=== PATIENT | male | born 1945 | race Caucasian/White ===

== ENCOUNTER 2021-12-18 14:33 | Emergency (ER) | payer MEDICARE ==
[~2021-12-18] VITALS: Ht 180.3 cm; Wt 93.5 kg
--- NOTE | 2021-12-18 16:19 | PHYS DOC ---
Past History Past Surgical History: Pacemaker, Other Additional Past Surgical Histo: open heart (EMILY PEREIRA APRN) Alcohol Use: None (EMILY PEREIRA APRN) Adult General Chief Complaint Chief Complaint: MEDICAL CLEARANCE HPI HPI Limited HPI related to severe Alzheimer's patient, HPI provided by patient's at bedside. Patient is a 76-year-old male with history of Alzheimer's dementia was sent here by home health nurse to be admitted to the geriatric behavioral psychiatric unit for evaluation to qualify for hospice care related to increased agitation at home. Patient's reports she has difficulties providing daily hygiene care for patient and it was recommended by the home health nurse to come to the emergency department for medical clearance for behavioral psych screening. (EMILY PEREIRA APRN) Review of Systems Review of Systems Limited ROS related to patient's severe Alzheimer's dementia. (EMILY PEREIRA APRN) Allergies Allergies Allergies Coded Allergies Type Severity Reaction Last Updated Verified No Known Drug Allergies 12/18/21 No (EMILY PEREIRA APRN) Physical Exam Physical Exam Constitutional: Well developed, well nourished, no acute distress, non-toxic appearance. 76-year-old male in no apparent distress. Patient confused, answers questions inappropriately, is easily directed by patient's . HENT: Normocephalic, atraumatic. Eyes: Conjunctiva normal, no discharge. Neck: Normal range of motion, no stridor. Cardiovascular: No cyanosis appreciated, distal cap refill less than 2 seconds. Heart sounds S1-S2 auscultation. Lungs & Thorax: Patient is in no respiratory distress, no audible adventitious lung sounds appreciated. Clear to auscultation all lung [place]. Abdomen: Nontender, no abnormalities noted. Skin: Warm, dry, no erythema, no rash. Back: No tenderness, no deformities. Extremities: No tenderness, no cyanosis, no clubbing, ROM intact, no edema. Neurologic: Alert and oriented to self only, normal motor function, normal sensory function, no focal deficits noted. Psychologic: Affect confused, patient has history of Alzheimer's dementia. (EMILY PEREIRA APRN) Current Patient Data Vital Signs Vital Signs Date Time Temp Pulse Resp B/P (MAP) Pulse Ox O2 Delivery O2 Flow Rate FiO2 12/18/21 14:39 98.0 71 11 148/69 (95) 98 Room Air (EMILY PEREIRA APRN) EKG EKG [] (EMILY PEREIRA APRN) Radiology/Procedures Radiology/Procedures [] (EMILY PEREIRA APRN) Heart Score C/O Chest Pain: No Risk Factors: Risk Factors: DM, Current or recent (<one month) smoker, HTN, HLP, family history of CAD, obesity. Risk Scores: Risk Factors: DM, Current or recent (<one month) smoker, HTN, HLP, family history of CAD, obesity. (EMILY PEREIRA APRN) Course & Med Decision Making Course & Med Decision Making Pertinent Labs and Imaging studies reviewed. (See chart for details) 76-year-old male, vital signs reviewed, resents emergency department for evaluation of psychiatric placement. Physical examination is consistent with Alzheimer's dementia patient, patient's reports she was told he could go straight to the behavioral health unit here at [facility], the behavioral health unit was called and did not know of any information of the patient but would be willing to accept placement tomorrow if a spot becomes available. Patient's called the patient's primary care physician Dr. Ba, a joint decision was made to send patient back home under the care of his as patient does not have any acute symptoms. Is not currently agitated, was brought here under the expectation this is the process to obtain hospice care, patient's reports the patient has no physical emergencies and she wishes to take him home at this time. The patient is nontoxic in appearance, is confused and at baseline per 's verbal explanation, will discharge patient to home under 's care, discussed return to ER precautions and concerns, it was reviewed with patient's that the emergency department will draw serum labs and obtain items for psychiatric placement, the patient's has refused this work her wishing to take him home. Discussed with the patient all findings and diagnostic testing as well as the need to follow-up with their primary care provider for further evaluation and treatment or return to the ED if any new or worsening symptoms. Strict return precautions were also discussed at length, the patient voiced understanding and agreement with the discharge planning. The patient was nontoxic in appearance, in no apparent distress, and hemodynamically stable at the time of disposition. (EMILY PEREIRA APRN) Dragon Disclaimer Dragon Disclaimer This electronic medical record was generated, in whole or in part, using a voice recognition dictation system. (EMILY PEREIRA APRN) Attending Co-Sign The patient was seen and interviewed as well as examined at the bedside. The chart was reviewed. The case was discussed. Agree with the plan of care. (IDANIA BARAHONA DO) Departure Departure: Impression: Primary Impression: Feared condition not demonstrated Disposition: 01 HOME / SELF CARE / HOMELESS Condition: GOOD Referrals: BÁRBARA BA (PCP) Additional Instructions: You were seen today in the emergency department for concerning behavioral changes at home. As we discussed, you and I have made a joint decision to discharge your to home under your care, please follow-up with Dr. aB today or tomorrow for ongoing management of your 's Alzheimer's dementia and concerns for hygiene care. Please return immediately to the emergency department for worsening symptoms or other concerns. Thank you for visiting our Emergency Department. It was a pleasure taking care of you today in the emergency department and we appreciate you trusting us with your care. If any additional problems come up don't hesitate to return to visit us. Please follow up with your primary care provider so they can plan additional care if needed a nd know about the problem that you had. If symptoms worsen come back to the Emergency Department. Any concerning symptoms that start such as chest pain, shortness of air, weakness or numbness on one side of the body, running high fevers or any other concerning symptoms return to the ER. EMILY PEREIRA APRN Dec 18, 2021 16:19 IDANIA BARAHONA DO Dec 19, 2021 11:35
[2021-12-18 16:30] VITALS: BP 155/74
== END 2021-12-18 16:30 | disposition home or self-care (01) ==
LOC: ER 14:33
DX: Z71.1 Person with feared health complaint in whom no diagnosis is made (principal); G30.9 Alzheimer's disease, unspecified; F02.80 Dementia in other diseases classified elsewhere, unspecified severity, without behavioral disturbance, psychotic disturbance, mood disturbance, and anxiety; Z95.0 Presence of cardiac pacemaker
CPT/HCPCS: 99283; 99284

== ENCOUNTER 2022-01-20 15:01 | Emergency (ER) | payer MEDICARE ==
[~2022-01-20] VITALS: Ht 180.3 cm; Wt 93.5 kg
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
--- NOTE | 2022-01-20 15:43 | EKG ---
[address] [address] Test Date: 2022-01-20 Test Time: 15:36:14 Pat Name: CEDRICK PUCKETT Department: Room: Gender: M Rehabilitation Psychologist: : 1945 Requested By: BOUBACAR VIDAL Order Number: [id number] Reading MD: Naveen Pierre Measurements Intervals [place] Rate: 71 P: 57 IN: 172 QRS: 71 QRSD: 90 T: 56 QT: 372 QTc: 409 Interpretive Statements A PACED VENTRICULAR PREMATURE COMPLEX(ES) ATRIAL PREMATURE COMPLEX(ES) NON SPECIFIC ST-T WAVE CHANGES Electronically Signed On 01-21-2022 17:39:23 HOTEL [employer] CON[employer]ERGE by Naveen Pierre
[2022-01-20] MEDS ORDERED: LORazepam 1 MG TABLET PO ONE (15:45)
[2022-01-20] MEDS ORDERED: OLANZapine 2.5 MG TABLET PO ONE (15:45)
--- NOTE | 2022-01-20 16:30 | RAD ---
CT brain without contrast HISTORY: Altered mental status, confusion CT scan of brain was done without contrast. Sinuses are clear. Mastoids are normally aerated. There i s no skull fracture. There is diffuse atrophy. There is decreased density in the periventricular whit e matter. There is decreased density in the right frontal lobe unchanged from the old study possibly an old CVA or old injury. There is no mass effect or shift of the midline. Ventricles are mildly dila ozzie from atrophy. An acute CVA is not identified. IMPRESSION: 1. Atrophy and chronic white matter changes. 2. Small area of encephalomalacia in the right frontal lobe unchanged from the old study. 3. No intracranial hemorrhage or other acute finding. PQRS Compliance Statement: One or more of the following individualized dose reduction techniques were utilized for this examinat ion: 1. Automated exposure control 2. Adjustment of the mA and/or kV according to patient size 3. Use of iterative reconstruction technique Electronically signed by: Reynaldo Elaine MD (01/20/2022 4:28 PM) [id number]
[2022-01-20 16:45] LABS: BASO % 1 % (0-3); EOS # 0.1 x10^3/uL (0.0-0.7); EOS % 1 % (0-3); HEMOGLOBIN 14.1 g/dL (13.0-17.5); LYMPH # 1.1 x10^3/uL (1.0-4.8); LYMPH % 16 % (24-48); MEAN CORPUSCULAR HEMOGLOBIN 29 pg (25-35); MEAN CORPUSCULAR HGB CONC 33 g/dL (31-37); MEAN CORPUSCULAR VOLUME 90 fL (79-100); MONO # 0.6 x10^3/uL (0.0-1.1); MONO % 9 % (0-9); NEUT # 4.9 x10^3uL (1.8-7.7); NEUT % 74 % (31-73); PLATELET COUNT 121 x10^3/uL (140-400); RED CELL DISTRIBUTION WIDTH 14.5 % (11.5-14.5); WHITE BLOOD COUNT 6.6 x10^3/uL (4.0-11.0)
[2022-01-20 16:54] LABS: CALCIUM 9.4 mg/dL (8.5-10.1); CREATININE 1.4 mg/dL (0.7-1.3); GFR 49.1; POTASSIUM 4.3 mmol/L (3.5-5.1)
[2022-01-20 17:06] LABS: ALBUMIN 3.6 g/dL (3.4-5.0); ALBUMIN/GLOBULIN RATIO 1.2 (1.0-1.7); MAGNESIUM 2.5 mg/dL (1.8-2.4); PHOSPHORUS 3.4 mg/dL (2.6-4.7); TOTAL BILIRUBIN 0.4 mg/dL (0.2-1.0); TOTAL PROTEIN 6.7 g/dL (6.4-8.2)
[2022-01-20 17:58] LABS: INFLUENZA A PATIENT NEGATIVE (NEGATIVE); INFLUENZA B PATIENT NEGATIVE (NEGATIVE)
[2022-01-21 08:16] LABS: BACTERIA,URINE 0 /HPF (0-FEW); CLARITY,URINE CLEAR; COLOR,URINE YELLOW; GLUCOSE,URINE NEG (NEG); NITRITE,URINE NEG (NEG); SQUAMOUS EPITHELIAL CELL,UR OCC /LPF
[2022-01-22 13:59] VITALS: BP 167/82
[2022-01-22] MEDS ORDERED: ALPR0.254 PO (16:21)
[2022-01-22] MEDS ORDERED: HALO2TAB PO (16:21)
[2022-01-22] MEDS ORDERED: MEMA10TA PO (16:21)
[2022-01-22] MEDS ORDERED: MIRA50TA3 PO (16:21)
[2022-01-22] MEDS ORDERED: PANT20TA4 PO (16:21)
[2022-01-22] MEDS ORDERED: FEXO180T16 PO (16:21)
[2022-01-22] MEDS ORDERED: CRESTOR20 MG PO (16:21)
[2022-01-22] MEDS ORDERED: BENA20TA84 PO (16:21)
[2022-01-22] MEDS ORDERED: ASPI-889 PO (16:21)
[2022-01-22] MEDS ORDERED: DONE10TA7 PO (16:21)
[2022-01-22] MEDS ORDERED: METO25TA4 PO (16:21)
== END 2022-01-22 14:43 ==
LOC: ER 15:01
DX: R45.6 Violent behavior (principal); G30.9 Alzheimer's disease, unspecified; F02.80 Dementia in other diseases classified elsewhere, unspecified severity, without behavioral disturbance, psychotic disturbance, mood disturbance, and anxiety; Z20.822 Contact with and (suspected) exposure to COVID-19; Z95.0 Presence of cardiac pacemaker
CPT/HCPCS: 70450; 80053; 81001; 83735; 83880; 84100; 84484; 85025; 87086; 87428; 93005; 96372; 99285; J2060; P9612; U0003

== ENCOUNTER 2022-01-22 15:15 | Inpatient (IN) | payer MEDICARE ==
[~2022-01-22] VITALS: Ht 177.8 cm; Wt 91.4 kg
[2022-01-22] MEDS ORDERED: CRESTOR20 MG PO (16:21)
[2022-01-22] MEDS ORDERED: ASPI-889 PO (16:21)
[2022-01-22] MEDS ORDERED: BENA20TA84 PO (16:21)
[2022-01-22] MEDS ORDERED: MEMA10TA PO (16:21)
[2022-01-22] MEDS ORDERED: FEXO-212 PO (16:21)
[2022-01-22] MEDS ORDERED: PANT20TA4 PO (16:21)
[2022-01-22] MEDS ORDERED: HALO2TAB PO (16:21)
[2022-01-22] MEDS ORDERED: DONE10TA7 PO (16:21)
[2022-01-22] MEDS ORDERED: ALPR0.254 PO (16:21)
[2022-01-22] MEDS ORDERED: METO25TA4 PO (16:21)
[2022-01-22] MEDS ORDERED: MIRA50TA3 PO (16:21)
[2022-01-22] MEDS ORDERED: HALOPERIDOL 0.5 MG TABLET PO PRN (16:30)
[2022-01-22 16:41] VITALS: BP 126/73
[2022-01-22] MEDS ORDERED: METHYL SALICYLATE/MENTHOL TOPICAL OINTMENT 57GM TUBE. TP PRN (16:45)
[2022-01-22] MEDS ORDERED: ACETAMINOPHEN 325 MG TABLET PO PRN (16:45)
[2022-01-22] MEDS ORDERED: MAG HYDROX/AL HYDROX/SIMETH 30 ML ORAL.SUSP PO PRN (16:45)
[2022-01-22] MEDS ORDERED: OLANZapine 2.5 MG TABLET PO PRN (17:00)
[2022-01-22 19:59] LABS: ALBUMIN 3.6 g/dL (3.4-5.0); CALCIUM 9.8 mg/dL (8.5-10.1); CREATININE 1.4 mg/dL (0.7-1.3); GFR 49.1; MAGNESIUM 2.4 mg/dL (1.8-2.4); POTASSIUM 4.4 mmol/L (3.5-5.1); TOTAL BILIRUBIN 0.5 mg/dL (0.2-1.0); TOTAL PROTEIN 7.2 g/dL (6.4-8.2)
[2022-01-22 20:01] LABS: BASO % 0 % (0-3); EOS # 0.1 x10^3/uL (0.0-0.7); EOS % 2 % (0-3); HEMATOCRIT 48.3 % (39.0-53.0); HEMOGLOBIN 15.4 g/dL (13.0-17.5); LYMPH # 1.3 x10^3/uL (1.0-4.8); LYMPH % 20 % (24-48); MEAN CORPUSCULAR HEMOGLOBIN 29 pg (25-35); MEAN CORPUSCULAR HGB CONC 32 g/dL (31-37); MEAN CORPUSCULAR VOLUME 91 fL (79-100); MONO # 0.7 x10^3/uL (0.0-1.1); MONO % 10 % (0-9); NEUT # 4.5 x10^3uL (1.8-7.7); NEUT % 68 % (31-73); PLATELET COUNT 145 x10^3/uL (140-400); RED BLOOD COUNT 5.29 x10^6/uL (4.30-5.70); RED CELL DISTRIBUTION WIDTH 14.8 % (11.5-14.5); WHITE BLOOD COUNT 6.6 x10^3/uL (4.0-11.0)
[2022-01-22] MEDS: ATORVASTATIN CALCIUM 20 MG TABLET PO SCH (20:40)
[2022-01-22] MEDS: MEMANTINE 10 MG TABLET. PO SCH (20:40)
[2022-01-22] MEDS: DONEPEZIL HCL 10 MG TABLET PO SCH (20:40)
[2022-01-22] MEDS: ALPRAZolam 0.25 MG TABLET PO PRN (20:40)
[2022-01-22] MEDS: METOPROLOL TART IMMED RELEASE 25 MG TABLET. PO SCH (20:40)
[2022-01-23 06:20] VITALS: BP 101/67
[2022-01-23] MEDS: ASPIRIN ENTERIC COATED 81 MG TABLET.DR. PO SCH (08:11)
[2022-01-23] MEDS: CETIRIZINE HCL 10 MG TABLET PO SCH (08:11)
[2022-01-23] MEDS: PANTOPRAZOLE 40 MG TABLET. PO SCH (08:11)
[2022-01-23] MEDS: METOPROLOL TART IMMED RELEASE 25 MG TABLET. PO SCH ×2 (08:11→21:37)
[2022-01-23] MEDS: LISINOPRIL 10 MG TABLET PO SCH (08:12)
[2022-01-23] MEDS: MIRABEGRON 25 MG TAB.ER.24H PO SCH (08:12)
[2022-01-23] MEDS: MEMANTINE 10 MG TABLET. PO SCH ×2 (08:12→21:36)
[2022-01-23 12:09] LABS: THYROXINE 6.2 ug/dL (4.5-12.0)
[2022-01-23] MEDS ORDERED: traZODone 50 MG TABLET. PO SCH (15:30)
[2022-01-23 16:15] VITALS: BP 104/64
[2022-01-23] MEDS: traZODone 50 MG TABLET. PO SCH (17:00)
[2022-01-23] MEDS ORDERED: IV NORMAL SALINE 1,000ML 1,000 ML IV ONE (17:15)
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
[2022-01-23 18:34] LABS: CHOLESTEROL/HDL RATIO 4.6; THYROID STIM HORMONE (TSH) 2.862 uIU/mL (0.358-3.740)
--- NOTE | 2022-01-23 18:54 | RAD ---
CT head without contrast dated 01/23/2022 6:48 PM Comparison: 01/20/2022 CLINICAL INDICATION: Unsteady gait combative. TECHNIQUE: Contiguous axial imaging of the head was performed from skull base to vertex. One or more of the following individualized dose reduction techniques were utilized for this examinat ion: 1. Automated exposure control 2. Adjustment of the mA and/or kV according to patient size 3. Use of iterative reconstruction technique. FINDINGS: Study is limited due to motion artifact. Ventricles and sulci are moderately prominent for age. No midline shift or mass effect. Moderate patc hy low density in the deep/subcortical periventricular white matter, similar to prior study. No appar ent hemorrhage or extra-axial collection. Posterior fossa and brainstem unremarkable. Visualized paranasal sinuses and mastoid air cells are clear. No apparent calvarial abnormality. IMPRESSION: 1. Limited exam due to motion artifact. 2. No apparent acute intracranial hemorrhage or mass. 3. Moderate chronic small vessel ischemic changes and atrophy. Electronically signed by: Jose Collazo MD (01/23/2022 6:51 PM) DENNYS
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
--- NOTE | 2022-01-23 21:30 | PDOC ---
Exam Note: Bernard Note: Late entry for 01/22/2022. Please also refer to the separate dictated note~for this date of service dictated separately.~Patient seen individually. Discussed the patient with Nursing staff reviewed the chart.~Reviewed interim history and current functioning. Reviewed vital signs,~Labs/ Radiology~and current medic ations noted below. Continue current treatment with the changes noted in the dictated addendum note Assessment: Vital Signs/I&O: Vital Signs Date Time Temp Pulse Resp B/P (MAP) Pulse Ox O2 Delivery O2 Flow Rate FiO2 01/23/22 16:15 98.5 72 18 104/64 (77) 94 Room Air I & O 01/22/22 01/22/22 01/23/22 15:00 23:00 07:00 Intake Total 720 ml Balance 720 ml Current Medications: Meds: Current Medications Medications (Trade) Dose Ordered Sig/Leoncio Route PRN Reason Start Time Stop Time Status Last Admin Dose Admin Alprazolam (Xanax) 0.25 mg PRN QHS PRN PO ANXIETY / AGITATION 01/22/22 16:30 01/22/22 20:40 Aspirin (Aspirin Enteric Coated) 81 mg DAILY PO 01/23/22 09:00 01/23/22 08:11 Donepezil HCl (Aricept) 10 mg QHS PO 01/22/22 21:00 01/22/22 20:40 Haloperidol (Haldol) 0.5 mg PRN TID PRN PO AGITATION 01/22/22 16:30 01/22/22 16:57 DC 01/22/22 16:29 Memantine (Namenda) 10 mg BID PO 01/22/22 21:00 01/23/22 08:12 Metoprolol Tartrate (Lopressor) 25 mg BID PO 01/22/22 21:00 01/23/22 08:11 Lisinopril (Prinivil) 10 mg DAILY PO 01/23/22 09:00 01/23/22 08:12 Cetirizine HCl (ZyrTEC) 10 mg DAILY PO 01/23/22 09:00 01/23/22 08:11 Mirabegron (Myrbetriq) 50 mg DAILY PO 01/23/22 09:00 01/23/22 08:12 Pantoprazole Sodium (Protonix) 40 mg DAILYAC PO 01/23/22 07:30 01/23/22 08:11 Atorvastatin Calcium (Lipitor) 80 mg QHS PO 01/22/22 21:00 01/22/22 20:40 Acetaminophen (Tylenol) 650 mg PRN Q6HRS PRN PO MILD PAIN / TEMP > 100.3'F 01/22/22 16:45 Multi-Ingredient Ointment (Analgesic [place]) 1 [place] PRN QID PRN TP MUSCLE PAIN 01/22/22 16:45 Al Hydroxide/Mg Hydroxide (Mylanta Plus Xs) 15 ml PRN AFTMEALHC PRN PO DYSPEPSIA 01/22/22 16:45 Magnesium Hydroxide (Milk Of Magnesia) 2,400 mg PRN QHS PRN PO CONSTIPATION 01/22/22 16:45 Olanzapine (ZyPREXA) 2.5 mg PRN Q2HR PRN PO AGITATION 01/22/22 17:00 01/22/22 17:06 DC Olanzapine (ZyPREXA ZYDIS) 2.5 mg PRN Q2HRS PRN PO PSYCHOSIS 01/22/22 17:15 01/23/22 11:45 Trazodone HCl (Desyrel) 50 mg PRN QHS PRN PO insomnia 01/22/22 21:45 Trazodone HCl (Desyrel) 25 mg DAILY PO 01/23/22 15:30 01/23/22 16:22 DC 01/23/22 15:30 Trazodone HCl (Desyrel) 25 mg 0900,1300,1700 PO 01/23/22 17:00 01/23/22 17:00 Sodium Chloride 1,000 ml @ 1,000 mls/hr 1X ONCE IV 01/23/22 17:15 01/23/22 18:14 DC 01/23/22 17:15 Current Medications Medications (Trade) Dose Ordered Sig/Leoncio Route PRN Reason Start Time Stop Time Status Last Admin Dose Admin Aspirin (Aspirin Enteric Coated) 81 mg DAILY PO 01/23/22 09:00 01/23/22 08:11 Lisinopril (Prinivil) 10 mg DAILY PO 01/23/22 09:00 01/23/22 08:12 Cetirizine HCl (ZyrTEC) 10 mg DAILY PO 01/23/22 09:00 01/23/22 08:11 Mirabegron (Myrbetriq) 50 mg DAILY PO 01/23/22 09:00 01/23/22 08:12 Pantoprazole Sodium (Protonix) 40 mg DAILYAC PO 01/23/22 07:30 01/23/22 08:11 Trazodone HCl (Desyrel) 25 mg DAILY PO 01/23/22 15:30 01/23/22 16:22 DC 01/23/22 15:30 Trazodone HCl (Desyrel) 25 mg 0900,1300,1700 PO 01/23/22 17:00 01/23/22 17:00 Sodium Chloride 1,000 ml @ 1,000 mls/hr 1X ONCE IV 01/23/22 17:15 01/23/22 18:14 DC 01/23/22 17:15 I have reviewed the current psychotropics carefully including drug interactions. Risk benefit ratio favors no change other than as noted in my dictated progress note. Diagnosis: Problems: (1) Major neurocognitive disorder (2) Dementia in Alzheimer's disease with delusions (3) Dementia in Alzheimer's disease with depression (4) Dementia of the Alzheimer's type with early onset with behavioral disturbance (5) Dementia, vascular, with delusions (6) Dementia, vascular, with depression (7) Anxiety disorder, unspecified (8) Impulse control disorder, unspecified SANCHEZ JEAN MD Jan 23, 2022 21:30
--- NOTE | 2022-01-23 21:31 | PDOC ---
Exam Note: Bernard Note: Please also refer to the separate dictated note~for this date of service dictated separately.~Patient seen individually. Discussed the patient with Nursing staff reviewed the chart.~Reviewed interim history and current functioning. Reviewed vital signs,~Labs/ Radiology~and current medications noted below. Continue current treatment with the changes noted in the dictated addendum note Assessment: Vital Signs/I&O: Vital Signs Date Time Temp Pulse Resp B/P (MAP) Pulse Ox O2 Delivery O2 Flow Rate FiO2 01/23/22 16:15 98.5 72 18 104/64 (77) 94 Room Air I & O 01/22/22 01/22/22 01/23/22 15:00 23:00 07:00 Intake Total 720 ml Balance 720 ml Current Medications: Meds: Current Medications Medications (Trade) Dose Ordered Sig/Leoncio Route PRN Reason Start Time Stop Time Status Last Admin Dose Admin Alprazolam (Xanax) 0.25 mg PRN QHS PRN PO ANXIETY / AGITATION 01/22/22 16:30 01/22/22 20:40 Aspirin (Aspirin Enteric Coated) 81 mg DAILY PO 01/23/22 09:00 01/23/22 08:11 Donepezil HCl (Aricept) 10 mg QHS PO 01/22/22 21:00 01/22/22 20:40 Haloperidol (Haldol) 0.5 mg PRN TID PRN PO AGITATION 01/22/22 16:30 01/22/22 16:57 DC 01/22/22 16:29 Memantine (Namenda) 10 mg BID PO 01/22/22 21:00 01/23/22 08:12 Metoprolol Tartrate (Lopressor) 25 mg BID PO 01/22/22 21:00 01/23/22 08:11 Lisinopril (Prinivil) 10 mg DAILY PO 01/23/22 09:00 01/23/22 08:12 Cetirizine HCl (ZyrTEC) 10 mg DAILY PO 01/23/22 09:00 01/23/22 08:11 Mirabegron (Myrbetriq) 50 mg DAILY PO 01/23/22 09:00 01/23/22 08:12 Pantoprazole Sodium (Protonix) 40 mg DAILYAC PO 01/23/22 07:30 01/23/22 08:11 Atorvastatin Calcium (Lipitor) 80 mg QHS PO 01/22/22 21:00 01/22/22 20:40 Acetaminophen (Tylenol) 650 mg PRN Q6HRS PRN PO MILD PAIN / TEMP > 100.3'F 01/22/22 16:45 Multi-Ingredient Ointment (Analgesic [place]) 1 [place] PRN QID PRN TP MUSCLE PAIN 01/22/22 16:45 Al Hydroxide/Mg Hydroxide (Mylanta Plus Xs) 15 ml PRN AFTMEALHC PRN PO DYSPEPSIA 01/22/22 16:45 Magnesium Hydroxide (Milk Of Magnesia) 2,400 mg PRN QHS PRN PO CONSTIPATION 01/22/22 16:45 Olanzapine (ZyPREXA) 2.5 mg PRN Q2HR PRN PO AGITATION 01/22/22 17:00 01/22/22 17:06 DC Olanzapine (ZyPREXA ZYDIS) 2.5 mg PRN Q2HRS PRN PO PSYCHOSIS 01/22/22 17:15 01/23/22 11:45 Trazodone HCl (Desyrel) 50 mg PRN QHS PRN PO insomnia 01/22/22 21:45 Trazodone HCl (Desyrel) 25 mg DAILY PO 01/23/22 15:30 01/23/22 16:22 DC 01/23/22 15:30 Trazodone HCl (Desyrel) 25 mg 0900,1300,1700 PO 01/23/22 17:00 01/23/22 17:00 Sodium Chloride 1,000 ml @ 1,000 mls/hr 1X ONCE IV 01/23/22 17:15 01/23/22 18:14 DC 01/23/22 17:15 Current Medications Medications (Trade) Dose Ordered Sig/Leoncio Route PRN Reason Start Time Stop Time Status Last Admin Dose Admin Aspirin (Aspirin Enteric Coated) 81 mg DAILY PO 01/23/22 09:00 01/23/22 08:11 Lisinopril (Prinivil) 10 mg DAILY PO 01/23/22 09:00 01/23/22 08:12 Cetirizine HCl (ZyrTEC) 10 mg DAILY PO 01/23/22 09:00 01/23/22 08:11 Mirabegron (Myrbetriq) 50 mg DAILY PO 01/23/22 09:00 01/23/22 08:12 Pantoprazole Sodium (Protonix) 40 mg DAILYAC PO 01/23/22 07:30 01/23/22 08:11 Trazodone HCl (Desyrel) 25 mg DAILY PO 01/23/22 15:30 01/23/22 16:22 DC 01/23/22 15:30 Trazodone HCl (Desyrel) 25 mg 0900,1300,1700 PO 01/23/22 17:00 01/23/22 17:00 Sodium Chloride 1,000 ml @ 1,000 mls/hr 1X ONCE IV 01/23/22 17:15 01/23/22 18:14 DC 01/23/22 17:15 I have reviewed the current psychotropics carefully including drug interactions. Risk benefit ratio favors no change other than as noted in my dictated progress note. Diagnosis: Problems: (1) Impulse control disorder, unspecified (2) Anxiety disorder, unspecified (3) Dementia, vascular, with depression (4) Dementia, vascular, with delusions (5) Dementia in Alzheimer's disease with depression (6) Dementia in Alzheimer's disease with delusions (7) Dementia of the Alzheimer's type with early onset with behavioral disturbance (8) Major neurocognitive disorder SANCHEZ JEAN MD Jan 23, 2022 21:31
[2022-01-23] MEDS: ATORVASTATIN CALCIUM 20 MG TABLET PO SCH (21:36)
[2022-01-23] MEDS: DONEPEZIL HCL 10 MG TABLET PO SCH (21:36)
[2022-01-23] MEDS: traZODone 50 MG TABLET. PO PRN (21:38)
[2022-01-24 01:12] LABS: HEMOGLOBIN A1C 6.4 % (4.8-5.6)
[2022-01-24 06:23] VITALS: BP 154/69
--- NOTE | 2022-01-24 07:25 | PDOC ---
Exam Note: Bernard Note: This note is a late entry for 01/23/2022 covers elements not covered in my initial note. Subjective: The patient was seen individually on 01/23/2022, discussed and reviewed the chart with Evelyne MONTALVO. The patient slept 6-3/4 hours previous night. He has been intermittently agitated, extremely restless. Nursing staff had called me late last night. He was having difficult time sleeping and we added trazodone h.s. p.r.n. I was again called this afternoon as he was almost on one-on-one status and we started trazodone scheduled 25 mg 9 a.m., 1 p.m. and 5 p.m. Reviewed information with Dr. South. CT head is being repeated in case the patient has a CVA. That was not picked up in the CT in the ER. states the patients confusion appears to have significantly worsened since his hospitalization. UA in the ER was positive but the culture returned negative and we will repeat it. Also discussed the patient with Dr. Cruz since the shared that the patient might have had a history of seizures. In my discussion with Dr. Cruz, it appears rather unlikely but nursing staff will observe him closely for this. We will also repeat UA, straight cath. I have reviewed labs and we will check TSH as well. Review of Systems: Ambulation impaired, in wheelchair. No CV, , pulmonary, eye, ENT system symptoms on review. Reliability poor. Mental Status Exam: The patient is oriented to himself. Insight and judgment, recent and remote memory, attention and concentration, fund of knowledge is poor consistent with his diagnoses. Laboratory Data: Reviewed. Impression: Major neurocognitive disorder, early Alzheimer, vascular with delusion, depression, behavioral disturbance. Anxiety disorder unspecified. Impulse control disorder unspecified. Plan: No change from initial note. He is on Namenda 10 mg b.i.d., Aricept 10 mg a day. If these will be of some benefit we will consider stopping it in a day or two. He remains on Zyprexa and Xanax p.r.n., schedule trazodone 25 mg 9 a.m., 1 p.m., 5 p.m. Check labs as above. Consider low dose Depakote for behavior dyscontrol. Make further adjustments as clinically indicated. Assessment: Vital Signs/I&O: Vital Signs Date Time Temp Pulse Resp B/P (MAP) Pulse Ox O2 Delivery O2 Flow Rate FiO2 01/24/22 06:23 97.3 66 16 154/69 (97) 95 01/23/22 16:15 Room Air I & O 01/23/22 01/23/22 01/24/22 15:00 23:00 07:00 Intake Total 480 ml 240 ml 0 ml Balance 480 ml 240 ml 0 ml Current Medications: Meds: Current Medications Medications (Trade) Dose Ordered Sig/Leoncio Route PRN Reason Start Time Stop Time Status Last Admin Dose Admin Aspirin (Aspirin Enteric Coated) 81 mg DAILY PO 01/23/22 09:00 01/23/22 08:11 Lisinopril (Prinivil) 10 mg DAILY PO 01/23/22 09:00 01/23/22 08:12 Cetirizine HCl (ZyrTEC) 10 mg DAILY PO 01/23/22 09:00 01/23/22 08:11 Mirabegron (Myrbetriq) 50 mg DAILY PO 01/23/22 09:00 01/23/22 08:12 Pantoprazole Sodium (Protonix) 40 mg DAILYAC PO 01/23/22 07:30 01/23/22 08:11 Trazodone HCl (Desyrel) 25 mg DAILY PO 01/23/22 15:30 01/23/22 16:22 DC 01/23/22 15:30 Trazodone HCl (Desyrel) 25 mg 0900,1300,1700 PO 01/23/22 17:00 01/23/22 17:00 Sodium Chloride 1,000 ml @ 1,000 mls/hr 1X ONCE IV 01/23/22 17:15 01/23/22 18:14 DC 01/23/22 17:15 I have reviewed the current psychotropics carefully including drug interactions. Risk benefit ratio favors no change other than as noted in my dictated progress note. Diagnosis: Problems: (1) Impulse control disorder, unspecified (2) Anxiety disorder, unspecified (3) Dementia, vascular, with depression (4) Dementia, vascular, with delusions (5) Dementia in Alzheimer's disease with depression (6) Dementia in Alzheimer's disease with delusions (7) Dementia of the Alzheimer's type with early onset with behavioral disturbance (8) Major neurocognitive disorder SANCHEZ JEAN MD Jan 24, 2022 07:25
[2022-01-24] MEDS: PANTOPRAZOLE 40 MG TABLET. PO SCH (07:30)
[2022-01-24] MEDS: LISINOPRIL 10 MG TABLET PO SCH (09:00)
[2022-01-24] MEDS: ASPIRIN ENTERIC COATED 81 MG TABLET.DR. PO SCH (09:00)
[2022-01-24] MEDS: MIRABEGRON 25 MG TAB.ER.24H PO SCH (09:00)
[2022-01-24] MEDS: traZODone 50 MG TABLET. PO SCH ×3 (09:00→17:00)
[2022-01-24] MEDS: METOPROLOL TART IMMED RELEASE 25 MG TABLET. PO SCH ×2 (09:00→21:00)
[2022-01-24] MEDS: MEMANTINE 10 MG TABLET. PO SCH (09:00)
[2022-01-24] MEDS: CETIRIZINE HCL 10 MG TABLET PO SCH (09:00)
[2022-01-24 15:51] VITALS: BP 111/64
[2022-01-24] MEDS: ALPRAZolam 0.25 MG TABLET PO PRN (19:35)
[2022-01-24] MEDS: ATORVASTATIN CALCIUM 20 MG TABLET PO SCH (19:35)
[2022-01-24] MEDS: traZODone 50 MG TABLET. PO PRN ×2 (19:35→22:09)
--- NOTE | 2022-01-24 22:19 | PDOC ---
Exam Note: Bernard Note: Please also refer to the separate dictated note~for this date of service dictated separately.~Patient seen individually. Discussed the patient with Nursing staff reviewed the chart.~Reviewed interim history and current functioning. Reviewed vital signs,~Labs/ Radiology~and current medications noted below. Continue current treatment with the changes noted in the dictated addendum note Assessment: Vital Signs/I&O: Vital Signs Date Time Temp Pulse Resp B/P (MAP) Pulse Ox O2 Delivery O2 Flow Rate FiO2 01/24/22 15:51 97.8 76 20 111/64 (80) 94 01/23/22 16:15 Room Air I & O 01/23/22 01/23/22 01/24/22 15:00 23:00 07:00 Intake Total 480 ml 240 ml 0 ml Balance 480 ml 240 ml 0 ml Current Medications: Meds: Current Medications Medications (Trade) Dose Ordered Sig/Leoncio Route PRN Reason Start Time Stop Time Status Last Admin Dose Admin Alprazolam (Xanax) 0.25 mg PRN QHS PRN PO ANXIETY / AGITATION 01/22/22 16:30 01/24/22 19:35 Aspirin (Aspirin Enteric Coated) 81 mg DAILY PO 01/23/22 09:00 01/24/22 09:00 Donepezil HCl (Aricept) 10 mg QHS PO 01/22/22 21:00 01/24/22 16:39 DC 01/23/22 21:36 Haloperidol (Haldol) 0.5 mg PRN TID PRN PO AGITATION 01/22/22 16:30 01/22/22 16:57 DC 01/22/22 16:29 Memantine (Namenda) 10 mg BID PO 01/22/22 21:00 01/24/22 16:38 DC 01/24/22 09:00 Metoprolol Tartrate (Lopressor) 25 mg BID PO 01/22/22 21:00 01/24/22 09:00 Lisinopril (Prinivil) 10 mg DAILY PO 01/23/22 09:00 01/24/22 09:00 Cetirizine HCl (ZyrTEC) 10 mg DAILY PO 01/23/22 09:00 01/24/22 09:00 Mirabegron (Myrbetriq) 50 mg DAILY PO 01/23/22 09:00 01/24/22 09:00 Pantoprazole Sodium (Protonix) 40 mg DAILYAC PO 01/23/22 07:30 01/24/22 07:30 Atorvastatin Calcium (Lipitor) 80 mg QHS PO 01/22/22 21:00 01/24/22 19:35 Acetaminophen (Tylenol) 650 mg PRN Q6HRS PRN PO MILD PAIN / TEMP > 100.3'F 01/22/22 16:45 Multi-Ingredient Ointment (Analgesic [place]) 1 [place] PRN QID PRN TP MUSCLE PAIN 01/22/22 16:45 Al Hydroxide/Mg Hydroxide (Mylanta Plus Xs) 15 ml PRN AFTMEALHC PRN PO DYSPEPSIA 01/22/22 16:45 Magnesium Hydroxide (Milk Of Magnesia) 2,400 mg PRN QHS PRN PO CONSTIPATION 01/22/22 16:45 Olanzapine (ZyPREXA) 2.5 mg PRN Q2HR PRN PO AGITATION 01/22/22 17:00 01/22/22 17:06 DC Olanzapine (ZyPREXA ZYDIS) 2.5 mg PRN Q2HRS PRN PO PSYCHOSIS 01/22/22 17:15 01/23/22 11:45 Trazodone HCl (Desyrel) 50 mg PRN QHS PRN PO insomnia 01/22/22 21:45 01/24/22 22:09 Trazodone HCl (Desyrel) 25 mg DAILY PO 01/23/22 15:30 01/23/22 16:22 DC 01/23/22 15:30 Trazodone HCl (Desyrel) 25 mg 0900,1300,1700 PO 01/23/22 17:00 01/24/22 17:00 Sodium Chloride 1,000 ml @ 1,000 mls/hr 1X ONCE IV 01/23/22 17:15 01/23/22 18:14 DC 01/23/22 17:15 I have reviewed the current psychotropics carefully including drug interactions. Risk benefit ratio favors no change other than as noted in my dictated progress note. Diagnosis: Problems: (1) Impulse control disorder, unspecified (2) Anxiety disorder, unspecified (3) Dementia, vascular, with depression (4) Dementia, vascular, with delusions (5) Dementia in Alzheimer's disease with depression (6) Dementia in Alzheimer's disease with delusions (7) Dementia of the Alzheimer's type with early onset with behavioral disturbance (8) Major neurocognitive disorder SANCHEZ JEAN MD Jan 24, 2022 22:19
--- NOTE | 2022-01-25 00:53 | CONS ---
DATE OF CONSULTATION: 01/23/2022 NEUROLOGICAL CONSULTATION REFERRING PHYSICIAN: Dr. Hernandez and Dr. South. REASON FOR CONSULTATION: Rule out seizure. HISTORY OF PRESENT ILLNESS: This is a 76-year-old right-handed male who was [facility]22 on account of being agitated, refusing care, aggressive and combative behavior towards his , difficulty sleeping. The patient became incontinent; however, when his tried to clean him, he started hitting her. The patient was evaluated in the Emergency Room at [facility] on 01/20/2022 as well. Consult was requested because the patient's stated he has been having shaking spells intermittently for the last year or so. The last time he has spells will be several days ago. It is not clear whether the patient have seizure-like activities or tremor. He has not had any seizures since admission. The patient is not able to provide any information due to his major depression and possible dementia of Alzheimer type. According to the , the patient would have a spell lasted a few seconds and then he became normal and returned to his baseline, but sometimes he stated he would lose his consciousness and falls. Therefore, it is not clear whether the patient had postictal confusions or seizure-like activities. He has not had any history of seizure disorder throughout his life. During the interview, the patient was confused, disoriented and unable to provide any information or answer any questions. PAST MEDICAL HISTORY: Significant for progressive dementia; behavior disturbances; depressions; coronary artery disease, status post coronary artery bypass graft in 05/2019; diabetes mellitus; hypertension; benign prostate hypertrophy; Flowers's esophagus and unsteady gait. FAMILY HISTORY: Noncontributory. SOCIAL HISTORY: Not obtainable, but the patient has no history of smoking, alcohol drinking, or illicit drug use. CURRENT MEDICATIONS: Trazodone 25 mg at 3 times a day, mirabegron 50 mg p.o. daily for urinary incontinence and frequency, Zyrtec 10 mg daily, lisinopril 10 mg p.o. daily, aspirin 81 mg p.o. daily, pantoprazole 40 mg p.o. daily, trazodone 50 mg p.r.n. at bedtime for insomnia, Lipitor 80 mg p.o. at bedtime, metoprolol 25 mg b.i.d., olanzapine 2.5 mg q. 2 hours p.r.n. for agitation, alprazolam 0.25 mg p.r.n. bedtime for agitation. ALLERGIES: No known drug allergies. PHYSICAL EXAMINATION: GENERAL: Well-developed, well-nourished male, in no acute distress. He weighs 86.3 kilos. VITAL SIGNS: Blood pressure 104/64, respiratory rate 18, pulse is 72 and regular, oxygen saturation 94%, temperature is 98.5. HEENT: Normocephalic, atraumatic, otherwise unremarkable. NECK: Supple, negative for carotid bruit, lymphadenopathy or thyromegaly. LUNGS: Clear to A and P. CARDIOVASCULAR: Regular rate and rhythm, normal S1, S2. ABDOMEN: Soft. Bowel sounds positive. EXTREMITIES: Negative for cyanosis, clubbing, or pedal edema. NEUROLOGIC: Mental status: The patient is alert, but disoriented x 3. Speech is fluent, but not coherent. He is very anxious and restless. Memory, judgment, abstracting, and thinking are poor. Cranial nerves: Pupils are equal and reactive to light. Extraocular movements are intact. There is no nystagmus. Difficult to evaluate his visual [place] due to his mental status. No facial motor or sensory deficits. Hearing appeared to be intact. Further evaluation of his cranial nerves are limited as the patient does not follow commands. Motor exam: No focal muscle bulk wasting. The tone is normal. The strength is 4/5 throughout. The sensory examination revealed the patient withdrawal to noxious stimuli. Deep tendon reflexes are hypoactive without pathology responses. Gait not tested as the patient unsteady and he uses a wheelchair for ambulation. LABORATORY DATA: From 01/22/2022 revealed white blood cells of 6.6 thousand, hemoglobin 15.4, hematocrit 48.3, platelet count 145,000. Chemistry revealed a sodium of 144, potassium 4.4, chloride 106, CO2 of 32, BUN 27, creatinine 1.4, glucose 174, calcium 9.8, phosphorus and magnesium are normal. Iron is low at 38. Liver enzymes are normal, BNP is high at 1204. Troponin level, troponin 1 high sensitivity is 11. Lipid profile revealed high triglyceride at 196 and high cholesterol at 226 with high LDL at 138 with normal HDL at 49. TSH is normal. Vitamin B12 is normal at 565 and vitamin D is normal as well at 33.7. IMPRESSION: 1. History of frequent spells described as tremor versus seizure-like activities, complicated occasionally was a loss of consciousness and urinary incontinence, rule out epileptic versus nonepileptic seizure. 2. Multiple medical problems include coronary artery disease, status post coronary artery bypass graft; diabetes mellitus type 2; hypertension; benign prostate hypertrophy; Flowers's esophagus. 3. Dementia, vascular versus Alzheimer type. 4. Multiple psychiatric problems includes acute behavior disturbances, anxiety disorders, impulse control disorders. RECOMMENDATIONS: 1. To obtain electroencephalogram rule out epileptic versus nonepileptic seizure. 2. Continue with current medical care. 3. Continue with current psychiatric care. KYLAH/ALLAN/BENITO DR: Mariama TID: [id number]
[2022-01-25 06:42] VITALS: BP 154/68
[2022-01-25] MEDS: MIRABEGRON 25 MG TAB.ER.24H PO SCH (08:05)
[2022-01-25] MEDS: CETIRIZINE HCL 10 MG TABLET PO SCH (08:05)
[2022-01-25] MEDS: PANTOPRAZOLE 40 MG TABLET. PO SCH (08:05)
[2022-01-25] MEDS: METOPROLOL TART IMMED RELEASE 25 MG TABLET. PO SCH ×2 (08:05→21:00)
[2022-01-25] MEDS: ASPIRIN ENTERIC COATED 81 MG TABLET.DR. PO SCH (08:06)
[2022-01-25] MEDS: LISINOPRIL 10 MG TABLET PO SCH (08:06)
[2022-01-25] MEDS: traZODone 50 MG TABLET. PO SCH ×3 (08:11→16:24)
[2022-01-25 08:24] LABS: BACTERIA,URINE 0 /HPF (0-FEW); CLARITY,URINE HAZY; COLOR,URINE YELLOW; GLUCOSE,URINE NEG (NEG); NITRITE,URINE NEG (NEG); SQUAMOUS EPITHELIAL CELL,UR OCC /LPF; UROBILINOGEN,URINE 0.2 mg/dL (0.2 mg/dL)
[2022-01-25 08:25] LABS: HYALINE CASTS, URINE FEW /HPF
[2022-01-25 15:38] VITALS: BP 108/61
[2022-01-25] MEDS: ATORVASTATIN CALCIUM 20 MG TABLET PO SCH (21:00)
--- NOTE | 2022-01-25 21:40 | PDOC ---
Exam Note: Bernard Note: Please also refer to the separate dictated note~for this date of service dictated separately.~Patient seen individually. Discussed the patient with Nursing staff reviewed the chart.~Reviewed interim history and current functioning. Reviewed vital signs,~Labs/ Radiology~and current medications noted below. Continue current treatment with the changes noted in the dictated addendum note Assessment: Vital Signs/I&O: Vital Signs Date Time Temp Pulse Resp B/P (MAP) Pulse Ox O2 Delivery O2 Flow Rate FiO2 01/25/22 15:38 98.9 70 18 108/61 (77) 93 01/25/22 06:42 Room Air I & O 01/24/22 01/24/22 01/25/22 15:00 23:00 07:00 Intake Total 240 ml Balance 240 ml Labs: Laboratory Tests Test 01/25/22 06:40 Urine Collection Type U cath Urine Color Yellow Urine Clarity Hazy Urine pH 5.5 Urine Specific [place] >=1.030 Urine Protein Trace (NEG-TRACE) Urine Glucose (UA) Neg mg/dL (NEG) Urine Ketones (Stick) Neg mg/dL (NEG) Urine Blood Trace (NEG) Urine Nitrite Neg (NEG) Urine Bilirubin Neg (NEG) Urine Urobilinogen Dipstick 0.2 mg/dL (0.2 mg/dL) Urine Leukocyte Esterase Neg (NEG) Urine RBC 3-5 /HPF (0-2) Urine WBC 5-10 /HPF (0-4) Urine Squamous Epithelial Cells Occ /LPF Urine Renal Epithelial Cells Few /LPF Urine Bacteria 0 /HPF (0-FEW) Urine Hyaline Casts Few /HPF Urine Mucus Marked /LPF Current Medications: Meds: Laboratory Tests Test 01/25/22 06:40 Urine Collection Type U cath Urine Color Yellow Urine Clarity Hazy Urine pH 5.5 Urine Specific [place] >=1.030 Urine Protein Trace Urine Glucose (UA) Neg mg/dL Urine Ketones (Stick) Neg mg/dL Urine Blood Trace Urine Nitrite Neg Urine Bilirubin Neg Urine Urobilinogen Dipstick 0.2 mg/dL Urine Leukocyte Esterase Neg Urine RBC 3-5 /HPF Urine WBC 5-10 /HPF Urine Squamous Epithelial Cells Occ /LPF Urine Renal Epithelial Cells Few /LPF Urine Bacteria 0 /HPF Urine Hyaline Casts Few /HPF Urine Mucus Marked /LPF Current Medications Medications (Trade) Dose Ordered Sig/Leoncio Route PRN Reason Start Time Stop Time Status Last Admin Dose Admin Alprazolam (Xanax) 0.25 mg PRN QHS PRN PO ANXIETY / AGITATION 01/22/22 16:30 01/24/22 19:35 Aspirin (Aspirin Enteric Coated) 81 mg DAILY PO 01/23/22 09:00 01/25/22 08:06 Donepezil HCl (Aricept) 10 mg QHS PO 01/22/22 21:00 01/24/22 16:39 DC 01/23/22 21:36 Haloperidol (Haldol) 0.5 mg PRN TID PRN PO AGITATION 01/22/22 16:30 01/22/22 16:57 DC 01/22/22 16:29 Memantine (Namenda) 10 mg BID PO 01/22/22 21:00 01/24/22 16:38 DC 01/24/22 09:00 Metoprolol Tartrate (Lopressor) 25 mg BID PO 01/22/22 21:00 01/25/22 08:05 Lisinopril (Prinivil) 10 mg DAILY PO 01/23/22 09:00 01/25/22 08:06 Cetirizine HCl (ZyrTEC) 10 mg DAILY PO 01/23/22 09:00 01/25/22 08:05 Mirabegron (Myrbetriq) 50 mg DAILY PO 01/23/22 09:00 01/25/22 08:05 Pantoprazole Sodium (Protonix) 40 mg DAILYAC PO 01/23/22 07:30 01/25/22 08:05 Atorvastatin Calcium (Lipitor) 80 mg QHS PO 01/22/22 21:00 01/24/22 19:35 Acetaminophen (Tylenol) 650 mg PRN Q6HRS PRN PO MILD PAIN / TEMP > 100.3'F 01/22/22 16:45 Multi-Ingredient Ointment (Analgesic Ronald) 1 dalton PRN QID PRN TP MUSCLE PAIN 01/22/22 16:45 Al Hydroxide/Mg Hydroxide (Mylanta Plus Xs) 15 ml PRN AFTMEALHC PRN PO DYSPEPSIA 01/22/22 16:45 Magnesium Hydroxide (Milk Of Magnesia) 2,400 mg PRN QHS PRN PO CONSTIPATION 01/22/22 16:45 Olanzapine (ZyPREXA) 2.5 mg PRN Q2HR PRN PO AGITATION 01/22/22 17:00 01/22/22 17:06 DC Olanzapine (ZyPREXA ZYDIS) 2.5 mg PRN Q2HRS PRN PO PSYCHOSIS 01/22/22 17:15 01/25/22 11:10 Trazodone HCl (Desyrel) 50 mg PRN QHS PRN PO insomnia 01/22/22 21:45 01/24/22 22:09 Trazodone HCl (Desyrel) 25 mg DAILY PO 01/23/22 15:30 01/23/22 16:22 DC 01/23/22 15:30 Trazodone HCl (Desyrel) 25 mg 0900,1300,1700 PO 01/23/22 17:00 01/25/22 16:24 Sodium Chloride 1,000 ml @ 1,000 mls/hr 1X ONCE IV 01/23/22 17:15 01/23/22 18:14 DC 01/23/22 17:15 I have reviewed the current psychotropics carefully including drug interactions. Risk benefit ratio favors no change other than as noted in my dictated progress note. Diagnosis: Problems: (1) Impulse control disorder, unspecified (2) Anxiety disorder, unspecified (3) Dementia, vascular, with depression (4) Dementia, vascular, with delusions (5) Dementia in Alzheimer's disease with depression (6) Dementia in Alzheimer's disease with delusions (7) Dementia of the Alzheimer's type with early onset with behavioral disturbance (8) Major neurocognitive disorder SANCHEZ JEAN MD Jan 25, 2022 21:40
--- NOTE | 2022-01-25 23:43 | PN ---
DATE: 01/24/2022 SUBJECTIVE: The patient denies any new medical or neurological complaints; however, he is unable to provide any information. According to the nursing staff, the patient has not had any recurrence of seizure-like activities, head injuries or recent falls. OBJECTIVE: GENERAL: Well-developed, well-nourished male, not in acute distress. He weighs 86.3 kilos. VITAL SIGNS: Blood pressure 111/64, respiratory rate 20, pulse is 76 and regular, temperature is 97.8, oxygen saturation 94% on room air. HEENT: Normocephalic, atraumatic, otherwise unremarkable. NECK: Supple, negative for carotid bruit, lymphadenopathy or thyromegaly. LUNGS: Clear to A and P. CARDIOVASCULAR: Regular rhythm. Normal S1, S2. There is no S3, S4 or murmur. ABDOMEN: Soft. Bowel sounds positive. EXTREMITIES: Negative for cyanosis, clubbing or pedal edema. NEUROLOGIC: Mental Status: The patient is awake, but disoriented to time, place and person. Speech is somewhat fluent. There is no language dysfunction. Memory, judgment and abstracting thinking are poor. The patient denies hallucination or delusion. Cranial nerves are grossly intact. No focal motor or sensory facial deficit. Hearing is intact bilaterally, otherwise, unremarkable. Motor exam: No focal muscle bulk wasting. The tone is normal. The strength is 4/5 throughout. The patient moves his upper and lower extremity at present. Sensory examination revealed normal pinprick and light touch senses. Deep tendon reflexes were symmetric and hypoactive with absent Achilles responses. Gait not tested. DIAGNOSTIC STUDIES: Nonenhanced head CT scan revealed no acute intracranial process and a moderate chronic small vessel ischemic changes with atrophy. IMPRESSION: 1. History of seizure-like activities reported by his as tremor or shaking of the extremities, no observed seizure since admission. 2. Multiple medical problems including dementia of Alzheimer type, anxiety disorder. 3. Multiple medical problems include coronary artery disease, diabetes mellitus type 2, hypertension, benign prostate hypertrophy and Flowers's esophagus. RECOMMENDATIONS: 1. Continue with current medical and psychiatric care. 2. Await for electroencephalogram. TOMA DR: Mariama TID: [id number]
[2022-01-26 06:31] VITALS: BP 137/66
[2022-01-26] MEDS: PANTOPRAZOLE 40 MG TABLET. PO SCH (07:30)
--- NOTE | 2022-01-26 08:20 | PDOC ---
Exam Note: Bernrad Note: This note is a late entry for 01/24/2022 covers elements not covered in my initial note. Subjective: The patient was seen individually on 01/24/2022, discussed and reviewed the chart with Evelyne MONTALVO. The patient slept 6 hours previous night. He had an unsteady gait and nursing staff have been with him on one-on-one. He slept till 11.30 a.m., restless in his chair in his room. His stated he walks a lot at home and [place]. Review of Systems: Ambulation impaired, in wheelchair. No CV, , pulmonary, eye, ENT system symptoms on review. Reliability poor. Mental Status Exam: The patient is oriented to himself. Insight and judgment, recent and remote memory, attention and concentration, fund of knowledge is poor consistent with his diagnoses. Laboratory Data: Reviewed. Impression: Major neurocognitive disorder, early Alzheimer, vascular with delusion, depression, behavioral disturbance. Anxiety disorder unspecified. Impulse control disorder unspecified. Plan: At this stage as far as the patients dementia, there is probably little benefit from Aricept and Namenda and we will go ahead and stop it. Continue rest psychotropics unchanged. Minimize any sedating psychotropics and once he is more awake we will make further adjustments in his psychotropics including considering SSRIs perhaps Zoloft. Assessment: Vital Signs/I&O: Vital Signs Date Time Temp Pulse Resp B/P (MAP) Pulse Ox O2 Delivery O2 Flow Rate FiO2 01/26/22 06:31 97.3 73 18 137/66 (89) 94 Room Air I & O 01/25/22 01/25/22 01/26/22 15:00 23:00 07:00 Intake Total 380 ml Balance 380 ml Current Medications: I have reviewed the current psychotropics carefully including drug interactions. Risk benefit ratio favors no change other than as noted in my dictated progress note. Diagnosis: Problems: (1) Impulse control disorder, unspecified (2) Anxiety disorder, unspecified (3) Dementia, vascular, with depression (4) Dementia, vascular, with delusions (5) Dementia in Alzheimer's disease with depression (6) Dementia in Alzheimer's disease with delusions (7) Dementia of the Alzheimer's type with early onset with behavioral disturbance (8) Major neurocognitive disorder SANCHEZ JEAN MD Jan 26, 2022 08:20
--- NOTE | 2022-01-26 08:33 | PDOC ---
Exam Note: Bernard Note: This note is a late entry for 01/25/2022 covers elements not covered in my initial note. Subjective: The patient was reviewed at treatment team meeting in the morning on 01/25/2022 with Shanon Rao, Nicole Harris (case management social worker), Armida, activity therapy, and Livia MONTALVO, discussed and reviewed the chart. Patients Elena attended the treatment team meeting. Discussed and reviewed his diagnoses, progress, psychotropic medications at length. The patient slept 5 hours previous night. Average sleep 6-1/2 hours. Appetite 80%. He takes meds in ice-cream. 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 The patients daughter had a traumatic brain injury and is having surgery, raising the stress on the . The does want him back home once he is stabilized. At home he would keep himself walking or doing different thin gs around the house and activity therapy will come up with some activities to assist with this while he is here. Review of Systems: Ambulation impaired, in wheelchair. No CV, , pulmonary, eye, ENT system symptoms on review. Reliability poor. Mental Status Exam: The patient is oriented to himself. Insight and judgment, recent and remote memory, attention and concentration, fund of knowledge is poor consistent with his diagnoses. Laboratory Data: Reviewed. Impression: Major neurocognitive disorder, early Alzheimer, vascular with delusion, depression, behavioral disturbance. Anxiety disorder unspecified. Impulse control disorder unspecified. Plan: Stop the patients Aricept and Namenda, probably has little benefit at this stage of his vascular dementia. Maintain rest of the psychotropics unchanged. Consider adding Zoloft for mood and anxiety symptoms. Assessment: Vital Signs/I&O: Vital Signs Date Time Temp Pulse Resp B/P (MAP) Pulse Ox O2 Delivery O2 Flow Rate FiO2 01/26/22 06:31 97.3 73 18 137/66 (89) 94 Room Air I & O 01/25/22 01/25/22 01/26/22 15:00 23:00 07:00 Intake Total 380 ml Balance 380 ml Current Medications: I have reviewed the current psychotropics carefully including drug interactions. Risk benefit ratio favors no change other than as noted in my dictated progress note. Diagnosis: Problems: (1) Impulse control disorder, unspecified (2) Anxiety disorder, unspecified (3) Dementia, vascular, with depression (4) Dementia, vascular, with delusions (5) Dementia in Alzheimer's disease with depression (6) Dementia in Alzheimer's disease with delusions (7) Dementia of the Alzheimer's type with early onset with behavioral disturbance (8) Major neurocognitive disorder SANCHEZ JEAN MD Jan 26, 2022 08:33
[2022-01-26] MEDS: LISINOPRIL 10 MG TABLET PO SCH (09:00)
[2022-01-26] MEDS: CETIRIZINE HCL 10 MG TABLET PO SCH (09:00)
[2022-01-26] MEDS: traZODone 50 MG TABLET. PO SCH ×3 (09:00→17:00)
[2022-01-26] MEDS: METOPROLOL TART IMMED RELEASE 25 MG TABLET. PO SCH ×2 (09:00→21:14)
[2022-01-26] MEDS: ASPIRIN ENTERIC COATED 81 MG TABLET.DR. PO SCH (09:00)
[2022-01-26] MEDS: MIRABEGRON 25 MG TAB.ER.24H PO SCH (09:00)
[2022-01-26 16:06] VITALS: BP 130/72
[2022-01-26] MEDS: ATORVASTATIN CALCIUM 20 MG TABLET PO SCH (21:13)
--- NOTE | 2022-01-26 21:45 | PN ---
DATE: 01/26/2022 SUBJECTIVE: The patient was seen today, met with the staff. Chart reviewed. Staff reports that the patient is unsteady. The patient's appetite has improved. The patient is also having difficulty taking care of his needs. OBSERVATION: VITAL SIGNS: Temperature 97.3, blood pressure 137/66, pulse 73, respirations 18, O2 sat 94.7. GENERAL: Slept about 7 hours last night. The patient's appetite is fair. The patient is not exhibiting any overt psychotic symptoms or no major behavior problems. CURRENT MEDICATIONS: Include trazodone 25 mg 3 times a day and 50 mg at night p.r.n., olanzapine 2.5 mg q.2 hours p.r.n., Xanax 0.25 mg at bedtime p.r.n. LABORATORY DATA: The patient's lab reviewed. The patient's hemoglobin A1c was 6.4. The patient's triglyceride is 197. Cholesterol 226, LDL 138. ASSESSMENT: 1. Major neurocognitive disorder, Alzheimer's, vascular with the delusions and depression and behavioral disturbances. 2. Anxiety disorder, unspecified. PLAN: Continue with the treatment. LENGTH OF STAY: Seven to ten days. PARTH/LAKISHA/SHAW DR: Jalil TID: [id number]
[2022-01-26] MEDS: traZODone 50 MG TABLET. PO PRN (22:38)
[2022-01-27] MEDS: traZODone 50 MG TABLET. PO PRN ×3 (00:36→23:54)
[2022-01-27 06:12] VITALS: BP 151/69
[2022-01-27] MEDS: PANTOPRAZOLE 40 MG TABLET. PO SCH (08:32)
[2022-01-27] MEDS: MIRABEGRON 25 MG TAB.ER.24H PO SCH (08:32)
[2022-01-27] MEDS: ASPIRIN ENTERIC COATED 81 MG TABLET.DR. PO SCH (08:32)
[2022-01-27] MEDS: CETIRIZINE HCL 10 MG TABLET PO SCH (08:33)
[2022-01-27] MEDS: METOPROLOL TART IMMED RELEASE 25 MG TABLET. PO SCH ×2 (08:33→20:54)
[2022-01-27] MEDS: LISINOPRIL 10 MG TABLET PO SCH (08:33)
[2022-01-27] MEDS: traZODone 50 MG TABLET. PO SCH ×3 (08:33→17:00)
[2022-01-27 16:02] VITALS: BP 126/72
[2022-01-27] MEDS: ATORVASTATIN CALCIUM 20 MG TABLET PO SCH (20:47)
--- NOTE | 2022-01-27 21:37 | PN ---
DATE: 01/27/2022 SUBJECTIVE: The patient is still confused, disorganized with thinking. Also, incoherent speech. His appetite has improved. OBSERVATION: VITAL SIGNS: Temperature 97.8, blood pressure 151/69, pulse 76, respirations 14, O2 sat 94%. GENERAL: Slept about 3 hours last night. LABORATORY DATA: The patient's lab reviewed. CURRENT MEDICATIONS: Include trazodone 25 mg 3 times a day and 50 mg at night, olanzapine 2.5 mg q. 2 hours p.r.n., and Xanax 0.25 mg at bedtime. ASSESSMENT: 1. Major neurocognitive disorder, Alzheimer's, vascular with delusions, depression and behavioral disturbances. 2. Anxiety disorder, unspecified. PLAN: To continue with treatment. LENGTH OF STAY: 7-[address]: Jalil TID: [id number]
[2022-01-28 06:30] VITALS: BP 155/72
[2022-01-28] MEDS: ASPIRIN ENTERIC COATED 81 MG TABLET.DR. PO SCH (09:28)
[2022-01-28] MEDS: PANTOPRAZOLE 40 MG TABLET. PO SCH (09:28)
[2022-01-28] MEDS: MIRABEGRON 25 MG TAB.ER.24H PO SCH (09:28)
[2022-01-28] MEDS: METOPROLOL TART IMMED RELEASE 25 MG TABLET. PO SCH ×2 (09:29→20:16)
[2022-01-28] MEDS: LISINOPRIL 10 MG TABLET PO SCH (09:29)
[2022-01-28] MEDS: CETIRIZINE HCL 10 MG TABLET PO SCH (09:29)
[2022-01-28] MEDS: traZODone 50 MG TABLET. PO SCH ×3 (09:29→17:00)
[2022-01-28 15:52] VITALS: BP 132/79
--- NOTE | 2022-01-28 19:32 | PN ---
DATE: 01/28/2022 SUBJECTIVE: The patient was seen today, met with the staff, chart reviewed. I am covering for Dr. Hernandez. Staff reports that he is still lethargic, disorganized, flat affect, also combative at times. OBSERVATION: VITAL SIGNS: Temperature 98.2, blood pressure 155/72, pulse 63, respirations 18, O2 sat 93%. GENERAL: Slept about 6 hours last night. His appetite fair. LABORATORY DATA: The patient's lab reviewed. CURRENT MEDICATIONS: Include trazodone 25 mg 3 times a day and 50 mg at night, olanzapine 2.5 mg q.2 hours p.r.n., and Xanax 0.25 mg at bedtime. ASSESSMENT: 1. Major neurocognitive disorder, Alzheimer's, vascular with delusions, depression and behavioral disturbances. 2. Anxiety disorder, unspecified. PLAN: To continue treatment. LENGTH OF STAY: Seven to [address] SAI [address]: Jalil TID: [id number]
[2022-01-28] MEDS: ATORVASTATIN CALCIUM 20 MG TABLET PO SCH (20:16)
[2022-01-28] MEDS: traZODone 50 MG TABLET. PO PRN (20:18)
[2022-01-29 06:42] VITALS: BP 175/92
[2022-01-29] MEDS: MIRABEGRON 25 MG TAB.ER.24H PO SCH (08:19)
[2022-01-29] MEDS: LISINOPRIL 10 MG TABLET PO SCH (08:20)
[2022-01-29] MEDS: METOPROLOL TART IMMED RELEASE 25 MG TABLET. PO SCH ×3 (08:20→23:35)
[2022-01-29] MEDS: ASPIRIN ENTERIC COATED 81 MG TABLET.DR. PO SCH (08:20)
[2022-01-29] MEDS: CETIRIZINE HCL 10 MG TABLET PO SCH (08:21)
[2022-01-29] MEDS: traZODone 50 MG TABLET. PO SCH ×3 (08:21→17:08)
[2022-01-29] MEDS: PANTOPRAZOLE 40 MG TABLET. PO SCH (08:21)
[2022-01-29 15:54] VITALS: BP 115/53
[2022-01-29] MEDS: traZODone 50 MG TABLET. PO PRN ×2 (20:04→23:34)
[2022-01-29] MEDS: ATORVASTATIN CALCIUM 20 MG TABLET PO SCH (20:04)
--- NOTE | 2022-01-29 22:07 | PDOC ---
Exam Note: Bernard Note: Please also refer to the separate dictated note~for this date of service dictated separately.~Patient seen individually. Discussed the patient with Nursing staff reviewed the chart.~Reviewed interim history and current functioning. Reviewed vital signs,~Labs/ Radiology~and current medications noted below. Continue current treatment with the changes noted in the dictated addendum note Assessment: Vital Signs/I&O: Vital Signs Date Time Temp Pulse Resp B/P (MAP) Pulse Ox O2 Delivery O2 Flow Rate FiO2 01/29/22 20:18 85 97/47 01/29/22 15:54 97.1 17 95 01/26/22 16:06 Room Air I & O 01/28/22 01/28/22 01/29/22 15:00 23:00 07:00 Intake Total 360 ml 50 ml Balance 360 ml 50 ml Current Medications: Meds: Current Medications Medications (Trade) Dose Ordered Sig/Leoncio Route PRN Reason Start Time Stop Time Status Last Admin Dose Admin Alprazolam (Xanax) 0.25 mg PRN QHS PRN PO ANXIETY / AGITATION 01/22/22 16:30 01/24/22 19:35 Aspirin (Aspirin Enteric Coated) 81 mg DAILY PO 01/23/22 09:00 01/29/22 08:20 Donepezil HCl (Aricept) 10 mg QHS PO 01/22/22 21:00 01/24/22 16:39 DC 01/23/22 21:36 Haloperidol (Haldol) 0.5 mg PRN TID PRN PO AGITATION 01/22/22 16:30 01/22/22 16:57 DC 01/22/22 16:29 Memantine (Namenda) 10 mg BID PO 01/22/22 21:00 01/24/22 16:38 DC 01/24/22 09:00 Metoprolol Tartrate (Lopressor) 25 mg BID PO 01/22/22 21:00 01/29/22 08:20 Lisinopril (Prinivil) 10 mg DAILY PO 01/23/22 09:00 01/29/22 08:20 Cetirizine HCl (ZyrTEC) 10 mg DAILY PO 01/23/22 09:00 01/29/22 08:21 Mirabegron (Myrbetriq) 50 mg DAILY PO 01/23/22 09:00 01/29/22 08:19 Pantoprazole Sodium (Protonix) 40 mg DAILYAC PO 01/23/22 07:30 01/29/22 08:21 Atorvastatin Calcium (Lipitor) 80 mg QHS PO 01/22/22 21:00 01/29/22 20:04 Acetaminophen (Tylenol) 650 mg PRN Q6HRS PRN PO MILD PAIN / TEMP > 100.3'F 01/22/22 16:45 Multi-Ingredient Ointment (Analgesic Bow) 1 [place] PRN QID PRN TP MUSCLE PAIN 01/22/22 16:45 Al Hydroxide/Mg Hydroxide (Mylanta Plus Xs) 15 ml PRN AFTMEALHC PRN PO DYSPEPSIA 01/22/22 16:45 Magnesium Hydroxide (Milk Of Magnesia) 2,400 mg PRN QHS PRN PO CONSTIPATION 01/22/22 16:45 Olanzapine (ZyPREXA) 2.5 mg PRN Q2HR PRN PO AGITATION 01/22/22 17:00 01/22/22 17:06 DC Olanzapine (ZyPREXA ZYDIS) 2.5 mg PRN Q2HRS PRN PO PSYCHOSIS 01/22/22 17:15 01/25/22 11:10 Trazodone HCl (Desyrel) 50 mg PRN QHS PRN PO insomnia 01/22/22 21:45 01/28/22 20:18 Trazodone HCl (Desyrel) 25 mg DAILY PO 01/23/22 15:30 01/23/22 16:22 DC 01/23/22 15:30 Trazodone HCl (Desyrel) 25 mg 0900,1300,1700 PO 01/23/22 17:00 01/29/22 17:08 Sodium Chloride 1,000 ml @ 1,000 mls/hr 1X ONCE IV 01/23/22 17:15 01/23/22 18:14 DC 01/23/22 17:15 I have reviewed the current psychotropics carefully including drug interactions. Risk benefit ratio favors no change other than as noted in my dictated progress note. Diagnosis: Problems: (1) Impulse control disorder, unspecified (2) Anxiety disorder, unspecified (3) Dementia, vascular, with depression (4) Dementia, vascular, with delusions (5) Dementia in Alzheimer's disease with depression (6) Dementia in Alzheimer's disease with delusions (7) Dementia of the Alzheimer's type with early onset with behavioral disturbance (8) Major neurocognitive disorder SANCHEZ JEAN MD Jan 29, 2022 22:07
[2022-01-30] MEDS: traZODone 50 MG TABLET. PO PRN (00:48)
[2022-01-30 06:15] LABS: BASO # 0.1 x10^3/uL (0.0-0.2); BASO % 1 % (0-3); EOS # 0.1 x10^3/uL (0.0-0.7); EOS % 3 % (0-3); LYMPH # 1.2 x10^3/uL (1.0-4.8); LYMPH % 23 % (24-48); MEAN CORPUSCULAR HEMOGLOBIN 29 pg (25-35); MEAN CORPUSCULAR HGB CONC 33 g/dL (31-37); MEAN CORPUSCULAR VOLUME 90 fL (79-100); MONO # 0.5 x10^3/uL (0.0-1.1); MONO % 8 % (0-9); NEUT # 3.5 x10^3uL (1.8-7.7); NEUT % 65 % (31-73); PLATELET COUNT 130 x10^3/uL (140-400); RED BLOOD COUNT 4.81 x10^6/uL (4.30-5.70); RED CELL DISTRIBUTION WIDTH 13.7 % (11.5-14.5); WHITE BLOOD COUNT 5.4 x10^3/uL (4.0-11.0)
[2022-01-30 06:38] VITALS: BP 147/72
[2022-01-30 06:39] LABS: ALBUMIN 3.1 g/dL (3.4-5.0); ALBUMIN/GLOBULIN RATIO 1.1 (1.0-1.7); CREATININE 1.2 mg/dL (0.7-1.3); GFR 58.7; POTASSIUM 4.2 mmol/L (3.5-5.1); TOTAL BILIRUBIN 0.5 mg/dL (0.2-1.0)
[2022-01-30] MEDS: PANTOPRAZOLE 40 MG TABLET. PO SCH (07:30)
[2022-01-30] MEDS: LISINOPRIL 10 MG TABLET PO SCH (08:08)
[2022-01-30] MEDS: METOPROLOL TART IMMED RELEASE 25 MG TABLET. PO SCH ×2 (08:08→20:02)
[2022-01-30] MEDS: MIRABEGRON 25 MG TAB.ER.24H PO SCH (08:09)
[2022-01-30] MEDS: CETIRIZINE HCL 10 MG TABLET PO SCH (08:09)
[2022-01-30] MEDS: traZODone 50 MG TABLET. PO SCH ×3 (08:09→17:00)
[2022-01-30] MEDS: ASPIRIN ENTERIC COATED 81 MG TABLET.DR. PO SCH (08:09)
[2022-01-30 15:54] VITALS: BP 106/58
[2022-01-30] MEDS: DIVALPROEX 125 MG CAP.SPRINK PO SCH (17:00)
[2022-01-30] MEDS: ATORVASTATIN CALCIUM 20 MG TABLET PO SCH (20:00)
[2022-01-30] MEDS: MIRTAZAPINE 7.5 MG TABLET. PO SCH (20:00)
--- NOTE | 2022-01-30 21:26 | PDOC ---
Exam Note: Bernard Note: Please also refer to the separate dictated note~for this date of service dictated separately.~Patient seen individually. Discussed the patient with Nursing staff reviewed the chart.~Reviewed interim history and current functioning. Reviewed vital signs,~Labs/ Radiology~and current medications noted below. Continue current treatment with the changes noted in the dictated addendum note Assessment: Vital Signs/I&O: Vital Signs Date Time Temp Pulse Resp B/P (MAP) Pulse Ox O2 Delivery O2 Flow Rate FiO2 01/30/22 20:02 62 103/63 01/30/22 15:54 97.3 20 94 0.0 01/26/22 16:06 Room Air I & O 01/29/22 01/29/22 01/30/22 15:00 23:00 07:00 Intake Total 320 ml 300 ml Balance 320 ml 300 ml Labs: Laboratory Tests Test 01/30/22 06:05 01/30/22 06:30 White Blood Count 5.4 x10^3/uL (4.0-11.0) Red Blood Count 4.81 x10^6/uL (4.30-5.70) Hemoglobin 14.0 g/dL (13.0-17.5) Hematocrit 43.0 % (39.0-53.0) Mean Corpuscular Volume 90 fL (79-100) Mean Corpuscular Hemoglobin 29 pg (25-35) Mean Corpuscular Hemoglobin Concent 33 g/dL (31-37) Red Cell Distribution Width 13.7 % (11.5-14.5) Platelet Count 130 x10^3/uL (140-400) L Neutrophils (%) (Auto) 65 % (31-73) Lymphocytes (%) (Auto) 23 % (24-48) L Monocytes (%) (Auto) 8 % (0-9) Eosinophils (%) (Auto) 3 % (0-3) Basophils (%) (Auto) 1 % (0-3) Neutrophils # (Auto) 3.5 x10^3uL (1.8-7.7) Lymphocytes # (Auto) 1.2 x10^3/uL (1.0-4.8) Monocytes # (Auto) 0.5 x10^3/uL (0.0-1.1) Eosinophils # (Auto) 0.1 x10^3/uL (0.0-0.7) Basophils # (Auto) 0.1 x10^3/uL (0.0-0.2) Sodium Level 147 mmol/L (136-145) H Potassium Level 4.2 mmol/L (3.5-5.1) Chloride Level 109 mmol/L (98-107) H Carbon Dioxide Level 31 mmol/L (21-32) Anion Gap 7 (6-14) Blood Urea Nitrogen 27 mg/dL (8-26) H Creatinine 1.2 mg/dL (0.7-1.3) Estimated GFR (Cockcroft-Gault) 58.7 BUN/Creatinine Ratio 23 (6-20) H Glucose Level 112 mg/dL (70-99) H Calcium Level 9.0 mg/dL (8.5-10.1) Total Bilirubin 0.5 mg/dL (0.2-1.0) Aspartate Amino Transferase (AST) 31 U/L (15-37) Alanine Aminotransferase (ALT) 26 U/L (16-63) Alkaline Phosphatase 60 U/L (46-116) Total Protein 6.0 g/dL (6.4-8.2) L Albumin 3.1 g/dL (3.4-5.0) L Albumin/Globulin Ratio 1.1 (1.0-1.7) POC SARS CoV-2 Antigen Negative (NEGATIVE) Current Medications: Meds: Laboratory Tests Test 01/30/22 06:05 01/30/22 06:30 White Blood Count 5.4 x10^3/uL Red Blood Count 4.81 x10^6/uL Hemoglobin 14.0 g/dL Hematocrit 43.0 % Mean Corpuscular Volume 90 fL Mean Corpuscular Hemoglobin 29 pg Mean Corpuscular Hemoglobin Concent 33 g/dL Red Cell Distribution Width 13.7 % Platelet Count 130 x10^3/uL Neutrophils (%) (Auto) 65 % Lymphocytes (%) (Auto) 23 % Monocytes (%) (Auto) 8 % Eosinophils (%) (Auto) 3 % Basophils (%) (Auto) 1 % Neutrophils # (Auto) 3.5 x10^3uL Lymphocytes # (Auto) 1.2 x10^3/uL Monocytes # (Auto) 0.5 x10^3/uL Eosinophils # (Auto) 0.1 x10^3/uL Basophils # (Auto) 0.1 x10^3/uL Sodium Level 147 mmol/L Potassium Level 4.2 mmol/L Chloride Level 109 mmol/L Carbon Dioxide Level 31 mmol/L Anion Gap 7 Blood Urea Nitrogen 27 mg/dL Creatinine 1.2 mg/dL Estimated GFR (Cockcroft-Gault) 58.7 BUN/Creatinine Ratio 23 Glucose Level 112 mg/dL Calcium Level 9.0 mg/dL Total Bilirubin 0.5 mg/dL Aspartate Amino Transf (AST/SGOT) 31 U/L Alanine Aminotransferase (ALT/SGPT) 26 U/L Alkaline Phosphatase 60 U/L Total Protein 6.0 g/dL Albumin 3.1 g/dL Albumin/Globulin Ratio 1.1 POC SARS CoV-2 Antigen Negative Current Medications Medications (Trade) Dose Ordered Sig/Leoncio Route PRN Reason Start Time Stop Time Status Last Admin Dose Admin Alprazolam (Xanax) 0.25 mg PRN QHS PRN PO ANXIETY / AGITATION 01/22/22 16:30 01/24/22 19:35 Aspirin (Aspirin Enteric Coated) 81 mg DAILY PO 01/23/22 09:00 01/30/22 08:09 Donepezil HCl (Aricept) 10 mg QHS PO 01/22/22 21:00 01/24/22 16:39 DC 01/23/22 21:36 Haloperidol (Haldol) 0.5 mg PRN TID PRN PO AGITATION 01/22/22 16:30 01/22/22 16:57 DC 01/22/22 16:29 Memantine (Namenda) 10 mg BID PO 01/22/22 21:00 01/24/22 16:38 DC 01/24/22 09:00 Metoprolol Tartrate (Lopressor) 25 mg BID PO 01/22/22 21:00 01/30/22 08:08 Lisinopril (Prinivil) 10 mg DAILY PO 01/23/22 09:00 01/30/22 08:08 Cetirizine HCl (ZyrTEC) 10 mg DAILY PO 01/23/22 09:00 01/30/22 08:09 Mirabegron (Myrbetriq) 50 mg DAILY PO 01/23/22 09:00 01/30/22 08:09 Pantoprazole Sodium (Protonix) 40 mg DAILYAC PO 01/23/22 07:30 01/30/22 07:30 Atorvastatin Calcium (Lipitor) 80 mg QHS PO 01/22/22 21:00 01/30/22 20:00 Acetaminophen (Tylenol) 650 mg PRN Q6HRS PRN PO MILD PAIN / TEMP > 100.3'F 01/22/22 16:45 Multi-Ingredient Ointment (Analgesic [place]) 1 dalton PRN QID PRN TP MUSCLE PAIN 01/22/22 16:45 Al Hydroxide/Mg Hydroxide (Mylanta Plus Xs) 15 ml PRN AFTMEALHC PRN PO DYSPEPSIA 01/22/22 16:45 Magnesium Hydroxide (Milk Of Magnesia) 2,400 mg PRN QHS PRN PO CONSTIPATION 01/22/22 16:45 Olanzapine (ZyPREXA) 2.5 mg PRN Q2HR PRN PO AGITATION 01/22/22 17:00 01/22/22 17:06 DC Olanzapine (ZyPREXA ZYDIS) 2.5 mg PRN Q2HRS PRN PO PSYCHOSIS 01/22/22 17:15 01/25/22 11:10 Trazodone HCl (Desyrel) 50 mg PRN QHS PRN PO insomnia 01/22/22 21:45 01/30/22 00:48 Trazodone HCl (Desyrel) 25 mg DAILY PO 01/23/22 15:30 01/23/22 16:22 DC 01/23/22 15:30 Trazodone HCl (Desyrel) 25 mg 0900,1300,1700 PO 01/23/22 17:00 01/30/22 17:00 Sodium Chloride 1,000 ml @ 1,000 mls/hr 1X ONCE IV 01/23/22 17:15 01/23/22 18:14 DC 01/23/22 17:15 Mirtazapine (Remeron) 7.5 mg QHS PO 01/30/22 21:00 01/30/22 20:00 Divalproex Sodium (Depakote Sprinkles) 125 mg 0900,1700 PO 01/30/22 17:00 01/30/22 17:00 Current Medications Medications (Trade) Dose Ordered Sig/Leoncio Route PRN Reason Start Time Stop Time Status Last Admin Dose Admin Mirtazapine (Remeron) 7.5 mg QHS PO 01/30/22 21:00 01/30/22 20:00 Divalproex Sodium (Depakote Sprinkles) 125 mg 0900,1700 PO 01/30/22 17:00 01/30/22 17:00 I have reviewed the current psychotropics carefully including drug interactions. Risk benefit ratio favors no change other than as noted in my dictated progress note. Diagnosis: Problems: (1) Impulse control disorder, unspecified (2) Anxiety disorder, unspecified (3) Dementia, vascular, with depression (4) Dementia, vascular, with delusions (5) Dementia in Alzheimer's disease with depression (6) Dementia in Alzheimer's disease with delusions (7) Dementia of the Alzheimer's type with early onset with behavioral disturbance (8) Major neurocognitive disorder SANCHEZ JEAN MD Jan 30, 2022 21:26
[2022-01-31 06:11] VITALS: BP 116/59
[2022-01-31] MEDS: DIVALPROEX 125 MG CAP.SPRINK PO SCH ×2 (08:13→17:00)
[2022-01-31] MEDS: traZODone 50 MG TABLET. PO SCH ×3 (08:13→18:13)
[2022-01-31] MEDS: LISINOPRIL 10 MG TABLET PO SCH (08:13)
[2022-01-31] MEDS: PANTOPRAZOLE 40 MG TABLET. PO SCH (08:13)
[2022-01-31] MEDS: MIRABEGRON 25 MG TAB.ER.24H PO SCH (08:14)
[2022-01-31] MEDS: METOPROLOL TART IMMED RELEASE 25 MG TABLET. PO SCH ×2 (08:14→20:12)
[2022-01-31] MEDS: ASPIRIN ENTERIC COATED 81 MG TABLET.DR. PO SCH (08:14)
[2022-01-31] MEDS: CETIRIZINE HCL 10 MG TABLET PO SCH (08:14)
--- NOTE | 2022-01-31 08:38 | PDOC ---
Exam Note: Bernard Note: This note is a late entry for 01/29/2022 covers elements not covered in my initial note. Subjective: The patient was seen individually on 01/29/2022, discussed and reviewed the chart with Evelyne MONTALVO. The patient slept 4-1/2 hours previous night. His afternoon trazodone was held due to his sedation but he was combative in the evening with changing of his briefs. Rest of the day he did better. He remained confused. I met with him in his room in the evening. Review of Systems: Ambulation impaired, in wheelchair. No CV, , pulmonary, eye, ENT system symptoms on review. Reliability poor. Mental Status Exam: The patient is oriented to himself. Insight and judgment, recent and remote memory, attention and concentration, fund of knowledge is poor consistent with his diagnoses. Laboratory Data: Reviewed. Impression: Major neurocognitive disorder, early Alzheimer, vascular with delusion, depression, behavioral disturbance. Anxiety disorder unspecified. Impulse control disorder unspecified. Plan: Maintain psychotropics unchanged. Assessment: Vital Signs/I&O: Vital Signs Date Time Temp Pulse Resp B/P (MAP) Pulse Ox O2 Delivery O2 Flow Rate FiO2 01/31/22 08:14 60 116/59 01/31/22 06:11 97.1 18 95 01/30/22 15:54 0.0 01/26/22 16:06 Room Air I & O 01/30/22 01/30/22 01/31/22 15:00 23:00 07:00 Intake Total 720 ml 360 ml Balance 720 ml 360 ml Current Medications: Meds: Current Medications Medications (Trade) Dose Ordered Sig/Leoncio Route PRN Reason Start Time Stop Time Status Last Admin Dose Admin Mirtazapine (Remeron) 7.5 mg QHS PO 01/30/22 21:00 01/30/22 20:00 Divalproex Sodium (Depakote Sprinkles) 125 mg 0900,1700 PO 01/30/22 17:00 01/31/22 08:13 I have reviewed the current psychotropics carefully including drug interactions. Risk benefit ratio favors no change other than as noted in my dictated progress note. Diagnosis: Problems: (1) Impulse control disorder, unspecified (2) Anxiety disorder, unspecified (3) Dementia, vascular, with depression (4) Dementia, vascular, with delusions (5) Dementia in Alzheimer's disease with depression (6) Dementia in Alzheimer's disease with delusions (7) Dementia of the Alzheimer's type with early onset with behavioral disturbance (8) Major neurocognitive disorder SANCHEZ JEAN MD Jan 31, 2022 08:38
--- NOTE | 2022-01-31 08:57 | PDOC ---
Exam Note: Bernard Note: This note is a late entry for 01/30/2022 covers elements not covered in my initial note. Subjective: The patient was seen individually on 01/30/2022, discussed and reviewed the chart with Evelyne MONTALVO. The patient slept 3 hours previous night. He remains confused, restless, anxious, constantly moving, agitated, resistive to cares. He did have a mild fall. No injuries. He did not hit his head. He was aggressive, raised his fist towards nursing staff and they were assisting him with ADLs. Received trazodone x2 last night. I met with him in the dining room. He was confused, unable to select his foods to eat, would not accept assistance. Review of Systems: Ambulation impaired, in wheelchair. No CV, , pulmonary, eye, ENT system symptoms on review. Reliability poor. Mental Status Exam: The patient is oriented to himself. Insight and judgment, recent and remote memory, attention and concentration, fund of knowledge is poor consistent with his diagnoses. Laboratory Data: Reviewed. Impression: Major neurocognitive disorder, early Alzheimer, vascular with delusion, depression, behavioral disturbance. Anxiety disorder unspecified. Impulse control disorder unspecified. Plan: Start Remeron 7.5 mg h.s. for his marked insomnia since he slept 3 hours previous night. Start Depakote Sprinkle 125 mg 9 a.m. and 5 p.m. for his behavioral dyscontrol. Check CBC, CMP, valproic acid level in 3 days. Rest unchanged for now. Assessment: Vital Signs/I&O: Vital Signs Date Time Temp Pulse Resp B/P (MAP) Pulse Ox O2 Delivery O2 Flow Rate FiO2 01/31/22 08:14 60 116/59 01/31/22 06:11 97.1 18 95 01/30/22 15:54 0.0 01/26/22 16:06 Room Air I & O 01/30/22 01/30/22 01/31/22 15:00 23:00 07:00 Intake Total 720 ml 360 ml Balance 720 ml 360 ml Current Medications: Meds: Current Medications Medications (Trade) Dose Ordered Sig/Leoncio Route PRN Reason Start Time Stop Time Status Last Admin Dose Admin Mirtazapine (Remeron) 7.5 mg QHS PO 01/30/22 21:00 01/30/22 20:00 Divalproex Sodium (Depakote Sprinkles) 125 mg 0900,1700 PO 01/30/22 17:00 01/31/22 08:13 I have reviewed the current psychotropics carefully including drug interactions. Risk benefit ratio favors no change other than as noted in my dictated progress note. Diagnosis: Problems: (1) Impulse control disorder, unspecified (2) Anxiety disorder, unspecified (3) Dementia, vascular, with depression (4) Dementia, vascular, with delusions (5) Dementia in Alzheimer's disease with depression (6) Dementia in Alzheimer's disease with delusions (7) Dementia of the Alzheimer's type with early onset with behavioral disturbance (8) Major neurocognitive disorder SANCHEZ JEAN MD Jan 31, 2022 08:57
[2022-01-31 19:00] VITALS: BP 136/68
[2022-01-31] MEDS: ATORVASTATIN CALCIUM 20 MG TABLET PO SCH (20:11)
[2022-01-31] MEDS: MIRTAZAPINE 7.5 MG TABLET. PO SCH (20:11)
[2022-01-31] MEDS: traZODone 50 MG TABLET. PO PRN (21:09)
--- NOTE | 2022-01-31 21:13 | PDOC ---
Exam Note: Bernard Note: Please also refer to the separate dictated note~for this date of service dictated separately.~Patient seen individually. Discussed the patient with Nursing staff reviewed the chart.~Reviewed interim history and current functioning. Reviewed vital signs,~Labs/ Radiology~and current medications noted below. Continue current treatment with the changes noted in the dictated addendum note Assessment: Vital Signs/I&O: Vital Signs Date Time Temp Pulse Resp B/P (MAP) Pulse Ox O2 Delivery O2 Flow Rate FiO2 01/31/22 20:12 94 136/68 01/31/22 06:11 97.1 18 95 01/30/22 15:54 0.0 01/26/22 16:06 Room Air I & O 01/30/22 01/30/22 01/31/22 14:59 22:59 06:59 Intake Total 720 ml 360 ml Balance 720 ml 360 ml Current Medications: Meds: Current Medications Medications (Trade) Dose Ordered Sig/Leoncio Route PRN Reason Start Time Stop Time Status Last Admin Dose Admin Alprazolam (Xanax) 0.25 mg PRN QHS PRN PO ANXIETY / AGITATION 01/22/22 16:30 01/24/22 19:35 Aspirin (Aspirin Enteric Coated) 81 mg DAILY PO 01/23/22 09:00 01/31/22 08:14 Donepezil HCl (Aricept) 10 mg QHS PO 01/22/22 21:00 01/24/22 16:39 DC 01/23/22 21:36 Haloperidol (Haldol) 0.5 mg PRN TID PRN PO AGITATION 01/22/22 16:30 01/22/22 16:57 DC 01/22/22 16:29 Memantine (Namenda) 10 mg BID PO 01/22/22 21:00 01/24/22 16:38 DC 01/24/22 09:00 Metoprolol Tartrate (Lopressor) 25 mg BID PO 01/22/22 21:00 01/31/22 20:12 Lisinopril (Prinivil) 10 mg DAILY PO 01/23/22 09:00 01/31/22 08:13 Cetirizine HCl (ZyrTEC) 10 mg DAILY PO 01/23/22 09:00 01/31/22 08:14 Mirabegron (Myrbetriq) 50 mg DAILY PO 01/23/22 09:00 01/31/22 08:14 Pantoprazole Sodium (Protonix) 40 mg DAILYAC PO 01/23/22 07:30 01/31/22 08:13 Atorvastatin Calcium (Lipitor) 80 mg QHS PO 01/22/22 21:00 01/31/22 20:11 Acetaminophen (Tylenol) 650 mg PRN Q6HRS PRN PO MILD PAIN / TEMP > 100.3'F 01/22/22 16:45 Multi-Ingredient Ointment (Analgesic [place]) 1 [place] PRN QID PRN TP MUSCLE PAIN 01/22/22 16:45 Al Hydroxide/Mg Hydroxide (Mylanta Plus Xs) 15 ml PRN AFTMEALHC PRN PO DYSPEPSIA 01/22/22 16:45 Magnesium Hydroxide (Milk Of Magnesia) 2,400 mg PRN QHS PRN PO CONSTIPATION 01/22/22 16:45 Olanzapine (ZyPREXA) 2.5 mg PRN Q2HR PRN PO AGITATION 01/22/22 17:00 01/22/22 17:06 DC Olanzapine (ZyPREXA ZYDIS) 2.5 mg PRN Q2HRS PRN PO PSYCHOSIS 01/22/22 17:15 01/25/22 11:10 Trazodone HCl (Desyrel) 50 mg PRN QHS PRN PO insomnia 01/22/22 21:45 01/31/22 21:09 Trazodone HCl (Desyrel) 25 mg DAILY PO 01/23/22 15:30 01/23/22 16:22 DC 01/23/22 15:30 Trazodone HCl (Desyrel) 25 mg 0900,1300,1700 PO 01/23/22 17:00 01/31/22 18:13 Sodium Chloride 1,000 ml @ 1,000 mls/hr 1X ONCE IV 01/23/22 17:15 01/23/22 18:14 DC 01/23/22 17:15 Mirtazapine (Remeron) 7.5 mg QHS PO 01/30/22 21:00 01/31/22 20:11 Divalproex Sodium (Depakote Sprinkles) 125 mg 0900,1700 PO 01/30/22 17:00 01/31/22 17:00 I have reviewed the current psychotropics carefully including drug interactions. Risk benefit ratio favors no change other than as noted in my dictated progress note. Diagnosis: Problems: (1) Impulse control disorder, unspecified (2) Anxiety disorder, unspecified (3) Dementia, vascular, with depression (4) Dementia, vascular, with delusions (5) Dementia in Alzheimer's disease with depression (6) Dementia in Alzheimer's disease with delusions (7) Dementia of the Alzheimer's type with early onset with behavioral disturbance (8) Major neurocognitive disorder SANCHEZ JEAN MD Jan 31, 2022 21:13
[2022-02-01 06:11] VITALS: BP 134/67
[2022-02-01] MEDS: METOPROLOL TART IMMED RELEASE 25 MG TABLET. PO SCH ×2 (07:48→20:50)
[2022-02-01] MEDS: ASPIRIN ENTERIC COATED 81 MG TABLET.DR. PO SCH (07:48)
[2022-02-01] MEDS: DIVALPROEX 125 MG CAP.SPRINK PO SCH ×2 (07:48→16:20)
[2022-02-01] MEDS: PANTOPRAZOLE 40 MG TABLET. PO SCH (07:48)
[2022-02-01] MEDS: CETIRIZINE HCL 10 MG TABLET PO SCH (07:49)
[2022-02-01] MEDS: MIRABEGRON 25 MG TAB.ER.24H PO SCH (07:49)
[2022-02-01] MEDS: traZODone 50 MG TABLET. PO SCH ×3 (07:49→16:20)
[2022-02-01] MEDS: LISINOPRIL 10 MG TABLET PO SCH (07:49)
[2022-02-01 16:41] VITALS: BP 105/71
[2022-02-01] MEDS: MIRTAZAPINE 7.5 MG TABLET. PO SCH (20:49)
[2022-02-01] MEDS: traZODone 50 MG TABLET. PO PRN (20:49)
[2022-02-01] MEDS: ATORVASTATIN CALCIUM 20 MG TABLET PO SCH (20:50)
[2022-02-01] MEDS: ALPRAZolam 0.25 MG TABLET PO PRN (20:52)
--- NOTE | 2022-02-01 21:37 | PDOC ---
Exam Note: Bernard Note: Please also refer to the separate dictated note~for this date of service dictated separately.~Patient seen individually. Discussed the patient with Nursing staff reviewed the chart.~Reviewed interim history and current functioning. Reviewed vital signs,~Labs/ Radiology~and current medications noted below. Continue current treatment with the changes noted in the dictated addendum note Assessment: Vital Signs/I&O: Vital Signs Date Time Temp Pulse Resp B/P (MAP) Pulse Ox O2 Delivery O2 Flow Rate FiO2 02/01/22 20:50 79 105/71 02/01/22 16:41 97.6 16 95 02/01/22 06:11 Room Air 01/30/22 15:54 0.0 I & O 01/31/22 01/31/22 02/01/22 15:00 23:00 07:00 Intake Total 480 ml 480 ml Balance 480 ml 480 ml Current Medications: Meds: Current Medications Medications (Trade) Dose Ordered Sig/Leoncio Route PRN Reason Start Time Stop Time Status Last Admin Dose Admin Alprazolam (Xanax) 0.25 mg PRN QHS PRN PO ANXIETY / AGITATION 01/22/22 16:30 02/01/22 20:52 Aspirin (Aspirin Enteric Coated) 81 mg DAILY PO 01/23/22 09:00 02/01/22 07:48 Donepezil HCl (Aricept) 10 mg QHS PO 01/22/22 21:00 01/24/22 16:39 DC 01/23/22 21:36 Haloperidol (Haldol) 0.5 mg PRN TID PRN PO AGITATION 01/22/22 16:30 01/22/22 16:57 DC 01/22/22 16:29 Memantine (Namenda) 10 mg BID PO 01/22/22 21:00 01/24/22 16:38 DC 01/24/22 09:00 Metoprolol Tartrate (Lopressor) 25 mg BID PO 01/22/22 21:00 02/01/22 20:50 Lisinopril (Prinivil) 10 mg DAILY PO 01/23/22 09:00 02/01/22 07:49 Cetirizine HCl (ZyrTEC) 10 mg DAILY PO 01/23/22 09:00 02/01/22 07:49 Mirabegron (Myrbetriq) 50 mg DAILY PO 01/23/22 09:00 02/01/22 07:49 Pantoprazole Sodium (Protonix) 40 mg DAILYAC PO 01/23/22 07:30 02/01/22 07:48 Atorvastatin Calcium (Lipitor) 80 mg QHS PO 01/22/22 21:00 02/01/22 20:50 Acetaminophen (Tylenol) 650 mg PRN Q6HRS PRN PO MILD PAIN / TEMP > 100.3'F 01/22/22 16:45 Multi-Ingredient Ointment (Analgesic [place]) 1 [place] PRN QID PRN TP MUSCLE PAIN 01/22/22 16:45 Al Hydroxide/Mg Hydroxide (Mylanta Plus Xs) 15 ml PRN AFTMEALHC PRN PO DYSPEPSIA 01/22/22 16:45 Magnesium Hydroxide (Milk Of Magnesia) 2,400 mg PRN QHS PRN PO CONSTIPATION 01/22/22 16:45 Olanzapine (ZyPREXA) 2.5 mg PRN Q2HR PRN PO AGITATION 01/22/22 17:00 01/22/22 17:06 DC Olanzapine (ZyPREXA ZYDIS) 2.5 mg PRN Q2HRS PRN PO PSYCHOSIS 01/22/22 17:15 01/25/22 11:10 Trazodone HCl (Desyrel) 50 mg PRN QHS PRN PO insomnia 01/22/22 21:45 02/01/22 20:49 Trazodone HCl (Desyrel) 25 mg DAILY PO 01/23/22 15:30 01/23/22 16:22 DC 01/23/22 15:30 Trazodone HCl (Desyrel) 25 mg 0900,1300,1700 PO 01/23/22 17:00 02/01/22 16:20 Sodium Chloride 1,000 ml @ 1,000 mls/hr 1X ONCE IV 01/23/22 17:15 01/23/22 18:14 DC 01/23/22 17:15 Mirtazapine (Remeron) 7.5 mg QHS PO 01/30/22 21:00 02/01/22 20:49 Divalproex Sodium (Depakote Sprinkles) 125 mg 0900,1700 PO 01/30/22 17:00 02/01/22 16:20 I have reviewed the current psychotropics carefully including drug interactions. Risk benefit ratio favors no change other than as noted in my dictated progress note. Diagnosis: Problems: (1) Impulse control disorder, unspecified (2) Anxiety disorder, unspecified (3) Dementia, vascular, with depression (4) Dementia, vascular, with delusions (5) Dementia in Alzheimer's disease with depression (6) Dementia in Alzheimer's disease with delusions (7) Dementia of the Alzheimer's type with early onset with behavioral disturbance (8) Major neurocognitive disorder SANCHEZ JEAN MD Feb 01, 2022 21:36
[2022-02-02 06:17] VITALS: BP 128/68
[2022-02-02 06:28] LABS: BASO % 1 % (0-3); EOS # 0.2 x10^3/uL (0.0-0.7); EOS % 5 % (0-3); HEMATOCRIT 38.1 % (39.0-53.0); HEMOGLOBIN 12.4 g/dL (13.0-17.5); LYMPH # 1.4 x10^3/uL (1.0-4.8); LYMPH % 31 % (24-48); MEAN CORPUSCULAR HEMOGLOBIN 29 pg (25-35); MEAN CORPUSCULAR HGB CONC 33 g/dL (31-37); MEAN CORPUSCULAR VOLUME 89 fL (79-100); MONO # 0.5 x10^3/uL (0.0-1.1); MONO % 11 % (0-9); NEUT # 2.3 x10^3uL (1.8-7.7); NEUT % 53 % (31-73); PLATELET COUNT 132 x10^3/uL (140-400); RED BLOOD COUNT 4.27 x10^6/uL (4.30-5.70); RED CELL DISTRIBUTION WIDTH 13.9 % (11.5-14.5); WHITE BLOOD COUNT 4.3 x10^3/uL (4.0-11.0)
[2022-02-02 06:55] LABS: ALBUMIN 2.9 g/dL (3.4-5.0); CALCIUM 8.8 mg/dL (8.5-10.1); CREATININE 1.5 mg/dL (0.7-1.3); GFR 45.4; POTASSIUM 3.9 mmol/L (3.5-5.1); TOTAL BILIRUBIN 0.3 mg/dL (0.2-1.0); TOTAL PROTEIN 5.7 g/dL (6.4-8.2)
[2022-02-02 06:56] LABS: VAL ACID 18 mcg/mL (50-100)
--- NOTE | 2022-02-02 08:01 | PDOC ---
Exam Note: Bernard Note: This note is a late entry for 01/31/2022 covers elements not covered in my initial note. Subjective: The patient was seen individually on 01/31/2022, discussed and reviewed the chart with Evelyne MONTALVO. The patient slept 4-1/2 hours previous night. He remains confused, noted to be all over, fidgeting, gesturing, unsteady gait. He had a fall the day before. Received Zyprexa at 12.50 p.m. He was up and down the hallway in his wheelchair. Nursing staff were singing to him, seemed to calm him down helpless at times, irritable. Review of Systems: Ambulation impaired, in wheelchair. No CV, , pulmonary, eye, ENT system symptoms on review. Reliability poor. Mental Status Exam: The patient is oriented to himself. Insight and judgment, recent and remote memory, attention and concentration, fund of knowledge is poor consistent with his diagnoses. Laboratory Data: Reviewed. Impression: Major neurocognitive disorder, early Alzheimer, vascular with delusion, depression, behavioral disturbance. Anxiety disorder unspecified. Impulse control disorder unspecified. Plan: No change from initial note. Assessment: Vital Signs/I&O: Vital Signs Date Time Temp Pulse Resp B/P (MAP) Pulse Ox O2 Delivery O2 Flow Rate FiO2 02/02/22 06:17 98.5 59 16 128/68 (88) 94 02/01/22 06:11 Room Air 01/30/22 15:54 0.0 I & O 02/01/22 02/01/22 02/02/22 15:00 23:00 07:00 Intake Total 240 ml 360 ml Balance 240 ml 360 ml Labs: Laboratory Tests Test 02/02/22 06:14 White Blood Count 4.3 x10^3/uL (4.0-11.0) Red Blood Count 4.27 x10^6/uL (4.30-5.70) L Hemoglobin 12.4 g/dL (13.0-17.5) L Hematocrit 38.1 % (39.0-53.0) L Mean Corpuscular Volume 89 fL (79-100) Mean Corpuscular Hemoglobin 29 pg (25-35) Mean Corpuscular Hemoglobin Concent 33 g/dL (31-37) Red Cell Distribution Width 13.9 % (11.5-14.5) Platelet Count 132 x10^3/uL (140-400) L Neutrophils (%) (Auto) 53 % (31-73) Lymphocytes (%) (Auto) 31 % (24-48) Monocytes (%) (Auto) 11 % (0-9) H Eosinophils (%) (Auto) 5 % (0-3) H Basophils (%) (Auto) 1 % (0-3) Neutrophils # (Auto) 2.3 x10^3uL (1.8-7.7) Lymphocytes # (Auto) 1.4 x10^3/uL (1.0-4.8) Monocytes # (Auto) 0.5 x10^3/uL (0.0-1.1) Eosinophils # (Auto) 0.2 x10^3/uL (0.0-0.7) Basophils # (Auto) 0.0 x10^3/uL (0.0-0.2) Sodium Level 154 mmol/L (136-145) H Potassium Level 3.9 mmol/L (3.5-5.1) Chloride Level 116 mmol/L (98-107) H Carbon Dioxide Level 33 mmol/L (21-32) H Anion Gap 5 (6-14) L Blood Urea Nitrogen 38 mg/dL (8-26) H Creatinine 1.5 mg/dL (0.7-1.3) H Estimated GFR (Cockcroft-Gault) 45.4 BUN/Creatinine Ratio 25 (6-20) H Glucose Level 101 mg/dL (70-99) H Calcium Level 8.8 mg/dL (8.5-10.1) Total Bilirubin 0.3 mg/dL (0.2-1.0) Aspartate Amino Transferase (AST) 26 U/L (15-37) Alanine Aminotransferase (ALT) 37 U/L (16-63) Alkaline Phosphatase 52 U/L (46-116) Total Protein 5.7 g/dL (6.4-8.2) L Albumin 2.9 g/dL (3.4-5.0) L Albumin/Globulin Ratio 1.0 (1.0-1.7) Valproic Acid Level 18 mcg/mL (50-100) L Valproic Acid Last Dose Date 02/01/22 Valproic Acid Last Dose Time 1700 Current Medications: I have reviewed the current psychotropics carefully including drug interactions. Risk benefit ratio favors no change other than as noted in my dictated progress note. Diagnosis: Problems: (1) Impulse control disorder, unspecified (2) Anxiety disorder, unspecified (3) Dementia, vascular, with depression (4) Dementia, vascular, with delusions (5) Dementia in Alzheimer's disease with depression (6) Dementia in Alzheimer's disease with delusions (7) Dementia of the Alzheimer's type with early onset with behavioral disturbance (8) Major neurocognitive disorder SANCHEZ JEAN MD Feb 02, 2022 08:01
--- NOTE | 2022-02-02 08:49 | PDOC ---
Exam Note: Bernard Note: This note is a late entry for 02/01/2022 covers elements not covered in my initial note. Subjective: The patient was reviewed at treatment team meeting individually in the morning on 02/01/2022 on telehealth rounds with Deana Quintana (social service technician), Armida, activity therapy, and Agnes RN, discussed and reviewed the chart. The patient slept 6-1/2 hours previous night. He takes his medications crushed. He attended one group in the past week. Review of Systems: Ambulation impaired, in wheelchair. No CV, , pulmonary, eye, ENT system symptoms on review. Reliability poor. Mental Status Exam: The patient is oriented to himself. Insight and judgment, recent and remote memory, attention and concentration, fund of knowledge is poor consistent with his diagnoses. Laboratory Data: Reviewed. Impression: Major neurocognitive disorder, early Alzheimer, vascular with delusion, depression, behavioral disturbance. Anxiety disorder unspecified. Impulse control disorder unspecified. Plan: No change from initial note. Assessment: Vital Signs/I&O: Vital Signs Date Time Temp Pulse Resp B/P (MAP) Pulse Ox O2 Delivery O2 Flow Rate FiO2 02/02/22 06:17 98.5 59 16 128/68 (88) 94 02/01/22 06:11 Room Air 01/30/22 15:54 0.0 I & O 02/01/22 02/01/22 02/02/22 15:00 23:00 07:00 Intake Total 240 ml 360 ml Balance 240 ml 360 ml Labs: Laboratory Tests Test 02/02/22 06:14 White Blood Count 4.3 x10^3/uL (4.0-11.0) Red Blood Count 4.27 x10^6/uL (4.30-5.70) L Hemoglobin 12.4 g/dL (13.0-17.5) L Hematocrit 38.1 % (39.0-53.0) L Mean Corpuscular Volume 89 fL (79-100) Mean Corpuscular Hemoglobin 29 pg (25-35) Mean Corpuscular Hemoglobin Concent 33 g/dL (31-37) Red Cell Distribution Width 13.9 % (11.5-14.5) Platelet Count 132 x10^3/uL (140-400) L Neutrophils (%) (Auto) 53 % (31-73) Lymphocytes (%) (Auto) 31 % (24-48) Monocytes (%) (Auto) 11 % (0-9) H Eosinophils (%) (Auto) 5 % (0-3) H Basophils (%) (Auto) 1 % (0-3) Neutrophils # (Auto) 2.3 x10^3uL (1.8-7.7) Lymphocytes # (Auto) 1.4 x10^3/uL (1.0-4.8) Monocytes # (Auto) 0.5 x10^3/uL (0.0-1.1) Eosinophils # (Auto) 0.2 x10^3/uL (0.0-0.7) Basophils # (Auto) 0.0 x10^3/uL (0.0-0.2) Sodium Level 154 mmol/L (136-145) H Potassium Level 3.9 mmol/L (3.5-5.1) Chloride Level 116 mmol/L (98-107) H Carbon Dioxide Level 33 mmol/L (21-32) H Anion Gap 5 (6-14) L Blood Urea Nitrogen 38 mg/dL (8-26) H Creatinine 1.5 mg/dL (0.7-1.3) H Estimated GFR (Cockcroft-Gault) 45.4 BUN/Creatinine Ratio 25 (6-20) H Glucose Level 101 mg/dL (70-99) H Calcium Level 8.8 mg/dL (8.5-10.1) Total Bilirubin 0.3 mg/dL (0.2-1.0) Aspartate Amino Transferase (AST) 26 U/L (15-37) Alanine Aminotransferase (ALT) 37 U/L (16-63) Alkaline Phosphatase 52 U/L (46-116) Total Protein 5.7 g/dL (6.4-8.2) L Albumin 2.9 g/dL (3.4-5.0) L Albumin/Globulin Ratio 1.0 (1.0-1.7) Valproic Acid Level 18 mcg/mL (50-100) L Valproic Acid Last Dose Date 02/01/22 Valproic Acid Last Dose Time 1700 Current Medications: I have reviewed the current psychotropics carefully including drug interactions. Risk benefit ratio favors no change other than as noted in my dictated progress note. Diagnosis: Problems: (1) Impulse control disorder, unspecified (2) Anxiety disorder, unspecified (3) Dementia, vascular, with depression (4) Dementia, vascular, with delusions (5) Dementia in Alzheimer's disease with depression (6) Dementia in Alzheimer's disease with delusions (7) Dementia of the Alzheimer's type with early onset with behavioral disturbance (8) Major neurocognitive disorder SANCHEZ JEAN MD Feb 02, 2022 08:49
[2022-02-02] MEDS: ASPIRIN ENTERIC COATED 81 MG TABLET.DR. PO SCH (09:30)
[2022-02-02] MEDS: PANTOPRAZOLE 40 MG TABLET. PO SCH (09:30)
[2022-02-02] MEDS: traZODone 50 MG TABLET. PO SCH ×3 (09:30→17:22)
[2022-02-02] MEDS: DIVALPROEX 125 MG CAP.SPRINK PO SCH ×2 (09:30→17:22)
[2022-02-02] MEDS: MIRABEGRON 25 MG TAB.ER.24H PO SCH (09:32)
[2022-02-02] MEDS: LISINOPRIL 10 MG TABLET PO SCH (09:32)
[2022-02-02] MEDS: METOPROLOL TART IMMED RELEASE 25 MG TABLET. PO SCH ×2 (09:32→20:22)
[2022-02-02] MEDS: CETIRIZINE HCL 10 MG TABLET PO SCH (09:32)
[2022-02-02 16:01] VITALS: BP 112/71
[2022-02-02] MEDS: ALPRAZolam 0.25 MG TABLET PO PRN (20:22)
[2022-02-02] MEDS: ATORVASTATIN CALCIUM 20 MG TABLET PO SCH (20:22)
[2022-02-02] MEDS: MIRTAZAPINE 7.5 MG TABLET. PO SCH (20:22)
[2022-02-02] MEDS: traZODone 50 MG TABLET. PO PRN (20:23)
--- NOTE | 2022-02-02 21:20 | PDOC ---
Exam Note: Bernard Note: Please also refer to the separate dictated note~for this date of service dictated separately.~Patient seen individually. Discussed the patient with Nursing staff reviewed the chart.~Reviewed interim history and current functioning. Reviewed vital signs,~Labs/ Radiology~and current medications noted below. Continue current treatment with the changes noted in the dictated addendum note Assessment: Vital Signs/I&O: Vital Signs Date Time Temp Pulse Resp B/P (MAP) Pulse Ox O2 Delivery O2 Flow Rate FiO2 02/02/22 20:22 61 112/71 02/02/22 16:01 97.6 18 93 Room Air 01/30/22 15:54 0.0 I & O 02/01/22 02/01/22 02/02/22 14:59 22:59 06:59 Intake Total 240 ml 360 ml Balance 240 ml 360 ml Labs: Laboratory Tests Test 02/02/22 06:14 White Blood Count 4.3 x10^3/uL (4.0-11.0) Red Blood Count 4.27 x10^6/uL (4.30-5.70) L Hemoglobin 12.4 g/dL (13.0-17.5) L Hematocrit 38.1 % (39.0-53.0) L Mean Corpuscular Volume 89 fL (79-100) Mean Corpuscular Hemoglobin 29 pg (25-35) Mean Corpuscular Hemoglobin Concent 33 g/dL (31-37) Red Cell Distribution Width 13.9 % (11.5-14.5) Platelet Count 132 x10^3/uL (140-400) L Neutrophils (%) (Auto) 53 % (31-73) Lymphocytes (%) (Auto) 31 % (24-48) Monocytes (%) (Auto) 11 % (0-9) H Eosinophils (%) (Auto) 5 % (0-3) H Basophils (%) (Auto) 1 % (0-3) Neutrophils # (Auto) 2.3 x10^3uL (1.8-7.7) Lymphocytes # (Auto) 1.4 x10^3/uL (1.0-4.8) Monocytes # (Auto) 0.5 x10^3/uL (0.0-1.1) Eosinophils # (Auto) 0.2 x10^3/uL (0.0-0.7) Basophils # (Auto) 0.0 x10^3/uL (0.0-0.2) Sodium Level 154 mmol/L (136-145) H Potassium Level 3.9 mmol/L (3.5-5.1) Chloride Level 116 mmol/L (98-107) H Carbon Dioxide Level 33 mmol/L (21-32) H Anion Gap 5 (6-14) L Blood Urea Nitrogen 38 mg/dL (8-26) H Creatinine 1.5 mg/dL (0.7-1.3) H Estimated GFR (Cockcroft-Gault) 45.4 BUN/Creatinine Ratio 25 (6-20) H Glucose Level 101 mg/dL (70-99) H Calcium Level 8.8 mg/dL (8.5-10.1) Total Bilirubin 0.3 mg/dL (0.2-1.0) Aspartate Amino Transferase (AST) 26 U/L (15-37) Alanine Aminotransferase (ALT) 37 U/L (16-63) Alkaline Phosphatase 52 U/L (46-116) Total Protein 5.7 g/dL (6.4-8.2) L Albumin 2.9 g/dL (3.4-5.0) L Albumin/Globulin Ratio 1.0 (1.0-1.7) Valproic Acid Level 18 mcg/mL (50-100) L Valproic Acid Last Dose Date 02/01/22 Valproic Acid Last Dose Time 1700 Current Medications: Meds: Laboratory Tests Test 02/02/22 06:14 White Blood Count 4.3 x10^3/uL Red Blood Count 4.27 x10^6/uL Hemoglobin 12.4 g/dL Hematocrit 38.1 % Mean Corpuscular Volume 89 fL Mean Corpuscular Hemoglobin 29 pg Mean Corpuscular Hemoglobin Concent 33 g/dL Red Cell Distribution Width 13.9 % Platelet Count 132 x10^3/uL Neutrophils (%) (Auto) 53 % Lymphocytes (%) (Auto) 31 % Monocytes (%) (Auto) 11 % Eosinophils (%) (Auto) 5 % Basophils (%) (Auto) 1 % Neutrophils # (Auto) 2.3 x10^3uL Lymphocytes # (Auto) 1.4 x10^3/uL Monocytes # (Auto) 0.5 x10^3/uL Eosinophils # (Auto) 0.2 x10^3/uL Basophils # (Auto) 0.0 x10^3/uL Sodium Level 154 mmol/L Potassium Level 3.9 mmol/L Chloride Level 116 mmol/L Carbon Dioxide Level 33 mmol/L Anion Gap 5 Blood Urea Nitrogen 38 mg/dL Creatinine 1.5 mg/dL Estimated GFR (Cockcroft-Gault) 45.4 BUN/Creatinine Ratio 25 Glucose Level 101 mg/dL Calcium Level 8.8 mg/dL Total Bilirubin 0.3 mg/dL Aspartate Amino Transf (AST/SGOT) 26 U/L Alanine Aminotransferase (ALT/SGPT) 37 U/L Alkaline Phosphatase 52 U/L Total Protein 5.7 g/dL Albumin 2.9 g/dL Albumin/Globulin Ratio 1.0 Valproic Acid (Depakene) Level 18 mcg/mL Valproic Acid Last Dose Date 02/01/22 Valproic Acid Last Dose Time 1700 Current Medications Medications (Trade) Dose Ordered Sig/Leoncio Route PRN Reason Start Time Stop Time Status Last Admin Dose Admin Alprazolam (Xanax) 0.25 mg PRN QHS PRN PO ANXIETY / AGITATION 01/22/22 16:30 02/02/22 20:22 Aspirin (Aspirin Enteric Coated) 81 mg DAILY PO 01/23/22 09:00 02/02/22 09:30 Donepezil HCl (Aricept) 10 mg QHS PO 01/22/22 21:00 01/24/22 16:39 DC 01/23/22 21:36 Haloperidol (Haldol) 0.5 mg PRN TID PRN PO AGITATION 01/22/22 16:30 01/22/22 16:57 DC 01/22/22 16:29 Memantine (Namenda) 10 mg BID PO 01/22/22 21:00 01/24/22 16:38 DC 01/24/22 09:00 Metoprolol Tartrate (Lopressor) 25 mg BID PO 01/22/22 21:00 02/02/22 20:22 Lisinopril (Prinivil) 10 mg DAILY PO 01/23/22 09:00 02/02/22 09:32 Cetirizine HCl (ZyrTEC) 10 mg DAILY PO 01/23/22 09:00 02/02/22 09:32 Mirabegron (Myrbetriq) 50 mg DAILY PO 01/23/22 09:00 02/02/22 09:32 Pantoprazole Sodium (Protonix) 40 mg DAILYAC PO 01/23/22 07:30 02/02/22 09:30 Atorvastatin Calcium (Lipitor) 80 mg QHS PO 01/22/22 21:00 02/02/22 20:22 Acetaminophen (Tylenol) 650 mg PRN Q6HRS PRN PO MILD PAIN / TEMP > 100.3'F 01/22/22 16:45 02/02/22 09:31 Multi-Ingredient Ointment (Analgesic [place]) 1 [place] PRN QID PRN TP MUSCLE PAIN 01/22/22 16:45 Al Hydroxide/Mg Hydroxide (Mylanta Plus Xs) 15 ml PRN AFTMEALHC PRN PO DYSPEPSIA 01/22/22 16:45 Magnesium Hydroxide (Milk Of Magnesia) 2,400 mg PRN QHS PRN PO CONSTIPATION 01/22/22 16:45 Olanzapine (ZyPREXA) 2.5 mg PRN Q2HR PRN PO AGITATION 01/22/22 17:00 01/22/22 17:06 DC Olanzapine (ZyPREXA ZYDIS) 2.5 mg PRN Q2HRS PRN PO PSYCHOSIS 01/22/22 17:15 01/25/22 11:10 Trazodone HCl (Desyrel) 50 mg PRN QHS PRN PO insomnia 01/22/22 21:45 02/02/22 20:23 Trazodone HCl (Desyrel) 25 mg DAILY PO 01/23/22 15:30 01/23/22 16:22 DC 01/23/22 15:30 Trazodone HCl (Desyrel) 25 mg 0900,1300,1700 PO 01/23/22 17:00 02/02/22 17:22 Sodium Chloride 1,000 ml @ 1,000 mls/hr 1X ONCE IV 01/23/22 17:15 01/23/22 18:14 DC 01/23/22 17:15 Mirtazapine (Remeron) 7.5 mg QHS PO 01/30/22 21:00 02/02/22 20:22 Divalproex Sodium (Depakote Sprinkles) 125 mg 0900,1700 PO 01/30/22 17:00 02/02/22 17:22 I have reviewed the current psychotropics carefully including drug interactions. Risk benefit ratio favors no change other than as noted in my dictated progress note. Diagnosis: Problems: (1) Impulse control disorder, unspecified (2) Anxiety disorder, unspecified (3) Dementia, vascular, with depression (4) Dementia, vascular, with delusions (5) Dementia in Alzheimer's disease with depression (6) Dementia in Alzheimer's disease with delusions (7) Dementia of the Alzheimer's type with early onset with behavioral disturbance (8) Major neurocognitive disorder SANCHEZ JEAN MD Feb 02, 2022 21:20
[2022-02-03 06:34] VITALS: BP 128/60
[2022-02-03] MEDS: PANTOPRAZOLE 40 MG TABLET. PO SCH ×2 (07:30→07:35)
[2022-02-03] MEDS: MIRABEGRON 25 MG TAB.ER.24H PO SCH ×2 (07:35→09:00)
[2022-02-03] MEDS: ASPIRIN ENTERIC COATED 81 MG TABLET.DR. PO SCH ×2 (07:35→09:00)
[2022-02-03] MEDS: LISINOPRIL 10 MG TABLET PO SCH ×2 (07:36→09:00)
[2022-02-03] MEDS: CETIRIZINE HCL 10 MG TABLET PO SCH ×2 (07:36→09:00)
[2022-02-03] MEDS: METOPROLOL TART IMMED RELEASE 25 MG TABLET. PO SCH ×3 (07:36→19:56)
[2022-02-03] MEDS: traZODone 50 MG TABLET. PO SCH ×5 (07:37→23:21)
[2022-02-03] MEDS: DIVALPROEX 125 MG CAP.SPRINK PO SCH ×3 (07:37→16:07)
[2022-02-03 15:55] VITALS: BP 113/68
[2022-02-03] MEDS: MIRTAZAPINE 7.5 MG TABLET. PO SCH (19:56)
[2022-02-03] MEDS: ATORVASTATIN CALCIUM 20 MG TABLET PO SCH (19:57)
--- NOTE | 2022-02-03 21:22 | PDOC ---
Exam Note: Bernard Note: Please also refer to the separate dictated note~for this date of service dictated separately.~Patient seen individually. Discussed the patient with Nursing staff reviewed the chart.~Reviewed interim history and current functioning. Reviewed vital signs,~Labs/ Radiology~and current medications noted below. Continue current treatment with the changes noted in the dictated addendum note Assessment: Vital Signs/I&O: Vital Signs Date Time Temp Pulse Resp B/P (MAP) Pulse Ox O2 Delivery O2 Flow Rate FiO2 02/03/22 19:56 92 113/68 02/03/22 15:55 96.8 16 93 02/02/22 16:01 Room Air 01/30/22 15:54 0.0 I & O 02/02/22 02/02/22 02/03/22 15:00 23:00 07:00 Intake Total 480 ml Balance 480 ml Current Medications: Meds: Current Medications Medications (Trade) Dose Ordered Sig/Leoncio Route PRN Reason Start Time Stop Time Status Last Admin Dose Admin Alprazolam (Xanax) 0.25 mg PRN QHS PRN PO ANXIETY / AGITATION 01/22/22 16:30 02/02/22 20:22 Aspirin (Aspirin Enteric Coated) 81 mg DAILY PO 01/23/22 09:00 02/03/22 09:00 Donepezil HCl (Aricept) 10 mg QHS PO 01/22/22 21:00 01/24/22 16:39 DC 01/23/22 21:36 Haloperidol (Haldol) 0.5 mg PRN TID PRN PO AGITATION 01/22/22 16:30 01/22/22 16:57 DC 01/22/22 16:29 Memantine (Namenda) 10 mg BID PO 01/22/22 21:00 01/24/22 16:38 DC 01/24/22 09:00 Metoprolol Tartrate (Lopressor) 25 mg BID PO 01/22/22 21:00 02/03/22 19:56 Lisinopril (Prinivil) 10 mg DAILY PO 01/23/22 09:00 02/03/22 09:00 Cetirizine HCl (ZyrTEC) 10 mg DAILY PO 01/23/22 09:00 02/02/22 09:32 Mirabegron (Myrbetriq) 50 mg DAILY PO 01/23/22 09:00 02/03/22 09:00 Pantoprazole Sodium (Protonix) 40 mg DAILYAC PO 01/23/22 07:30 02/02/22 09:30 Atorvastatin Calcium (Lipitor) 80 mg QHS PO 01/22/22 21:00 02/03/22 19:57 Acetaminophen (Tylenol) 650 mg PRN Q6HRS PRN PO MILD PAIN / TEMP > 100.3'F 01/22/22 16:45 02/02/22 09:31 Multi-Ingredient Ointment (Analgesic [place]) 1 [place] PRN QID PRN TP MUSCLE PAIN 01/22/22 16:45 Al Hydroxide/Mg Hydroxide (Mylanta Plus Xs) 15 ml PRN AFTMEALHC PRN PO DYSPEPSIA 01/22/22 16:45 Magnesium Hydroxide (Milk Of Magnesia) 2,400 mg PRN QHS PRN PO CONSTIPATION 01/22/22 16:45 Olanzapine (ZyPREXA) 2.5 mg PRN Q2HR PRN PO AGITATION 01/22/22 17:00 01/22/22 17:06 DC Olanzapine (ZyPREXA ZYDIS) 2.5 mg PRN Q2HRS PRN PO PSYCHOSIS 01/22/22 17:15 02/03/22 19:57 Trazodone HCl (Desyrel) 50 mg PRN QHS PRN PO insomnia 01/22/22 21:45 02/02/22 20:23 Trazodone HCl (Desyrel) 25 mg DAILY PO 01/23/22 15:30 01/23/22 16:22 DC 01/23/22 15:30 Trazodone HCl (Desyrel) 25 mg 0900,1300,1700 PO 01/23/22 17:00 02/03/22 16:08 Sodium Chloride 1,000 ml @ 1,000 mls/hr 1X ONCE IV 01/23/22 17:15 01/23/22 18:14 DC 01/23/22 17:15 Mirtazapine (Remeron) 7.5 mg QHS PO 01/30/22 21:00 02/03/22 19:56 Divalproex Sodium (Depakote Sprinkles) 125 mg 0900,1700 PO 01/30/22 17:00 02/03/22 18:27 DC 02/03/22 16:07 Divalproex Sodium (Depakote Sprinkles) 125 mg 0900 PO 02/04/22 09:00 Divalproex Sodium (Depakote Sprinkles) 250 mg 1700 PO 02/04/22 17:00 I have reviewed the current psychotropics carefully including drug interactions. Risk benefit ratio favors no change other than as noted in my dictated progress note. Diagnosis: Problems: (1) Impulse control disorder, unspecified (2) Anxiety disorder, unspecified (3) Dementia, vascular, with depression (4) Dementia, vascular, with delusions (5) Dementia in Alzheimer's disease with depression (6) Dementia in Alzheimer's disease with delusions (7) Dementia of the Alzheimer's type with early onset with behavioral disturbance (8) Major neurocognitive disorder SANCHEZ JEAN MD Feb 03, 2022 21:22
[2022-02-04 06:20] VITALS: BP 122/74
[2022-02-04] MEDS: PANTOPRAZOLE 40 MG TABLET. PO SCH (07:30)
--- NOTE | 2022-02-04 08:41 | PDOC ---
Exam Note: Bernard Note: This note is a late entry for 02/02/2022 covers elements not covered in my initial note. Subjective: The patient was seen individually on 02/02/2022, discussed and reviewed the chart with Silvia MONTALVO. The patient slept 6-1/2 hours previous night. He remains confused, active on the unit, more steady in gait, not using wheelchair or walker. Review of Systems: No CV, , pulmonary, eye, ENT system symptoms on review. Reliability poor. Mental Status Exam: The patient is oriented to himself. Insight and judgment, recent and remote memory, attention and concentration, fund of knowledge is poor consistent with his diagnoses. Laboratory Data: Reviewed. Impression: Major neurocognitive disorder, early Alzheimer, vascular with delusion, depression, behavioral disturbance. Anxiety disorder unspecified. Impulse control disorder unspecified. Plan: No change from initial note. Assessment: Vital Signs/I&O: Vital Signs Date Time Temp Pulse Resp B/P (MAP) Pulse Ox O2 Delivery O2 Flow Rate FiO2 02/04/22 06:20 97.7 79 17 122/74 (90) 95 Room Air 01/30/22 15:54 0.0 I & O 02/03/22 02/03/22 02/04/22 15:00 23:00 07:00 Intake Total 340 ml 580 ml Balance 340 ml 580 ml Current Medications: I have reviewed the current psychotropics carefully including drug interactions. Risk benefit ratio favors no change other than as noted in my dictated progress note. Diagnosis: Problems: (1) Impulse control disorder, unspecified (2) Anxiety disorder, unspecified (3) Dementia, vascular, with depression (4) Dementia, vascular, with delusions (5) Dementia in Alzheimer's disease with depression (6) Dementia in Alzheimer's disease with delusions (7) Dementia of the Alzheimer's type with early onset with behavioral disturbance (8) Major neurocognitive disorder SANCHEZ JEAN MD Feb 04, 2022 08:41
[2022-02-04] MEDS ORDERED: traZODone 50 MG TABLET. PO ONE (09:00)
[2022-02-04] MEDS: CETIRIZINE HCL 10 MG TABLET PO SCH (09:00)
--- NOTE | 2022-02-04 09:19 | PDOC ---
Exam Note: Bernard Note: This note is a late entry for 02/03/2022 covers elements not covered in my initial note. Subjective: The patient was seen individually on 02/03/2022, discussed and reviewed the chart with Agnes MONTALVO. The patient slept 1/2 hours previous night. He remains confused, somewhat impulsive, getting into other patients rooms, difficult to redirect. He plants his feet and refuses to move. Earlier he had taken away the walker of another female demented patient who is a great risk for fall and staff is monitoring this closely. Valproic acid level is subtherapeutic at 18. Review of Systems: No CV, , pulmonary, eye, ENT system symptoms on review. Reliability poor. Mental Status Exam: The patient is oriented to himself. Insight and judgment, recent and remote memory, attention and concentration, fund of knowledge is poor consistent with his diagnoses. Laboratory Data: Reviewed. Impression: Major neurocognitive disorder, early Alzheimer, vascular with delusion, depression, behavioral disturbance. Anxiety disorder unspecified. Impulse control disorder unspecified. Plan: Valproic acid level is subtherapeutic at 18. Behavioral dyscontrol, impulsivity is still significant problem. We will increase Depakote Sprinkle from 125 mg b.i.d. to 125 mg a.m. and 250 mg h.s. Check CBC, CMP, valproic acid level in 3 days. Maintain rest of the psychotropics unchanged. Assessment: Vital Signs/I&O: Vital Signs Date Time Temp Pulse Resp B/P (MAP) Pulse Ox O2 Delivery O2 Flow Rate FiO2 02/04/22 06:20 97.7 79 17 122/74 (90) 95 Room Air 01/30/22 15:54 0.0 I & O 02/03/22 02/03/22 02/04/22 15:00 23:00 07:00 Intake Total 340 ml 580 ml Balance 340 ml 580 ml Current Medications: I have reviewed the current psychotropics carefully including drug interactions. Risk benefit ratio favors no change other than as noted in my dictated progress note. Diagnosis: Problems: (1) Impulse control disorder, unspecified (2) Anxiety disorder, unspecified (3) Dementia, vascular, with depression (4) Dementia, vascular, with delusions (5) Dementia in Alzheimer's disease with depression (6) Dementia in Alzheimer's disease with delusions (7) Dementia of the Alzheimer's type with early onset with behavioral disturbance (8) Major neurocognitive disorder SANCHEZ JEAN MD Feb 04, 2022 09:19
[2022-02-04 11:58] VITALS: BP 109/63
[2022-02-04] MEDS: DIVALPROEX 125 MG CAP.SPRINK PO SCH ×2 (12:00→16:06)
[2022-02-04] MEDS: traZODone 50 MG TABLET. PO SCH ×2 (12:00→16:07)
[2022-02-04] MEDS: MIRABEGRON 25 MG TAB.ER.24H PO SCH (12:01)
[2022-02-04] MEDS: LISINOPRIL 10 MG TABLET PO SCH (12:01)
[2022-02-04] MEDS: METOPROLOL TART IMMED RELEASE 25 MG TABLET. PO SCH ×2 (12:01→21:00)
[2022-02-04] MEDS: ASPIRIN ENTERIC COATED 81 MG TABLET.DR. PO SCH (12:01)
[2022-02-04 12:50] LABS: CALCIUM 9.4 mg/dL (8.5-10.1); CREATININE 1.2 mg/dL (0.7-1.3); GFR 58.7; POTASSIUM 4.1 mmol/L (3.5-5.1)
[2022-02-04 15:43] VITALS: BP 114/65
[2022-02-04] MEDS: MIRTAZAPINE 7.5 MG TABLET. PO SCH (19:44)
[2022-02-04] MEDS: ATORVASTATIN CALCIUM 20 MG TABLET PO SCH (19:45)
[2022-02-04] MEDS: traZODone 50 MG TABLET. PO PRN (19:45)
[2022-02-04] MEDS: ALPRAZolam 0.25 MG TABLET PO PRN (20:32)
--- NOTE | 2022-02-04 21:31 | PDOC ---
Exam Note: Bernard Note: Please also refer to the separate dictated note~for this date of service dictated separately.~Patient seen individually. Discussed the patient with Nursing staff reviewed the chart.~Reviewed interim history and current functioning. Reviewed vital signs,~Labs/ Radiology~and current medications noted below. Continue current treatment with the changes noted in the dictated addendum note Assessment: Vital Signs/I&O: Vital Signs Date Time Temp Pulse Resp B/P (MAP) Pulse Ox O2 Delivery O2 Flow Rate FiO2 02/04/22 15:43 97.4 68 20 114/65 (81) 97 02/04/22 11:58 Room Air 01/30/22 15:54 0.0 I & O 02/03/22 02/03/22 02/04/22 15:00 23:00 07:00 Intake Total 340 ml 580 ml Balance 340 ml 580 ml Labs: Laboratory Tests Test 02/04/22 12:31 Sodium Level 147 mmol/L (136-145) H Potassium Level 4.1 mmol/L (3.5-5.1) Chloride Level 108 mmol/L (98-107) H Carbon Dioxide Level 34 mmol/L (21-32) H Anion Gap 5 (6-14) L Blood Urea Nitrogen 26 mg/dL (8-26) Creatinine 1.2 mg/dL (0.7-1.3) Estimated GFR (Cockcroft-Gault) 58.7 Glucose Level 105 mg/dL (70-99) H Calcium Level 9.4 mg/dL (8.5-10.1) Current Medications: Meds: Laboratory Tests Test 02/04/22 12:31 Sodium Level 147 mmol/L Potassium Level 4.1 mmol/L Chloride Level 108 mmol/L Carbon Dioxide Level 34 mmol/L Anion Gap 5 Blood Urea Nitrogen 26 mg/dL Creatinine 1.2 mg/dL Estimated GFR (Cockcroft-Gault) 58.7 Glucose Level 105 mg/dL Calcium Level 9.4 mg/dL Current Medications Medications (Trade) Dose Ordered Sig/Leoncio Route PRN Reason Start Time Stop Time Status Last Admin Dose Admin Alprazolam (Xanax) 0.25 mg PRN QHS PRN PO ANXIETY / AGITATION 01/22/22 16:30 02/04/22 20:32 Aspirin (Aspirin Enteric Coated) 81 mg DAILY PO 01/23/22 09:00 02/04/22 12:01 Donepezil HCl (Aricept) 10 mg QHS PO 01/22/22 21:00 01/24/22 16:39 DC 01/23/22 21:36 Haloperidol (Haldol) 0.5 mg PRN TID PRN PO AGITATION 01/22/22 16:30 01/22/22 16:57 DC 01/22/22 16:29 Memantine (Namenda) 10 mg BID PO 01/22/22 21:00 01/24/22 16:38 DC 01/24/22 09:00 Metoprolol Tartrate (Lopressor) 25 mg BID PO 01/22/22 21:00 02/04/22 12:01 Lisinopril (Prinivil) 10 mg DAILY PO 01/23/22 09:00 02/04/22 12:01 Cetirizine HCl (ZyrTEC) 10 mg DAILY PO 01/23/22 09:00 02/02/22 09:32 Mirabegron (Myrbetriq) 50 mg DAILY PO 01/23/22 09:00 02/04/22 12:01 Pantoprazole Sodium (Protonix) 40 mg DAILYAC PO 01/23/22 07:30 02/02/22 09:30 Atorvastatin Calcium (Lipitor) 80 mg QHS PO 01/22/22 21:00 02/04/22 19:45 Acetaminophen (Tylenol) 650 mg PRN Q6HRS PRN PO MILD PAIN / TEMP > 100.3'F 01/22/22 16:45 02/02/22 09:31 Multi-Ingredient Ointment (Analgesic [place]) 1 [place] PRN QID PRN TP MUSCLE PAIN 01/22/22 16:45 Al Hydroxide/Mg Hydroxide (Mylanta Plus Xs) 15 ml PRN AFTMEALHC PRN PO DYSPEPSIA 01/22/22 16:45 Magnesium Hydroxide (Milk Of Magnesia) 2,400 mg PRN QHS PRN PO CONSTIPATION 01/22/22 16:45 Olanzapine (ZyPREXA) 2.5 mg PRN Q2HR PRN PO AGITATION 01/22/22 17:00 01/22/22 17:06 DC Olanzapine (ZyPREXA ZYDIS) 2.5 mg PRN Q2HRS PRN PO PSYCHOSIS 01/22/22 17:15 02/03/22 19:57 Trazodone HCl (Desyrel) 50 mg PRN QHS PRN PO insomnia 01/22/22 21:45 02/04/22 19:45 Trazodone HCl (Desyrel) 25 mg DAILY PO 01/23/22 15:30 01/23/22 16:22 DC 01/23/22 15:30 Trazodone HCl (Desyrel) 25 mg 0900,1300,1700 PO 01/23/22 17:00 02/04/22 16:07 Sodium Chloride 1,000 ml @ 1,000 mls/hr 1X ONCE IV 01/23/22 17:15 01/23/22 18:14 DC 01/23/22 17:15 Mirtazapine (Remeron) 7.5 mg QHS PO 01/30/22 21:00 02/04/22 19:44 Divalproex Sodium (Depakote Sprinkles) 125 mg 0900,1700 PO 01/30/22 17:00 02/03/22 18:27 DC 02/03/22 16:07 Divalproex Sodium (Depakote Sprinkles) 125 mg 0900 PO 02/04/22 09:00 02/04/22 12:00 Divalproex Sodium (Depakote Sprinkles) 250 mg 1700 PO 02/04/22 17:00 02/04/22 16:06 Trazodone HCl (Desyrel) 25 mg 1X ONCE PO 02/04/22 09:00 02/04/22 09:01 DC Current Medications Medications (Trade) Dose Ordered Sig/Leoncio Route PRN Reason Start Time Stop Time Status Last Admin Dose Admin Divalproex Sodium (Depakote Sprinkles) 125 mg 0900 PO 02/04/22 09:00 02/04/22 12:00 Divalproex Sodium (Depakote Sprinkles) 250 mg 1700 PO 02/04/22 17:00 02/04/22 16:06 I have reviewed the current psychotropics carefully including drug interactions. Risk benefit ratio favors no change other than as noted in my dictated progress note. Diagnosis: Problems: (1) Impulse control disorder, unspecified (2) Anxiety disorder, unspecified (3) Dementia, vascular, with depression (4) Dementia, vascular, with delusions (5) Dementia in Alzheimer's disease with depression (6) Dementia in Alzheimer's disease with delusions (7) Dementia of the Alzheimer's type with early onset with behavioral disturbance (8) Major neurocognitive disorder SANCHEZ JEAN MD Feb 04, 2022 21:31
[2022-02-05 05:49] VITALS: BP 127/66
[2022-02-05] MEDS: CETIRIZINE HCL 10 MG TABLET PO SCH (11:34)
[2022-02-05] MEDS: LISINOPRIL 10 MG TABLET PO SCH (11:34)
[2022-02-05] MEDS: ASPIRIN ENTERIC COATED 81 MG TABLET.DR. PO SCH (11:34)
[2022-02-05] MEDS: PANTOPRAZOLE 40 MG TABLET. PO SCH (11:34)
[2022-02-05] MEDS: traZODone 50 MG TABLET. PO SCH ×3 (11:35→16:53)
[2022-02-05] MEDS: MIRABEGRON 25 MG TAB.ER.24H PO SCH (11:35)
[2022-02-05] MEDS: DIVALPROEX 125 MG CAP.SPRINK PO SCH ×2 (11:35→16:53)
[2022-02-05] MEDS: METOPROLOL TART IMMED RELEASE 25 MG TABLET. PO SCH ×2 (11:36→19:35)
[2022-02-05 15:35] VITALS: BP 127/70
[2022-02-05] MEDS: traZODone 50 MG TABLET. PO PRN ×2 (19:34→20:40)
[2022-02-05] MEDS: ATORVASTATIN CALCIUM 20 MG TABLET PO SCH (19:35)
[2022-02-05] MEDS: MIRTAZAPINE 7.5 MG TABLET. PO SCH (19:35)
--- NOTE | 2022-02-05 21:52 | PDOC ---
Exam Note: Bernard Note: Please also refer to the separate dictated note~for this date of service dictated separately.~Patient seen individually. Discussed the patient with Nursing staff reviewed the chart.~Reviewed interim history and current functioning. Reviewed vital signs,~Labs/ Radiology~and current medications noted below. Continue current treatment with the changes noted in the dictated addendum note Assessment: Vital Signs/I&O: Vital Signs Date Time Temp Pulse Resp B/P (MAP) Pulse Ox O2 Delivery O2 Flow Rate FiO2 02/05/22 19:35 94 127/70 02/05/22 15:35 97.9 20 95 02/04/22 11:58 Room Air 01/30/22 15:54 0.0 I & O 02/04/22 02/04/22 02/05/22 15:00 23:00 07:00 Intake Total 240 ml 240 ml Balance 240 ml 240 ml Current Medications: Meds: Current Medications Medications (Trade) Dose Ordered Sig/Leoncio Route PRN Reason Start Time Stop Time Status Last Admin Dose Admin Alprazolam (Xanax) 0.25 mg PRN QHS PRN PO ANXIETY / AGITATION 01/22/22 16:30 02/04/22 20:32 Aspirin (Aspirin Enteric Coated) 81 mg DAILY PO 01/23/22 09:00 02/05/22 11:34 Donepezil HCl (Aricept) 10 mg QHS PO 01/22/22 21:00 01/24/22 16:39 DC 01/23/22 21:36 Haloperidol (Haldol) 0.5 mg PRN TID PRN PO AGITATION 01/22/22 16:30 01/22/22 16:57 DC 01/22/22 16:29 Memantine (Namenda) 10 mg BID PO 01/22/22 21:00 01/24/22 16:38 DC 01/24/22 09:00 Metoprolol Tartrate (Lopressor) 25 mg BID PO 01/22/22 21:00 02/05/22 19:35 Lisinopril (Prinivil) 10 mg DAILY PO 01/23/22 09:00 02/05/22 11:34 Cetirizine HCl (ZyrTEC) 10 mg DAILY PO 01/23/22 09:00 02/05/22 11:34 Mirabegron (Myrbetriq) 50 mg DAILY PO 01/23/22 09:00 02/05/22 11:35 Pantoprazole Sodium (Protonix) 40 mg DAILYAC PO 01/23/22 07:30 02/05/22 11:34 Atorvastatin Calcium (Lipitor) 80 mg QHS PO 01/22/22 21:00 02/05/22 19:35 Acetaminophen (Tylenol) 650 mg PRN Q6HRS PRN PO MILD PAIN / TEMP > 100.3'F 01/22/22 16:45 02/02/22 09:31 Multi-Ingredient Ointment (Analgesic [place]) 1 [place] PRN QID PRN TP MUSCLE PAIN 01/22/22 16:45 Al Hydroxide/Mg Hydroxide (Mylanta Plus Xs) 15 ml PRN AFTMEALHC PRN PO DYSPEPSIA 01/22/22 16:45 Magnesium Hydroxide (Milk Of Magnesia) 2,400 mg PRN QHS PRN PO CONSTIPATION 01/22/22 16:45 Olanzapine (ZyPREXA) 2.5 mg PRN Q2HR PRN PO AGITATION 01/22/22 17:00 01/22/22 17:06 DC Olanzapine (ZyPREXA ZYDIS) 2.5 mg PRN Q2HRS PRN PO PSYCHOSIS 01/22/22 17:15 02/05/22 18:15 Trazodone HCl (Desyrel) 50 mg PRN QHS PRN PO insomnia 01/22/22 21:45 02/05/22 20:40 Trazodone HCl (Desyrel) 25 mg DAILY PO 01/23/22 15:30 01/23/22 16:22 DC 01/23/22 15:30 Trazodone HCl (Desyrel) 25 mg 0900,1300,1700 PO 01/23/22 17:00 02/05/22 16:53 Sodium Chloride 1,000 ml @ 1,000 mls/hr 1X ONCE IV 01/23/22 17:15 01/23/22 18:14 DC 01/23/22 17:15 Mirtazapine (Remeron) 7.5 mg QHS PO 01/30/22 21:00 02/05/22 19:35 Divalproex Sodium (Depakote Sprinkles) 125 mg 0900,1700 PO 01/30/22 17:00 02/03/22 18:27 DC 02/03/22 16:07 Divalproex Sodium (Depakote Sprinkles) 125 mg 0900 PO 02/04/22 09:00 02/05/22 11:35 Divalproex Sodium (Depakote Sprinkles) 250 mg 1700 PO 02/04/22 17:00 02/05/22 16:53 Trazodone HCl (Desyrel) 25 mg 1X ONCE PO 02/04/22 09:00 02/04/22 09:01 DC I have reviewed the current psychotropics carefully including drug interactions. Risk benefit ratio favors no change other than as noted in my dictated progress note. 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
[2022-02-06] MEDS: traZODone 50 MG TABLET. PO PRN ×2 (02:23→20:13)
[2022-02-06 06:26] VITALS: BP 157/73
--- NOTE | 2022-02-06 06:44 | PDOC ---
Exam Note: Bernard Note: This note is a late entry for 02/04/2022 covers elements not covered in my initial note. Subjective: The patient was seen individually on 02/04/2022, discussed and reviewed the chart with Solo MONTALVO. The patient slept 2-3/4 hours previous night. He is sleeping poorly at night. He received trazodone x3 and Xanax. He is still somewhat hypernatremic and fluids are being pushed. Review of Systems: No CV, , pulmonary, eye, ENT system symptoms on review. Reliability poor. Mental Status Exam: The patient is oriented to himself. Insight and judgment, recent and remote memory, attention and concentration, fund of knowledge is poor consistent with his diagnoses. Laboratory Data: Reviewed. Impression: Major neurocognitive disorder, early Alzheimer, vascular with delusion, depression, behavioral disturbance. Anxiety disorder unspecified. Impulse control disorder unspecified. Plan: No change from initial note. Assessment: Vital Signs/I&O: Vital Signs Date Time Temp Pulse Resp B/P (MAP) Pulse Ox O2 Delivery O2 Flow Rate FiO2 02/06/22 06:26 97.7 62 18 157/73 (101) 96 02/04/22 11:58 Room Air I & O 02/05/22 02/05/22 02/06/22 15:00 23:00 07:00 Intake Total 240 ml 360 ml Balance 240 ml 360 ml Current Medications: I have reviewed the current psychotropics carefully including drug interactions. Risk benefit ratio favors no change other than as noted in my dictated progress note. Diagnosis: Problems: (1) Impulse control disorder, unspecified (2) Anxiety disorder, unspecified (3) Dementia, vascular, with depression (4) Dementia, vascular, with delusions (5) Dementia in Alzheimer's disease with depression (6) Dementia in Alzheimer's disease with delusions (7) Dementia of the Alzheimer's type with early onset with behavioral disturbance (8) Major neurocognitive disorder SANCHEZ JEAN MD Feb 06, 2022 06:44
[2022-02-06] MEDS: ASPIRIN ENTERIC COATED 81 MG TABLET.DR. PO SCH (11:13)
[2022-02-06] MEDS: PANTOPRAZOLE 40 MG TABLET. PO SCH (11:13)
[2022-02-06] MEDS: DIVALPROEX 125 MG CAP.SPRINK PO SCH ×2 (11:14→17:15)
[2022-02-06] MEDS: traZODone 50 MG TABLET. PO SCH ×3 (11:14→17:15)
[2022-02-06] MEDS: CETIRIZINE HCL 10 MG TABLET PO SCH (11:14)
[2022-02-06] MEDS: METOPROLOL TART IMMED RELEASE 25 MG TABLET. PO SCH ×2 (11:15→20:12)
[2022-02-06] MEDS: LISINOPRIL 10 MG TABLET PO SCH (11:15)
[2022-02-06] MEDS: MIRABEGRON 25 MG TAB.ER.24H PO SCH (11:15)
[2022-02-06 15:54] VITALS: BP 133/96
[2022-02-06 19:58] LABS: BACTERIA,URINE MANY /HPF (0-FEW); CLARITY,URINE HAZY; COLOR,URINE YELLOW; GLUCOSE,URINE NEG (NEG); NITRITE,URINE NEG (NEG); RBC,URINE OCC /HPF (0-2)
[2022-02-06] MEDS: MELATONIN 3 MG TABLET PO SCH (20:13)
[2022-02-06] MEDS: MIRTAZAPINE 7.5 MG TABLET. PO SCH (20:13)
[2022-02-06] MEDS: ATORVASTATIN CALCIUM 20 MG TABLET PO SCH (20:13)
[2022-02-06] MEDS: ALPRAZolam 0.25 MG TABLET PO PRN (20:43)
--- NOTE | 2022-02-06 21:37 | PDOC ---
Exam Note: Bernard Note: Please also refer to the separate dictated note~for this date of service dictated separately.~Patient seen individually. Discussed the patient with Nursing staff reviewed the chart.~Reviewed interim history and current functioning. Reviewed vital signs,~Labs/ Radiology~and current medications noted below. Continue current treatment with the changes noted in the dictated addendum note Assessment: Vital Signs/I&O: Vital Signs Date Time Temp Pulse Resp B/P (MAP) Pulse Ox O2 Delivery O2 Flow Rate FiO2 02/06/22 20:12 66 133/96 02/06/22 15:54 97.6 19 98 02/04/22 11:58 Room Air I & O 02/05/22 02/05/22 02/06/22 14:59 22:59 06:59 Intake Total 240 ml 360 ml Balance 240 ml 360 ml Labs: Laboratory Tests Test 02/06/22 05:44 02/06/22 18:23 POC SARS CoV-2 Antigen Negative (NEGATIVE) Urine Collection Type U cath Urine Color Yellow Urine Clarity Hazy Urine pH 7.0 Urine Specific [place] 1.025 Urine Protein Neg (NEG-TRACE) Urine Glucose (UA) Neg mg/dL (NEG) Urine Ketones (Stick) Trace mg/dL (NEG) Urine Blood Neg (NEG) Urine Nitrite Neg (NEG) Urine Bilirubin Neg (NEG) Urine Urobilinogen Dipstick 2.0 mg/dL (0.2 mg/dL) Urine Leukocyte Esterase Trace (NEG) Urine RBC Occ /HPF (0-2) Urine WBC 5-10 /HPF (0-4) Urine Bacteria Many /HPF (0-FEW) Current Medications: Meds: Laboratory Tests Test 02/06/22 05:44 02/06/22 18:23 POC SARS CoV-2 Antigen Negative Urine Collection Type U cath Urine Color Yellow Urine Clarity Hazy Urine pH 7.0 Urine Specific [place] 1.025 Urine Protein Neg Urine Glucose (UA) Neg mg/dL Urine Ketones (Stick) Trace mg/dL Urine Blood Neg Urine Nitrite Neg Urine Bilirubin Neg Urine Urobilinogen Dipstick 2.0 mg/dL Urine Leukocyte Esterase Trace Urine RBC Occ /HPF Urine WBC 5-10 /HPF Urine Bacteria Many /HPF Current Medications Medications (Trade) Dose Ordered Sig/Leoncio Route PRN Reason Start Time Stop Time Status Last Admin Dose Admin Alprazolam (Xanax) 0.25 mg PRN QHS PRN PO ANXIETY / AGITATION 01/22/22 16:30 02/06/22 20:43 Aspirin (Aspirin Enteric Coated) 81 mg DAILY PO 01/23/22 09:00 02/06/22 11:13 Donepezil HCl (Aricept) 10 mg QHS PO 01/22/22 21:00 01/24/22 16:39 DC 01/23/22 21:36 Haloperidol (Haldol) 0.5 mg PRN TID PRN PO AGITATION 01/22/22 16:30 01/22/22 16:57 DC 01/22/22 16:29 Memantine (Namenda) 10 mg BID PO 01/22/22 21:00 01/24/22 16:38 DC 01/24/22 09:00 Metoprolol Tartrate (Lopressor) 25 mg BID PO 01/22/22 21:00 02/06/22 20:12 Lisinopril (Prinivil) 10 mg DAILY PO 01/23/22 09:00 02/06/22 11:15 Cetirizine HCl (ZyrTEC) 10 mg DAILY PO 01/23/22 09:00 02/06/22 11:14 Mirabegron (Myrbetriq) 50 mg DAILY PO 01/23/22 09:00 02/06/22 11:15 Pantoprazole Sodium (Protonix) 40 mg DAILYAC PO 01/23/22 07:30 02/06/22 11:13 Atorvastatin Calcium (Lipitor) 80 mg QHS PO 01/22/22 21:00 02/06/22 20:13 Acetaminophen (Tylenol) 650 mg PRN Q6HRS PRN PO MILD PAIN / TEMP > 100.3'F 01/22/22 16:45 02/02/22 09:31 Multi-Ingredient Ointment (Analgesic [place]) 1 [place] PRN QID PRN TP MUSCLE PAIN 01/22/22 16:45 Al Hydroxide/Mg Hydroxide (Mylanta Plus Xs) 15 ml PRN AFTMEALHC PRN PO DYSPEPSIA 01/22/22 16:45 Magnesium Hydroxide (Milk Of Magnesia) 2,400 mg PRN QHS PRN PO CONSTIPATION 01/22/22 16:45 Olanzapine (ZyPREXA) 2.5 mg PRN Q2HR PRN PO AGITATION 01/22/22 17:00 01/22/22 17:06 DC Olanzapine (ZyPREXA ZYDIS) 2.5 mg PRN Q2HRS PRN PO PSYCHOSIS 01/22/22 17:15 02/06/22 18:01 Trazodone HCl (Desyrel) 50 mg PRN QHS PRN PO insomnia 01/22/22 21:45 02/06/22 20:13 Trazodone HCl (Desyrel) 25 mg DAILY PO 01/23/22 15:30 01/23/22 16:22 DC 01/23/22 15:30 Trazodone HCl (Desyrel) 25 mg 0900,1300,1700 PO 01/23/22 17:00 02/06/22 17:15 Sodium Chloride 1,000 ml @ 1,000 mls/hr 1X ONCE IV 01/23/22 17:15 01/23/22 18:14 DC 01/23/22 17:15 Mirtazapine (Remeron) 7.5 mg QHS PO 01/30/22 21:00 02/06/22 20:13 Divalproex Sodium (Depakote Sprinkles) 125 mg 0900,1700 PO 01/30/22 17:00 02/03/22 18:27 DC 02/03/22 16:07 Divalproex Sodium (Depakote Sprinkles) 125 mg 0900 PO 02/04/22 09:00 02/06/22 11:14 Divalproex Sodium (Depakote Sprinkles) 250 mg 1700 PO 02/04/22 17:00 02/06/22 17:15 Trazodone HCl (Desyrel) 25 mg 1X ONCE PO 02/04/22 09:00 02/04/22 09:01 DC Melatonin (Melatonin) 3 mg QHS PO 02/06/22 21:00 02/06/22 20:13 Current Medications Medications (Trade) Dose Ordered Sig/Leoncio Route PRN Reason Start Time Stop Time Status Last Admin Dose Admin Melatonin (Melatonin) 3 mg QHS PO 02/06/22 21:00 02/06/22 20:13 I have reviewed the current psychotropics carefully including drug interactions. Risk benefit ratio favors no change other than as noted in my dictated progress note. Diagnosis: Problems: (1) Impulse control disorder, unspecified (2) Anxiety disorder, unspecified (3) Dementia, vascular, with depression (4) Dementia, vascular, with delusions (5) Dementia in Alzheimer's disease with depression (6) Dementia in Alzheimer's disease with delusions (7) Dementia of the Alzheimer's type with early onset with behavioral disturbance (8) Major neurocognitive disorder SANCHEZ JEAN MD Feb 06, 2022 21:37
[2022-02-07 05:40] VITALS: BP 113/48
[2022-02-07 07:18] LABS: BASO # 0.1 x10^3/uL (0.0-0.2); BASO % 2 % (0-3); EOS # 0.2 x10^3/uL (0.0-0.7); EOS % 6 % (0-3); HEMATOCRIT 40.3 % (39.0-53.0); HEMOGLOBIN 13.1 g/dL (13.0-17.5); LYMPH # 1.4 x10^3/uL (1.0-4.8); LYMPH % 36 % (24-48); MEAN CORPUSCULAR HEMOGLOBIN 29 pg (25-35); MEAN CORPUSCULAR HGB CONC 33 g/dL (31-37); MEAN CORPUSCULAR VOLUME 89 fL (79-100); MONO # 0.4 x10^3/uL (0.0-1.1); MONO % 10 % (0-9); NEUT # 1.8 x10^3uL (1.8-7.7); NEUT % 46 % (31-73); PLATELET COUNT 133 x10^3/uL (140-400); RED BLOOD COUNT 4.54 x10^6/uL (4.30-5.70); RED CELL DISTRIBUTION WIDTH 13.7 % (11.5-14.5)
[2022-02-07 07:19] LABS: ALBUMIN/GLOBULIN RATIO 1.2 (1.0-1.7); ALK PHOS 58 U/L (46-116); ALT (SGPT) 25 U/L (16-63); ANION GAP 5 (6-14); AST (SGOT) 33 U/L (15-37); BLOOD UREA NITROGEN 22 mg/dL (8-26); BUN/CREATININE RATIO 16 (6-20); CARBON DIOXIDE 34 mmol/L (21-32); CHLORIDE 110 mmol/L (98-107); CREATININE 1.4 mg/dL (0.7-1.3); GFR 49.1; GLUCOSE 94 mg/dL (70-99); POTASSIUM 4.6 mmol/L (3.5-5.1); SODIUM 149 mmol/L (136-145); TOTAL BILIRUBIN 0.4 mg/dL (0.2-1.0); TOTAL PROTEIN 5.6 g/dL (6.4-8.2)
[2022-02-07 07:40] LABS: VAL ACID 40 mcg/mL (50-100)
[2022-02-07] MEDS: LISINOPRIL 10 MG TABLET PO SCH (09:00)
[2022-02-07] MEDS: METOPROLOL TART IMMED RELEASE 25 MG TABLET. PO SCH ×2 (09:00→20:21)
[2022-02-07] MEDS: CETIRIZINE HCL 10 MG TABLET PO SCH (12:16)
[2022-02-07] MEDS: PANTOPRAZOLE 40 MG TABLET. PO SCH (12:17)
[2022-02-07] MEDS: traZODone 50 MG TABLET. PO SCH ×3 (12:17→17:28)
[2022-02-07] MEDS: MIRABEGRON 25 MG TAB.ER.24H PO SCH (12:17)
[2022-02-07] MEDS: DIVALPROEX 125 MG CAP.SPRINK PO SCH ×2 (12:18→17:28)
[2022-02-07] MEDS: ASPIRIN ENTERIC COATED 81 MG TABLET.DR. PO SCH (12:18)
[2022-02-07 16:01] VITALS: BP 116/54
[2022-02-07 16:05] VITALS: BP 116/54
[2022-02-07] MEDS: ATORVASTATIN CALCIUM 20 MG TABLET PO SCH (20:21)
[2022-02-07] MEDS: MIRTAZAPINE 7.5 MG TABLET. PO SCH (20:21)
[2022-02-07] MEDS: MELATONIN 3 MG TABLET PO SCH (20:21)
[2022-02-07] MEDS: MAGNESIUM HYDROXIDE 2,400 MG/30 ML ORAL.SUSP. PO PRN (20:22)
--- NOTE | 2022-02-07 21:45 | PDOC ---
Exam Note: Bernard Note: This note is a late entry for 02/05/2022 covers elements not covered in my initial note. Subjective: The patient was seen individually on 02/05/2022, discussed and reviewed the chart with Jenny MONTALVO. The patient slept 7-1/4 hours previous night. He remains confused, wandering, intrusive. He slept until 12.30 in the afternoon. He enters others rooms, difficult to redirect. Review of Systems: No CV, , pulmonary, eye, ENT system symptoms on review. Reliability poor. Mental Status Exam: The patient is oriented to himself. Insight and judgment, recent and remote memory, attention and concentration, fund of knowledge is poor consistent with his diagnoses. Laboratory Data: Reviewed. Impression: Major neurocognitive disorder, early Alzheimer, vascular with delusion, depression, behavioral disturbance. Anxiety disorder unspecified. Impulse control disorder unspecified. Plan: Continue psychotropics from initial note. He is sleeping poorly at night and we may consider adding Remeron if this persist though last night he slept reasonably well at 7-1/4 hours. Social service staff is discussing with about option of nursing placement rather than home. Assessment: Vital Signs/I&O: Vital Signs Date Time Temp Pulse Resp B/P (MAP) Pulse Ox O2 Delivery O2 Flow Rate FiO2 02/07/22 20:21 80 116/54 02/07/22 16:05 98.4 18 95 Room Air I & O 02/06/22 02/06/22 02/07/22 15:00 23:00 07:00 Intake Total 240 ml 480 ml Balance 240 ml 480 ml Labs: Laboratory Tests Test 02/07/22 06:40 White Blood Count 4.0 x10^3/uL (4.0-11.0) Red Blood Count 4.54 x10^6/uL (4.30-5.70) Hemoglobin 13.1 g/dL (13.0-17.5) Hematocrit 40.3 % (39.0-53.0) Mean Corpuscular Volume 89 fL (79-100) Mean Corpuscular Hemoglobin 29 pg (25-35) Mean Corpuscular Hemoglobin Concent 33 g/dL (31-37) Red Cell Distribution Width 13.7 % (11.5-14.5) Platelet Count 133 x10^3/uL (140-400) L Neutrophils (%) (Auto) 46 % (31-73) Lymphocytes (%) (Auto) 36 % (24-48) Monocytes (%) (Auto) 10 % (0-9) H Eosinophils (%) (Auto) 6 % (0-3) H Basophils (%) (Auto) 2 % (0-3) Neutrophils # (Auto) 1.8 x10^3uL (1.8-7.7) Lymphocytes # (Auto) 1.4 x10^3/uL (1.0-4.8) Monocytes # (Auto) 0.4 x10^3/uL (0.0-1.1) Eosinophils # (Auto) 0.2 x10^3/uL (0.0-0.7) Basophils # (Auto) 0.1 x10^3/uL (0.0-0.2) Sodium Level 149 mmol/L (136-145) H Potassium Level 4.6 mmol/L (3.5-5.1) Chloride Level 110 mmol/L (98-107) H Carbon Dioxide Level 34 mmol/L (21-32) H Anion Gap 5 (6-14) L Blood Urea Nitrogen 22 mg/dL (8-26) Creatinine 1.4 mg/dL (0.7-1.3) H Estimated GFR (Cockcroft-Gault) 49.1 BUN/Creatinine Ratio 16 (6-20) Glucose Level 94 mg/dL (70-99) Calcium Level 9.0 mg/dL (8.5-10.1) Total Bilirubin 0.4 mg/dL (0.2-1.0) Aspartate Amino Transferase (AST) 33 U/L (15-37) Alanine Aminotransferase (ALT) 25 U/L (16-63) Alkaline Phosphatase 58 U/L (46-116) Total Protein 5.6 g/dL (6.4-8.2) L Albumin 3.0 g/dL (3.4-5.0) L Albumin/Globulin Ratio 1.2 (1.0-1.7) Valproic Acid Level 40 mcg/mL (50-100) L Valproic Acid Last Dose Date 02/06/22 Valproic Acid Last Dose Time 1700 Current Medications: I have reviewed the current psychotropics carefully including drug interactions. Risk benefit ratio favors no change other than as noted in my dictated progress note. Diagnosis: Problems: (1) Impulse control disorder, unspecified (2) Anxiety disorder, unspecified (3) Dementia, vascular, with depression (4) Dementia, vascular, with delusions (5) Dementia in Alzheimer's disease with depression (6) Dementia in Alzheimer's disease with delusions (7) Dementia of the Alzheimer's type with early onset with behavioral di sturbance (8) Major neurocognitive disorder SANCHEZ JEAN MD Feb 07, 2022 21:45
--- NOTE | 2022-02-07 22:09 | PDOC ---
Exam Note: Bernard Note: This note is a late entry for 02/06/2022 covers elements not covered in my initial note. Subjective: The patient was seen individually on 02/06/2022, discussed and reviewed the chart with Mayela MONTALVO. The patient slept 1/2 hours previous night. He remains confused, wanders. I had a call from social adamaris Claudio, earlier today. The patient continues to have significant ongoing mood lability. He may have UTI and we will do a straight cath for this and treat as appropriate and this could be worsening some of his agitation. is following through with the Medicaid application and division of assets to help with longterm placement on Medicaid since this may well be needed given the extent of the patients dementia and behavioral dyscontrol which more than likely may be difficult to handle at home by the . He did take his medications at 11 a.m. Review of Systems: No CV, , pulmonary, eye, ENT system symptoms on review. Reliability poor. Mental Status Exam: The patient is oriented to himself. Insight and judgment, recent and remote memory, attention and concentration, fund of knowledge is poor consistent with his diagnoses. Laboratory Data: Reviewed. Impression: Major neurocognitive disorder, early Alzheimer, vascular with delusion, depression, behavioral disturbance. Anxiety disorder unspecified. Impulse control disorder unspecified. Plan: Continue psychotropics from initial note. Add melatonin 3 mg h.s. Check CBC, CMP, valproic acid level on 02/07 and adjust Depakote thereafter to reach therapeutic level and treat UTI if this is positive. Assessment: Vital Signs/I&O: Vital Signs Date Time Temp Pulse Resp B/P (MAP) Pulse Ox O2 Delivery O2 Flow Rate FiO2 02/07/22 20:21 80 116/54 02/07/22 16:05 98.4 18 95 Room Air I & O 02/06/22 02/06/22 02/07/22 15:00 23:00 07:00 Intake Total 240 ml 480 ml Balance 240 ml 480 ml Labs: Laboratory Tests Test 02/07/22 06:40 White Blood Count 4.0 x10^3/uL (4.0-11.0) Red Blood Count 4.54 x10^6/uL (4.30-5.70) Hemoglobin 13.1 g/dL (13.0-17.5) Hematocrit 40.3 % (39.0-53.0) Mean Corpuscular Volume 89 fL (79-100) Mean Corpuscular Hemoglobin 29 pg (25-35) Mean Corpuscular Hemoglobin Concent 33 g/dL (31-37) Red Cell Distribution Width 13.7 % (11.5-14.5) Platelet Count 133 x10^3/uL (140-400) L Neutrophils (%) (Auto) 46 % (31-73) Lymphocytes (%) (Auto) 36 % (24-48) Monocytes (%) (Auto) 10 % (0-9) H Eosinophils (%) (Auto) 6 % (0-3) H Basophils (%) (Auto) 2 % (0-3) Neutrophils # (Auto) 1.8 x10^3uL (1.8-7.7) Lymphocytes # (Auto) 1.4 x10^3/uL (1.0-4.8) Monocytes # (Auto) 0.4 x10^3/uL (0.0-1.1) Eosinophils # (Auto) 0.2 x10^3/uL (0.0-0.7) Basophils # (Auto) 0.1 x10^3/uL (0.0-0.2) Sodium Level 149 mmol/L (136-145) H Potassium Level 4.6 mmol/L (3.5-5.1) Chloride Level 110 mmol/L (98-107) H Carbon Dioxide Level 34 mmol/L (21-32) H Anion Gap 5 (6-14) L Blood Urea Nitrogen 22 mg/dL (8-26) Creatinine 1.4 mg/dL (0.7-1.3) H Estimated GFR (Cockcroft-Gault) 49.1 BUN/Creatinine Ratio 16 (6-20) Glucose Level 94 mg/dL (70-99) Calcium Level 9.0 mg/dL (8.5-10.1) Total Bilirubin 0.4 mg/dL (0.2-1.0) Aspartate Amino Transferase (AST) 33 U/L (15-37) Alanine Aminotransferase (ALT) 25 U/L (16-63) Alkaline Phosphatase 58 U/L (46-116) Total Protein 5.6 g/dL (6.4-8.2) L Albumin 3.0 g/dL (3.4-5.0) L Albumin/Globulin Ratio 1.2 (1.0-1.7) Valproic Acid Level 40 mcg/mL (50-100) L Valproic Acid Last Dose Date 02/06/22 Valproic Acid Last Dose Time 1700 Current Medications: I have reviewed the current psychotropics carefully including drug interactions. Risk benefit ratio favors no change other than as noted in my dictated progress note. Diagnosis: Problems: (1) Impulse control disorder, unspecified (2) Anxiety disorder, unspecified (3) Dementia, vascular, with depression (4) Dementia, vascular, with delusions (5) Dementia in Alzheimer's disease with depression (6) Dementia in Alzheimer's disease with delusions (7) Dementia of the Alzheimer's type with early onset with behavioral disturbance (8) Major neurocognitive disorder SANCHEZ JEAN MD Feb 07, 2022 22:08
--- NOTE | 2022-02-07 22:09 | PDOC ---
Exam Note: Bernard Note: Please also refer to the separate dictated note~for this date of service dictated separately.~Patient seen individually. Discussed the patient with Nursing staff reviewed the chart.~Reviewed interim history and current functioning. Reviewed vital signs,~Labs/ Radiology~and current medications noted below. Continue current treatment with the changes noted in the dictated addendum note Assessment: Vital Signs/I&O: Vital Signs Date Time Temp Pulse Resp B/P (MAP) Pulse Ox O2 Delivery O2 Flow Rate FiO2 02/07/22 20:21 80 116/54 02/07/22 16:05 98.4 18 95 Room Air I & O 02/06/22 02/06/22 02/07/22 15:00 23:00 07:00 Intake Total 240 ml 480 ml Balance 240 ml 480 ml Labs: Laboratory Tests Test 02/07/22 06:40 White Blood Count 4.0 x10^3/uL (4.0-11.0) Red Blood Count 4.54 x10^6/uL (4.30-5.70) Hemoglobin 13.1 g/dL (13.0-17.5) Hematocrit 40.3 % (39.0-53.0) Mean Corpuscular Volume 89 fL (79-100) Mean Corpuscular Hemoglobin 29 pg (25-35) Mean Corpuscular Hemoglobin Concent 33 g/dL (31-37) Red Cell Distribution Width 13.7 % (11.5-14.5) Platelet Count 133 x10^3/uL (140-400) L Neutrophils (%) (Auto) 46 % (31-73) Lymphocytes (%) (Auto) 36 % (24-48) Monocytes (%) (Auto) 10 % (0-9) H Eosinophils (%) (Auto) 6 % (0-3) H Basophils (%) (Auto) 2 % (0-3) Neutrophils # (Auto) 1.8 x10^3uL (1.8-7.7) Lymphocytes # (Auto) 1.4 x10^3/uL (1.0-4.8) Monocytes # (Auto) 0.4 x10^3/uL (0.0-1.1) Eosinophils # (Auto) 0.2 x10^3/uL (0.0-0.7) Basophils # (Auto) 0.1 x10^3/uL (0.0-0.2) Sodium Level 149 mmol/L (136-145) H Potassium Level 4.6 mmol/L (3.5-5.1) Chloride Level 110 mmol/L (98-107) H Carbon Dioxide Level 34 mmol/L (21-32) H Anion Gap 5 (6-14) L Blood Urea Nitrogen 22 mg/dL (8-26) Creatinine 1.4 mg/dL (0.7-1.3) H Estimated GFR (Cockcroft-Gault) 49.1 BUN/Creatinine Ratio 16 (6-20) Glucose Level 94 mg/dL (70-99) Calcium Level 9.0 mg/dL (8.5-10.1) Total Bilirubin 0.4 mg/dL (0.2-1.0) Aspartate Amino Transferase (AST) 33 U/L (15-37) Alanine Aminotransferase (ALT) 25 U/L (16-63) Alkaline Phosphatase 58 U/L (46-116) Total Protein 5.6 g/dL (6.4-8.2) L Albumin 3.0 g/dL (3.4-5.0) L Albumin/Globulin Ratio 1.2 (1.0-1.7) Valproic Acid Level 40 mcg/mL (50-100) L Valproic Acid Last Dose Date 02/06/22 Valproic Acid Last Dose Time 1700 Current Medications: Meds: Laboratory Tests Test 02/07/22 06:40 White Blood Count 4.0 x10^3/uL Red Blood Count 4.54 x10^6/uL Hemoglobin 13.1 g/dL Hematocrit 40.3 % Mean Corpuscular Volume 89 fL Mean Corpuscular Hemoglobin 29 pg Mean Corpuscular Hemoglobin Concent 33 g/dL Red Cell Distribution Width 13.7 % Platelet Count 133 x10^3/uL Neutrophils (%) (Auto) 46 % Lymphocytes (%) (Auto) 36 % Monocytes (%) (Auto) 10 % Eosinophils (%) (Auto) 6 % Basophils (%) (Auto) 2 % Neutrophils # (Auto) 1.8 x10^3uL Lymphocytes # (Auto) 1.4 x10^3/uL Monocytes # (Auto) 0.4 x10^3/uL Eosinophils # (Auto) 0.2 x10^3/uL Basophils # (Auto) 0.1 x10^3/uL Sodium Level 149 mmol/L Potassium Level 4.6 mmol/L Chloride Level 110 mmol/L Carbon Dioxide Level 34 mmol/L Anion Gap 5 Blood Urea Nitrogen 22 mg/dL Creatinine 1.4 mg/dL Estimated GFR (Cockcroft-Gault) 49.1 BUN/Creatinine Ratio 16 Glucose Level 94 mg/dL Calcium Level 9.0 mg/dL Total Bilirubin 0.4 mg/dL Aspartate Amino Transf (AST/SGOT) 33 U/L Alanine Aminotransferase (ALT/SGPT) 25 U/L Alkaline Phosphatase 58 U/L Total Protein 5.6 g/dL Albumin 3.0 g/dL Albumin/Globulin Ratio 1.2 Valproic Acid (Depakene) Level 40 mcg/mL Valproic Acid Last Dose Date 02/06/22 Valproic Acid Last Dose Time 1700 Current Medications Medications (Trade) Dose Ordered Sig/Leoncio Route PRN Reason Start Time Stop Time Status Last Admin Dose Admin Alprazolam (Xanax) 0.25 mg PRN QHS PRN PO ANXIETY / AGITATION 01/22/22 16:30 02/06/22 20:43 Aspirin (Aspirin Enteric Coated) 81 mg DAILY PO 01/23/22 09:00 02/07/22 12:18 Donepezil HCl (Aricept) 10 mg QHS PO 01/22/22 21:00 01/24/22 16:39 DC 01/23/22 21:36 Haloperidol (Haldol) 0.5 mg PRN TID PRN PO AGITATION 01/22/22 16:30 01/22/22 16:57 DC 01/22/22 16:29 Memantine (Namenda) 10 mg BID PO 01/22/22 21:00 01/24/22 16:38 DC 01/24/22 09:00 Metoprolol Tartrate (Lopressor) 25 mg BID PO 01/22/22 21:00 02/07/22 20:21 Lisinopril (Prinivil) 10 mg DAILY PO 01/23/22 09:00 02/06/22 11:15 Cetirizine HCl (ZyrTEC) 10 mg DAILY PO 01/23/22 09:00 02/07/22 12:16 Mirabegron (Myrbetriq) 50 mg DAILY PO 01/23/22 09:00 02/07/22 12:17 Pantoprazole Sodium (Protonix) 40 mg DAILYAC PO 01/23/22 07:30 02/07/22 12:17 Atorvastatin Calcium (Lipitor) 80 mg QHS PO 01/22/22 21:00 02/07/22 20:21 Acetaminophen (Tylenol) 650 mg PRN Q6HRS PRN PO MILD PAIN / TEMP > 100.3'F 01/22/22 16:45 02/02/22 09:31 Multi-Ingredient Ointment (Analgesic [place]) 1 [place] PRN QID PRN TP MUSCLE PAIN 01/22/22 16:45 Al Hydroxide/Mg Hydroxide (Mylanta Plus Xs) 15 ml PRN AFTMEALHC PRN PO DYSPEPSIA 01/22/22 16:45 Magnesium Hydroxide (Milk Of Magnesia) 2,400 mg PRN QHS PRN PO CONSTIPATION 01/22/22 16:45 02/07/22 20:22 Olanzapine (ZyPREXA) 2.5 mg PRN Q2HR PRN PO AGITATION 01/22/22 17:00 01/22/22 17:06 DC Olanzapine (ZyPREXA ZYDIS) 2.5 mg PRN Q2HRS PRN PO PSYCHOSIS 01/22/22 17:15 02/07/22 20:27 Trazodone HCl (Desyrel) 50 mg PRN QHS PRN PO insomnia 01/22/22 21:45 02/06/22 20:13 Trazodone HCl (Desyrel) 25 mg DAILY PO 01/23/22 15:30 01/23/22 16:22 DC 01/23/22 15:30 Trazodone HCl (Desyrel) 25 mg 0900,1300,1700 PO 01/23/22 17:00 02/07/22 17:28 Sodium Chloride 1,000 ml @ 1,000 mls/hr 1X ONCE IV 01/23/22 17:15 01/23/22 18:14 DC 01/23/22 17:15 Mirtazapine (Remeron) 7.5 mg QHS PO 01/30/22 21:00 02/07/22 20:21 Divalproex Sodium (Depakote Sprinkles) 125 mg 0900,1700 PO 01/30/22 17:00 02/03/22 18:27 DC 02/03/22 16:07 Divalproex Sodium (Depakote Sprinkles) 125 mg 0900 PO 02/04/22 09:00 02/07/22 12:18 Divalproex Sodium (Depakote Sprinkles) 250 mg 1700 PO 02/04/22 17:00 02/07/22 17:28 Trazodone HCl (Desyrel) 25 mg 1X ONCE PO 02/04/22 09:00 02/04/22 09:01 DC Melatonin (Melatonin) 3 mg QHS PO 02/06/22 21:00 02/07/22 20:21 I have reviewed the current psychotropics carefully including drug interactions. Risk benefit ratio favors no change other than as noted in my dictated progress note. Diagnosis: Problems: (1) Impulse control disorder, unspecified (2) Anxiety disorder, unspecified (3) Dementia, vascular, with depression (4) Dementia, vascular, with delusions (5) Dementia in Alzheimer's disease with depression (6) Dementia in Alzheimer's disease with delusions (7) Dementia of the Alzheimer's type with early onset with behavioral disturbance (8) Major neurocognitive disorder SANCHEZ JEAN MD Feb 07, 2022 22:09
[2022-02-08 05:57] VITALS: BP 138/59
[2022-02-08] MEDS: PANTOPRAZOLE 40 MG TABLET. PO SCH (07:30)
[2022-02-08] MEDS: CETIRIZINE HCL 10 MG TABLET PO SCH (09:00)
[2022-02-08] MEDS: MIRABEGRON 25 MG TAB.ER.24H PO SCH (12:21)
[2022-02-08] MEDS: ASPIRIN ENTERIC COATED 81 MG TABLET.DR. PO SCH (12:21)
[2022-02-08] MEDS: DIVALPROEX 125 MG CAP.SPRINK PO SCH ×2 (12:21→17:22)
[2022-02-08] MEDS: LISINOPRIL 10 MG TABLET PO SCH (12:30)
[2022-02-08 12:31] VITALS: BP 126/71
[2022-02-08] MEDS: METOPROLOL TART IMMED RELEASE 25 MG TABLET. PO SCH ×2 (12:31→21:00)
--- NOTE | 2022-02-08 15:27 | TX PLAN ---
Interdisciplinary Tx Plan Admission Information Jan 22, 2022 at 15:15 Legal Status (on Admission): Voluntary DPOA/Guardian Name: Elena Fry Contact Other Contact Name: Elena Fry Other Contact Verified Code Status: DNR Allergies: Coded Allergies: No Known Drug Allergies (Unverified , 12/18/21) Diagnoses Primary Diagnosis: Dementia with BD Reasons for Admission: Sig. Change Appetite, Sig. Change Sleep, Combative, Poor impulse control Problem in Patient's Words: Continued dementia decline and needs help. Additional Admission Comments: According to the intake, pt is combative towards spouse during times of cares and meds, agitated, sundowning, insomnia (hasn't slept in the last 48 hours), word salad Problems Active Problems: Resistive to cares insomnia word salad Inactive Problems: non-compliant with meds Pt Strengths/Limitations Ability for [place]: Poor Cognitive Functioning/Ability: Fair Communication Skills/Ability: Poor Financial Resources: Fair Insight/Judgement: Poor Intellectual Ability: Fair Physical Health: Poor Social Skills: Fair Stability in Family: Excellent Stability in School/Work: Poor Verbal Skills: Poor Discharge Criteria Discharge Criteria: Adequate arrangements @DC, Improved behavior, Improved mood/thought Preliminary Discharge Plan Preliminary DC Plan: Current Living Arrange. Special Precautions Fall Risk: Low Initial D/C Plan Pt will return home with at the time of discharge. Identified Discharge Needs: Will consider placement if necessary. Currently Utilized Resources Currently Utilized Resources/P: Primary Care Physician Referrals Community Resources: Neurology Psychiatry Identified Problems/Hx/Goals Objectives/Short-Term Goals Short Term Goals: Dec. Outbursts, Improved Social Skills, Promote Coping Skill Short Term Goals in Patient's: N/A Interventions/Frequency Staff Interventions/Frequency&: Psychiatrist to assess pt at least 3x per week for continual medication management. Social Work to assss pt at least 2x per week to identify barriers to care and finalize discharge plans. Nursing to assess medication effects, behavior modifications and completion of 15 minute checks daily. Encourage participation in group activities (if applicable) or 1:1 engagement based off activity dept goals. History Vocational History: Worked for [employer] for 42 years and retired from there. Education: Graduated HS (12th grade) Community Follow-up Primary Care Physician Neurologist Treatment Plan Explained Patient/Bellstand Attendant had this treatment plan explained to him/her as indicated by the signature below and has been given the opportunity to ask questions and make suggestions: Date: Patient/Bellstand Attendant Signature: Patient/Bellstand Attendant Decline: No (Pt is active in pt care.) Status Update Update Pt is eating almost 25% of meals; this is due to pt being very restless and needing staff direction to sit and guide pt to eat his meals. Pt is on finger foods; however, he may need to have something that will allow him to hold while walking around (e.g. sandwich, chicken strips in a cup). Pt is alert and oriented to himself and is a bit more cooperative with cares. Pt has attempted to participate in four groups this week with minimal participation due to his restless and inability to follow directions. Pt , Elena, was present via conference; SW noted Elena's concerns from yesterday about pt sleeping in until almost noon. Medications were discussed as a means that he may be getting too many medications. Pt scale back on his Trazodone from TID to once daily, add Zoloft 25mg for three days then increase to 50mg. Pt still plans to have pt at home. YON will continue to update the insurance company and all parties involved on pt progression. KAREN BAEZA Feb 08, 2022 15:27
[2022-02-08 16:12] VITALS: BP 104/68
[2022-02-08] MEDS: traZODone 50 MG TABLET. PO SCH (17:27)
[2022-02-08] MEDS: MIRTAZAPINE 7.5 MG TABLET. PO SCH (20:53)
[2022-02-08] MEDS: ATORVASTATIN CALCIUM 20 MG TABLET PO SCH (20:53)
[2022-02-08] MEDS: MELATONIN 3 MG TABLET PO SCH (20:53)
[2022-02-08] MEDS: traZODone 50 MG TABLET. PO PRN (20:53)
--- NOTE | 2022-02-08 22:03 | PDOC ---
Exam Note: Bernard Note: Please also refer to the separate dictated note~for this date of service dictated separately.~Patient seen individually. Discussed the patient with Nursing staff reviewed the chart.~Reviewed interim history and current functioning. Reviewed vital signs,~Labs/ Radiology~and current medications noted below. Continue current treatment with the changes noted in the dictated addendum note Assessment: Vital Signs/I&O: Vital Signs Date Time Temp Pulse Resp B/P (MAP) Pulse Ox O2 Delivery O2 Flow Rate FiO2 02/08/22 16:12 97.2 96 20 104/68 (80) 96 02/08/22 05:57 Room Air I & O 02/07/22 02/07/22 02/08/22 15:00 23:00 07:00 Intake Total 360 ml 240 ml Balance 360 ml 240 ml Current Medications: Meds: Current Medications Medications (Trade) Dose Ordered Sig/Leoncio Route PRN Reason Start Time Stop Time Status Last Admin Dose Admin Alprazolam (Xanax) 0.25 mg PRN QHS PRN PO ANXIETY / AGITATION 01/22/22 16:30 02/06/22 20:43 Aspirin (Aspirin Enteric Coated) 81 mg DAILY PO 01/23/22 09:00 02/08/22 12:21 Donepezil HCl (Aricept) 10 mg QHS PO 01/22/22 21:00 01/24/22 16:39 DC 01/23/22 21:36 Haloperidol (Haldol) 0.5 mg PRN TID PRN PO AGITATION 01/22/22 16:30 01/22/22 16:57 DC 01/22/22 16:29 Memantine (Namenda) 10 mg BID PO 01/22/22 21:00 01/24/22 16:38 DC 01/24/22 09:00 Metoprolol Tartrate (Lopressor) 25 mg BID PO 01/22/22 21:00 02/08/22 12:31 Lisinopril (Prinivil) 10 mg DAILY PO 01/23/22 09:00 02/08/22 12:30 Cetirizine HCl (ZyrTEC) 10 mg DAILY PO 01/23/22 09:00 02/07/22 12:16 Mirabegron (Myrbetriq) 50 mg DAILY PO 01/23/22 09:00 02/08/22 12:21 Pantoprazole Sodium (Protonix) 40 mg DAILYAC PO 01/23/22 07:30 02/07/22 12:17 Atorvastatin Calcium (Lipitor) 80 mg QHS PO 01/22/22 21:00 02/08/22 20:53 Acetaminophen (Tylenol) 650 mg PRN Q6HRS PRN PO MILD PAIN / TEMP > 100.3'F 01/22/22 16:45 02/02/22 09:31 Multi-Ingredient Ointment (Analgesic [place]) 1 [place] PRN QID PRN TP MUSCLE PAIN 01/22/22 16:45 Al Hydroxide/Mg Hydroxide (Mylanta Plus Xs) 15 ml PRN AFTMEALHC PRN PO DYSPEPSIA 01/22/22 16:45 Magnesium Hydroxide (Milk Of Magnesia) 2,400 mg PRN QHS PRN PO CONSTIPATION 01/22/22 16:45 02/07/22 20:22 Olanzapine (ZyPREXA) 2.5 mg PRN Q2HR PRN PO AGITATION 01/22/22 17:00 01/22/22 17:06 DC Olanzapine (ZyPREXA ZYDIS) 2.5 mg PRN Q2HRS PRN PO PSYCHOSIS 01/22/22 17:15 02/07/22 20:27 Trazodone HCl (Desyrel) 50 mg PRN QHS PRN PO insomnia 01/22/22 21:45 02/08/22 20:53 Trazodone HCl (Desyrel) 25 mg DAILY PO 01/23/22 15:30 01/23/22 16:22 DC 01/23/22 15:30 Trazodone HCl (Desyrel) 25 mg 0900,1300,1700 PO 01/23/22 17:00 02/08/22 10:24 DC 02/07/22 17:28 Sodium Chloride 1,000 ml @ 1,000 mls/hr 1X ONCE IV 01/23/22 17:15 01/23/22 18:14 DC 01/23/22 17:15 Mirtazapine (Remeron) 7.5 mg QHS PO 01/30/22 21:00 02/08/22 20:53 Divalproex Sodium (Depakote Sprinkles) 125 mg 0900,1700 PO 01/30/22 17:00 02/03/22 18:27 DC 02/03/22 16:07 Divalproex Sodium (Depakote Sprinkles) 125 mg 0900 PO 02/04/22 09:00 02/08/22 12:21 Divalproex Sodium (Depakote Sprinkles) 250 mg 1700 PO 02/04/22 17:00 02/08/22 17:22 Trazodone HCl (Desyrel) 25 mg 1X ONCE PO 02/04/22 09:00 02/04/22 09:01 DC Melatonin (Melatonin) 3 mg QHS PO 02/06/22 21:00 02/08/22 20:53 Trazodone HCl (Desyrel) 25 mg 1700 PO 02/08/22 17:00 02/08/22 17:27 Sertraline HCl (Zoloft) 25 mg DAILY PO 02/09/22 09:00 02/11/22 23:50 Sertraline HCl (Zoloft) 50 mg DAILY PO 02/12/22 09:00 Current Medications Medications (Trade) Dose Ordered Sig/Leoncio Route PRN Reason Start Time Stop Time Status Last Admin Dose Admin Trazodone HCl (Desyrel) 25 mg 1700 PO 02/08/22 17:00 02/08/22 17:27 I have reviewed the current psychotropics carefully including drug interactions. Risk benefit ratio favors no change other than as noted in my dictated progress note. Diagnosis: Problems: (1) Impulse control disorder, unspecified (2) Anxiety disorder, unspecified (3) Dementia, vascular, with depression (4) Dementia, vascular, with delusions (5) Dementia in Alzheimer's disease with depression (6) Dementia in Alzheimer's disease with delusions (7) Dementia of the Alzheimer's type with early onset with behavioral disturbance (8) Major neurocognitive disorder SANCHEZ JEAN MD Feb 08, 2022 22:03
[2022-02-09] MEDS: traZODone 50 MG TABLET. PO PRN ×2 (00:15→20:26)
[2022-02-09 06:20] VITALS: BP 138/68
[2022-02-09] MEDS: METOPROLOL TART IMMED RELEASE 25 MG TABLET. PO SCH ×2 (11:00→20:26)
[2022-02-09] MEDS: CETIRIZINE HCL 10 MG TABLET PO SCH (11:00)
[2022-02-09] MEDS: MIRABEGRON 25 MG TAB.ER.24H PO SCH (11:01)
[2022-02-09] MEDS: DIVALPROEX 125 MG CAP.SPRINK PO SCH ×2 (11:01→17:00)
[2022-02-09] MEDS: PANTOPRAZOLE 40 MG TABLET. PO SCH (11:01)
[2022-02-09] MEDS: ASPIRIN ENTERIC COATED 81 MG TABLET.DR. PO SCH (11:01)
[2022-02-09] MEDS: LISINOPRIL 10 MG TABLET PO SCH (11:02)
[2022-02-09] MEDS: SERTRALINE 25 MG TABLET. PO SCH (11:03)
[2022-02-09 16:35] VITALS: BP 117/50
[2022-02-09] MEDS: traZODone 50 MG TABLET. PO SCH (17:00)
[2022-02-09] MEDS: ATORVASTATIN CALCIUM 20 MG TABLET PO SCH (20:26)
[2022-02-09] MEDS: MELATONIN 3 MG TABLET PO SCH (20:26)
[2022-02-09] MEDS: MIRTAZAPINE 7.5 MG TABLET. PO SCH (20:26)
[2022-02-09] MEDS: MAGNESIUM HYDROXIDE 2,400 MG/30 ML ORAL.SUSP. PO PRN (20:27)
--- NOTE | 2022-02-09 21:54 | PDOC ---
Exam Note: Bernard Note: Please also refer to the separate dictated note~for this date of service dictated separately.~Patient seen individually. Discussed the patient with Nursing staff reviewed the chart.~Reviewed interim history and current functioning. Reviewed vital signs,~Labs/ Radiology~and current medications noted below. Continue current treatment with the changes noted in the dictated addendum note Assessment: Vital Signs/I&O: Vital Signs Date Time Temp Pulse Resp B/P (MAP) Pulse Ox O2 Delivery O2 Flow Rate FiO2 02/09/22 20:26 71 117/50 02/09/22 16:35 97.7 20 95 02/09/22 06:20 Room Air I & O 02/08/22 02/08/22 02/09/22 15:00 23:00 07:00 Intake Total 180 ml 240 ml Balance 180 ml 240 ml Current Medications: Meds: Current Medications Medications (Trade) Dose Ordered Sig/Leoncio Route PRN Reason Start Time Stop Time Status Last Admin Dose Admin Alprazolam (Xanax) 0.25 mg PRN QHS PRN PO ANXIETY / AGITATION 01/22/22 16:30 02/06/22 20:43 Aspirin (Aspirin Enteric Coated) 81 mg DAILY PO 01/23/22 09:00 02/09/22 11:01 Donepezil HCl (Aricept) 10 mg QHS PO 01/22/22 21:00 01/24/22 16:39 DC 01/23/22 21:36 Haloperidol (Haldol) 0.5 mg PRN TID PRN PO AGITATION 01/22/22 16:30 01/22/22 16:57 DC 01/22/22 16:29 Memantine (Namenda) 10 mg BID PO 01/22/22 21:00 01/24/22 16:38 DC 01/24/22 09:00 Metoprolol Tartrate (Lopressor) 25 mg BID PO 01/22/22 21:00 02/09/22 20:26 Lisinopril (Prinivil) 10 mg DAILY PO 01/23/22 09:00 02/09/22 11:02 Cetirizine HCl (ZyrTEC) 10 mg DAILY PO 01/23/22 09:00 02/09/22 11:00 Mirabegron (Myrbetriq) 50 mg DAILY PO 01/23/22 09:00 02/09/22 11:01 Pantoprazole Sodium (Protonix) 40 mg DAILYAC PO 01/23/22 07:30 02/09/22 11:01 Atorvastatin Calcium (Lipitor) 80 mg QHS PO 01/22/22 21:00 02/09/22 20:26 Acetaminophen (Tylenol) 650 mg PRN Q6HRS PRN PO MILD PAIN / TEMP > 100.3'F 01/22/22 16:45 02/02/22 09:31 Multi-Ingredient Ointment (Analgesic [place]) 1 [place] PRN QID PRN TP MUSCLE PAIN 01/22/22 16:45 Al Hydroxide/Mg Hydroxide (Mylanta Plus Xs) 15 ml PRN AFTMEALHC PRN PO DYSPEPSIA 01/22/22 16:45 Magnesium Hydroxide (Milk Of Magnesia) 2,400 mg PRN QHS PRN PO CONSTIPATION 01/22/22 16:45 02/09/22 20:27 Olanzapine (ZyPREXA) 2.5 mg PRN Q2HR PRN PO AGITATION 01/22/22 17:00 01/22/22 17:06 DC Olanzapine (ZyPREXA ZYDIS) 2.5 mg PRN Q2HRS PRN PO PSYCHOSIS 01/22/22 17:15 02/07/22 20:27 Trazodone HCl (Desyrel) 50 mg PRN QHS PRN PO insomnia 01/22/22 21:45 02/09/22 20:26 Trazodone HCl (Desyrel) 25 mg DAILY PO 01/23/22 15:30 01/23/22 16:22 DC 01/23/22 15:30 Trazodone HCl (Desyrel) 25 mg 0900,1300,1700 PO 01/23/22 17:00 02/08/22 10:24 DC 02/07/22 17:28 Sodium Chloride 1,000 ml @ 1,000 mls/hr 1X ONCE IV 01/23/22 17:15 01/23/22 18:14 DC 01/23/22 17:15 Mirtazapine (Remeron) 7.5 mg QHS PO 01/30/22 21:00 02/09/22 20:26 Divalproex Sodium (Depakote Sprinkles) 125 mg 0900,1700 PO 01/30/22 17:00 02/03/22 18:27 DC 02/03/22 16:07 Divalproex Sodium (Depakote Sprinkles) 125 mg 0900 PO 02/04/22 09:00 02/09/22 11:01 Divalproex Sodium (Depakote Sprinkles) 250 mg 1700 PO 02/04/22 17:00 02/09/22 17:00 Trazodone HCl (Desyrel) 25 mg 1X ONCE PO 02/04/22 09:00 02/04/22 09:01 DC Melatonin (Melatonin) 3 mg QHS PO 02/06/22 21:00 02/09/22 20:26 Trazodone HCl (Desyrel) 25 mg 1700 PO 02/08/22 17:00 02/09/22 17:00 Sertraline HCl (Zoloft) 25 mg DAILY PO 02/09/22 09:00 02/11/22 23:50 02/09/22 11:03 Sertraline HCl (Zoloft) 50 mg DAILY PO 02/12/22 09:00 Current Medications Medications (Trade) Dose Ordered Sig/Leoncio Route PRN Reason Start Time Stop Time Status Last Admin Dose Admin Sertraline HCl (Zoloft) 25 mg DAILY PO 02/09/22 09:00 02/11/22 23:50 02/09/22 11:03 I have reviewed the current psychotropics carefully including drug interactions. Risk benefit ratio favors no change other than as noted in my dictated progress note. Diagnosis: Problems: (1) Impulse control disorder, unspecified (2) Anxiety disorder, unspecified (3) Dementia, vascular, with depression (4) Dementia, vascular, with delusions (5) Dementia in Alzheimer's disease with depression (6) Dementia in Alzheimer's disease with delusions (7) Dementia of the Alzheimer's type with early onset with behavioral disturbance (8) Major neurocognitive disorder SANCHEZ JEAN MD Feb 09, 2022 21:54
[2022-02-10 06:06] VITALS: BP 122/70
[2022-02-10] MEDS: DIVALPROEX 125 MG CAP.SPRINK PO SCH ×2 (08:01→16:55)
[2022-02-10] MEDS: METOPROLOL TART IMMED RELEASE 25 MG TABLET. PO SCH ×2 (08:01→20:02)
[2022-02-10] MEDS: LISINOPRIL 10 MG TABLET PO SCH (08:01)
[2022-02-10] MEDS: CETIRIZINE HCL 10 MG TABLET PO SCH (08:01)
[2022-02-10] MEDS: ASPIRIN ENTERIC COATED 81 MG TABLET.DR. PO SCH (08:01)
[2022-02-10] MEDS: PANTOPRAZOLE 40 MG TABLET. PO SCH (08:01)
[2022-02-10] MEDS: SERTRALINE 25 MG TABLET. PO SCH (08:02)
[2022-02-10] MEDS: MIRABEGRON 25 MG TAB.ER.24H PO SCH (08:02)
--- NOTE | 2022-02-10 09:58 | PDOC ---
Exam Note: Bernard Note: This note is a late entry for 02/07/2022 covers elements not covered in my initial note. Subjective: The patient was seen individually on 02/07/2022, discussed and reviewed the chart with Jenny MONTALVO. The patient slept 7-1/4 hours previous night. Valproic acid level is 40. I met with him in the evening. Previous night he was checking doors, somewhat restless, agitated. Received Xanax, slept well till noon. Review of Systems: No CV, , pulmonary, eye, ENT system symptoms on review. Reliability poor. He is somewhat sedated at times. Mental Status Exam: The patient is oriented to himself. Insight and judgment, recent and remote memory, attention and concentration, fund of knowledge is poor consistent with his diagnoses. Laboratory Data: Reviewed. Impression: Major neurocognitive disorder, early Alzheimer, vascular with delusion, depression, behavioral disturbance. Anxiety disorder unspecified. Impulse control disorder unspecified. Plan: Continue psychotropics from initial note. If he remains sedated during the day, we might reduce the scheduled trazodone in the daytime. We may consider adding an SSRI for his mood/anxiety symptoms. Even though valproic acid level is subtherapeutic, clinically it is adequate for now and increasing it further might impair his ambulation and sedation. Behaviorally he is a little easier to redirect. We will continue to adjust as clinically indicated. Assessment: Vital Signs/I&O: Vital Signs Date Time Temp Pulse Resp B/P (MAP) Pulse Ox O2 Delivery O2 Flow Rate FiO2 02/10/22 08:01 60 122/70 02/10/22 06:06 98.1 16 98 02/09/22 06:20 Room Air I & O 02/09/22 02/09/22 02/10/22 15:00 23:00 07:00 Intake Total 240 ml 120 ml Balance 240 ml 120 ml Current Medications: I have reviewed the current psychotropics carefully including drug interactions. Risk benefit ratio favors no change other than as noted in my dictated progress note. Diagnosis: Problems: (1) Impulse control disorder, unspecified (2) Anxiety disorder, unspecified (3) Dementia, vascular, with depression (4) Dementia, vascular, with delusions (5) Dementia in Alzheimer's disease with depression (6) Dementia in Alzheimer's disease with delusions (7) Dementia of the Alzheimer's type with early onset with behavioral disturbance (8) Major neurocognitive disorder SANCHEZ JEAN MD Feb 10, 2022 09:58
--- NOTE | 2022-02-10 10:09 | PDOC ---
Exam Note: Bernard Note: This note is a late entry for 02/08/2022 covers elements not covered in my initial note. Subjective: The patient was reviewed at treatment team meeting individually in the morning on 02/08/2022 with Shanon Rao, Deana Quintana, and Nicole Harris (health social work professor), Armida, activity therapy, and Agnes RN, discussed and reviewed the chart. The patient slept 5-3/4 hours previous night. His Elena attended the meeting as well. The patient remains confused, somewhat impulsive, cooperative with cares. Appetite is poor at 25%. Average sleep 5 hours. He has had some constipation. Received milk of magnesium since he has not had a bowel movement for 2 days. He attended 4 groups in the past one week. We had lengthy discussion with the patients about his diagnoses, the challenge he proposed if she decides to have him return home. She was quite tearful but has been working with social service staff and seems more realistic and pursuing her Medicaid application to assist with fpc placement. Discussed his psychotropics and risk-benefit ratio. Review of Systems: No CV, , pulmonary, eye, ENT system symptoms on review. Reliability poor. Mental Status Exam: The patient is oriented to himself. Insight and judgment, recent and remote memory, attention and concentration, fund of knowledge is poor consistent with his diagnoses. Laboratory Data: Reviewed. Impression: Major neurocognitive disorder, early Alzheimer, vascular with delusion, depression, behavioral disturbance. Anxiety disorder unspecified. Impulse control disorder unspecified. Plan: We will continue to adjust his psychotropics. As noted previously Zoloft was initiated 25 mg a day for 3 days, then 50 mg a day and daytime trazodone 9 a.m. and 1 p.m. will be stopped because of his daytime sedation. Maintain trazodone 25 mg at 5 p.m. Maintain Depakote Sprinkle 125 mg twice a day, melatonin 3 mg h.s., Remeron 7.5 mg h.s. We will make further adjustments as clinically indicated. Assessment: Vital Signs/I&O: Vital Signs Date Time Temp Pulse Resp B/P (MAP) Pulse Ox O2 Delivery O2 Flow Rate FiO2 02/10/22 08:01 60 122/70 02/10/22 06:06 98.1 16 98 02/09/22 06:20 Room Air I & O 02/09/22 02/09/22 02/10/22 15:00 23:00 07:00 Intake Total 240 ml 120 ml Balance 240 ml 120 ml Current Medications: I have reviewed the current psychotropics carefully including drug interactions. Risk benefit ratio favors no change other than as noted in my dictated progress note. Diagnosis: Problems: (1) Impulse control disorder, unspecified (2) Anxiety disorder, unspecified (3) Dementia, vascular, with depression (4) Dementia, vascular, with delusions (5) Dementia in Alzheimer's disease with depression (6) Dementia in Alzheimer's disease with delusions (7) Dementia of the Alzheimer's type with early onset with behavioral disturbance (8) Major neurocognitive disorder SANCHEZ JEAN MD Feb 10, 2022 10:09
--- NOTE | 2022-02-10 10:22 | PDOC ---
Exam Note: Bernard Note: This note is a late entry for 02/09/2022 covers elements not covered in my initial note. Subjective: The patient was seen individually on 02/09/2022, discussed and reviewed the chart with Silvia MONTALVO. The patient slept 6 hours previous night. Appetite 25%. He is less sedated since we have reduced trazodone today. He is still going into other patients rooms but redirects. Review of Systems: No CV, , pulmonary, eye, ENT system symptoms on review. Reliability poor. Mental Status Exam: The patient is oriented to himself. Insight and judgment, recent and remote memory, attention and concentration, fund of knowledge is poor consistent with his diagnoses. Laboratory Data: Reviewed. Impression: Major neurocognitive disorder, early Alzheimer, vascular with delusion, depression, behavioral disturbance. Anxiety disorder unspecified. Impulse control disorder unspecified. Plan: We will continue to adjust his psychotropics. Keep the scheduled trazodone at low dosage. During the individual visit I was asking him about his Elena but he seemed to have no response and then seemed to recognize his wifes name either. Assessment: Vital Signs/I&O: Vital Signs Date Time Temp Pulse Resp B/P (MAP) Pulse Ox O2 Delivery O2 Flow Rate FiO2 02/10/22 08:01 60 122/70 02/10/22 06:06 98.1 16 98 02/09/22 06:20 Room Air I & O 02/09/22 02/09/22 02/10/22 15:00 23:00 07:00 Intake Total 240 ml 120 ml Balance 240 ml 120 ml Current Medications: I have reviewed the current psychotropics carefully including drug interactions. Risk benefit ratio favors no change other than as noted in my dictated progress note. Diagnosis: Problems: (1) Impulse control disorder, unspecified (2) Anxiety disorder, unspecified (3) Dementia, vascular, with depression (4) Dementia, vascular, with delusions (5) Dementia in Alzheimer's disease with depression (6) Dementia in Alzheimer's disease with delusions (7) Dementia of the Alzheimer's type with early onset with behavioral disturbance (8) Major neurocognitive disorder SANCHEZ JEAN MD Feb 10, 2022 10:22
[2022-02-10 15:32] VITALS: BP 127/64
[2022-02-10] MEDS: traZODone 50 MG TABLET. PO SCH (16:56)
[2022-02-10] MEDS: traZODone 50 MG TABLET. PO PRN (20:02)
[2022-02-10] MEDS: MIRTAZAPINE 7.5 MG TABLET. PO SCH (20:03)
[2022-02-10] MEDS: ATORVASTATIN CALCIUM 20 MG TABLET PO SCH (20:03)
[2022-02-10] MEDS: MELATONIN 3 MG TABLET PO SCH (20:04)
[2022-02-10] MEDS: MAGNESIUM HYDROXIDE 2,400 MG/30 ML ORAL.SUSP. PO PRN (20:04)
[2022-02-10] MEDS ORDERED: MAGNESIUM CITRATE 296 ML SOLUTION. PO PRN (21:15)
--- NOTE | 2022-02-10 21:58 | PDOC ---
Exam Note: Bernard Note: Please also refer to the separate dictated note~for this date of service dictated separately.~Patient seen individually. Discussed the patient with Nursing staff reviewed the chart.~Reviewed interim history and current functioning. Reviewed vital signs,~Labs/ Radiology~and current medications noted below. Continue current treatment with the changes noted in the dictated addendum note Assessment: Vital Signs/I&O: Vital Signs Date Time Temp Pulse Resp B/P (MAP) Pulse Ox O2 Delivery O2 Flow Rate FiO2 02/10/22 20:02 72 127/64 02/10/22 15:32 97.8 20 97 02/09/22 06:20 Room Air I & O 02/09/22 02/09/22 02/10/22 14:59 22:59 06:59 Intake Total 240 ml 120 ml Balance 240 ml 120 ml Current Medications: Meds: Current Medications Medications (Trade) Dose Ordered Sig/Leoncio Route PRN Reason Start Time Stop Time Status Last Admin Dose Admin Alprazolam (Xanax) 0.25 mg PRN QHS PRN PO ANXIETY / AGITATION 01/22/22 16:30 02/06/22 20:43 Aspirin (Aspirin Enteric Coated) 81 mg DAILY PO 01/23/22 09:00 02/10/22 08:01 Donepezil HCl (Aricept) 10 mg QHS PO 01/22/22 21:00 01/24/22 16:39 DC 01/23/22 21:36 Haloperidol (Haldol) 0.5 mg PRN TID PRN PO AGITATION 01/22/22 16:30 01/22/22 16:57 DC 01/22/22 16:29 Memantine (Namenda) 10 mg BID PO 01/22/22 21:00 01/24/22 16:38 DC 01/24/22 09:00 Metoprolol Tartrate (Lopressor) 25 mg BID PO 01/22/22 21:00 02/10/22 20:02 Lisinopril (Prinivil) 10 mg DAILY PO 01/23/22 09:00 02/10/22 08:01 Cetirizine HCl (ZyrTEC) 10 mg DAILY PO 01/23/22 09:00 02/10/22 08:01 Mirabegron (Myrbetriq) 50 mg DAILY PO 01/23/22 09:00 02/10/22 08:02 Pantoprazole Sodium (Protonix) 40 mg DAILYAC PO 01/23/22 07:30 02/10/22 08:01 Atorvastatin Calcium (Lipitor) 80 mg QHS PO 01/22/22 21:00 02/10/22 20:03 Acetaminophen (Tylenol) 650 mg PRN Q6HRS PRN PO MILD PAIN / TEMP > 100.3'F 01/22/22 16:45 02/02/22 09:31 Multi-Ingredient Ointment (Analgesic [place]) 1 [place] PRN QID PRN TP MUSCLE PAIN 01/22/22 16:45 Al Hydroxide/Mg Hydroxide (Mylanta Plus Xs) 15 ml PRN AFTMEALHC PRN PO DYSPEPSIA 01/22/22 16:45 Magnesium Hydroxide (Milk Of Magnesia) 2,400 mg PRN QHS PRN PO CONSTIPATION 01/22/22 16:45 02/10/22 20:04 Olanzapine (ZyPREXA) 2.5 mg PRN Q2HR PRN PO AGITATION 01/22/22 17:00 01/22/22 17:06 DC Olanzapine (ZyPREXA ZYDIS) 2.5 mg PRN Q2HRS PRN PO PSYCHOSIS 01/22/22 17:15 02/07/22 20:27 Trazodone HCl (Desyrel) 50 mg PRN QHS PRN PO insomnia 01/22/22 21:45 02/10/22 20:02 Trazodone HCl (Desyrel) 25 mg DAILY PO 01/23/22 15:30 01/23/22 16:22 DC 01/23/22 15:30 Trazodone HCl (Desyrel) 25 mg 0900,1300,1700 PO 01/23/22 17:00 02/08/22 10:24 DC 02/07/22 17:28 Sodium Chloride 1,000 ml @ 1,000 mls/hr 1X ONCE IV 01/23/22 17:15 01/23/22 18:14 DC 01/23/22 17:15 Mirtazapine (Remeron) 7.5 mg QHS PO 01/30/22 21:00 02/10/22 20:03 Divalproex Sodium (Depakote Sprinkles) 125 mg 0900,1700 PO 01/30/22 17:00 02/03/22 18:27 DC 02/03/22 16:07 Divalproex Sodium (Depakote Sprinkles) 125 mg 0900 PO 02/04/22 09:00 02/10/22 08:01 Divalproex Sodium (Depakote Sprinkles) 250 mg 1700 PO 02/04/22 17:00 02/10/22 16:55 Trazodone HCl (Desyrel) 25 mg 1X ONCE PO 02/04/22 09:00 02/04/22 09:01 DC Melatonin (Melatonin) 3 mg QHS PO 02/06/22 21:00 02/10/22 20:04 Trazodone HCl (Desyrel) 25 mg 1700 PO 02/08/22 17:00 02/10/22 16:56 Sertraline HCl (Zoloft) 25 mg DAILY PO 02/09/22 09:00 02/11/22 23:50 02/10/22 08:02 Sertraline HCl (Zoloft) 50 mg DAILY PO 02/12/22 09:00 Magnesium Citrate (Citroma) 296 ml PRN 1X PRN PO CONSTIPATION 02/10/22 21:15 Docusate Sodium (Colace) 100 mg BID PO 02/11/22 09:00 I have reviewed the current psychotropics carefully including drug interactions. Risk benefit ratio favors no change other than as noted in my dictated progress note. Diagnosis: Problems: (1) Impulse control disorder, unspecified (2) Anxiety disorder, unspecified (3) Dementia, vascular, with depression (4) Dementia, vascular, with delusions (5) Dementia in Alzheimer's disease with depression (6) Dementia in Alzheimer's disease with delusions (7) Dementia of the Alzheimer's type with early onset with behavioral disturbance (8) Major neurocognitive disorder SANCHEZ JEAN MD Feb 10, 2022 21:58
[2022-02-11 06:11] VITALS: BP 131/76
[2022-02-11] MEDS ORDERED: DOCUSATE 100 MG/10 ML SOLUTION. PO PRN (07:45)
[2022-02-11] MEDS: METOPROLOL TART IMMED RELEASE 25 MG TABLET. PO SCH ×2 (08:54→19:55)
[2022-02-11] MEDS: CETIRIZINE HCL 10 MG TABLET PO SCH (08:54)
[2022-02-11] MEDS: MIRABEGRON 25 MG TAB.ER.24H PO SCH (08:54)
[2022-02-11] MEDS: DIVALPROEX 125 MG CAP.SPRINK PO SCH ×2 (08:54→17:17)
[2022-02-11] MEDS: PANTOPRAZOLE 40 MG TABLET. PO SCH (08:54)
[2022-02-11] MEDS: SERTRALINE 25 MG TABLET. PO SCH (08:54)
[2022-02-11] MEDS: LISINOPRIL 10 MG TABLET PO SCH (08:54)
[2022-02-11] MEDS: ASPIRIN ENTERIC COATED 81 MG TABLET.DR. PO SCH (08:54)
[2022-02-11] MEDS ORDERED: DOCUSATE SODIUM 100 MG CAPSULE PO SCH (09:00)
[2022-02-11 15:50] VITALS: BP 108/62
[2022-02-11] MEDS: traZODone 50 MG TABLET. PO SCH (17:17)
[2022-02-11] MEDS: ATORVASTATIN CALCIUM 20 MG TABLET PO SCH (19:54)
[2022-02-11] MEDS: MELATONIN 3 MG TABLET PO SCH (19:54)
[2022-02-11] MEDS: MIRTAZAPINE 7.5 MG TABLET. PO SCH (19:54)
[2022-02-11] MEDS: traZODone 50 MG TABLET. PO PRN (19:59)
[2022-02-11 21:14] LABS: CLARITY,URINE CLOUDY; COLOR,URINE YELLOW; GLUCOSE,URINE NEG (NEG); NITRITE,URINE NEG (NEG); UROBILINOGEN,URINE 0.2 mg/dL (0.2 mg/dL)
[2022-02-11 21:15] LABS: AMORPHOUS SEDIMENT,UR PRESENT /HPF; BACTERIA,URINE MOD /HPF (0-FEW); RBC,URINE 0 /HPF (0-2)
--- NOTE | 2022-02-11 21:56 | PDOC ---
Exam Note: Bernard Note: Please also refer to the separate dictated note~for this date of service dictated separately.~Patient seen individually. Discussed the patient with Nursing staff reviewed the chart.~Reviewed interim history and current functioning. Reviewed vital signs,~Labs/ Radiology~and current medications noted below. Continue current treatment with the changes noted in the dictated addendum note Assessment: Vital Signs/I&O: Vital Signs Date Time Temp Pulse Resp B/P (MAP) Pulse Ox O2 Delivery O2 Flow Rate FiO2 02/11/22 19:55 50 143/83 02/11/22 15:50 98.0 20 97 02/09/22 06:20 Room Air I & O 02/10/22 02/10/22 02/11/22 15:00 23:00 07:00 Intake Total 360 ml 300 ml Balance 360 ml 300 ml Labs: Laboratory Tests Test 02/11/22 20:55 Urine Collection Type Clean catch Urine Color Yellow Urine Clarity Cloudy Urine pH 6.5 Urine Specific [place] >=1.030 Urine Protein Trace (NEG-TRACE) Urine Glucose (UA) Neg mg/dL (NEG) Urine Ketones (Stick) Neg mg/dL (NEG) Urine Blood Neg (NEG) Urine Nitrite Neg (NEG) Urine Bilirubin Neg (NEG) Urine Urobilinogen Dipstick 0.2 mg/dL (0.2 mg/dL) Urine Leukocyte Esterase Trace (NEG) Urine RBC 0 /HPF (0-2) Urine WBC 11-20 /HPF (0-4) Urine Squamous Epithelial Cells None /LPF Urine Amorphous Sediment Present /HPF Urine Bacteria Mod /HPF (0-FEW) Current Medications: Meds: Laboratory Tests Test 02/11/22 20:55 Urine Collection Type Clean catch Urine Color Yellow Urine Clarity Cloudy Urine pH 6.5 Urine Specific [place] >=1.030 Urine Protein Trace Urine Glucose (UA) Neg mg/dL Urine Ketones (Stick) Neg mg/dL Urine Blood Neg Urine Nitrite Neg Urine Bilirubin Neg Urine Urobilinogen Dipstick 0.2 mg/dL Urine Leukocyte Esterase Trace Urine RBC 0 /HPF Urine WBC 11-20 /HPF Urine Squamous Epithelial Cells None /LPF Urine Amorphous Sediment Present /HPF Urine Bacteria Mod /HPF Current Medications Medications (Trade) Dose Ordered Sig/Leoncio Route PRN Reason Start Time Stop Time Status Last Admin Dose Admin Alprazolam (Xanax) 0.25 mg PRN QHS PRN PO ANXIETY / AGITATION 01/22/22 16:30 02/06/22 20:43 Aspirin (Aspirin Enteric Coated) 81 mg DAILY PO 01/23/22 09:00 02/11/22 14:16 DC 02/11/22 08:54 Donepezil HCl (Aricept) 10 mg QHS PO 01/22/22 21:00 01/24/22 16:39 DC 01/23/22 21:36 Haloperidol (Haldol) 0.5 mg PRN TID PRN PO AGITATION 01/22/22 16:30 01/22/22 16:57 DC 01/22/22 16:29 Memantine (Namenda) 10 mg BID PO 01/22/22 21:00 01/24/22 16:38 DC 01/24/22 09:00 Metoprolol Tartrate (Lopressor) 25 mg BID PO 01/22/22 21:00 02/11/22 08:54 Lisinopril (Prinivil) 10 mg DAILY PO 01/23/22 09:00 02/11/22 08:54 Cetirizine HCl (ZyrTEC) 10 mg DAILY PO 01/23/22 09:00 02/11/22 08:54 Mirabegron (Myrbetriq) 50 mg DAILY PO 01/23/22 09:00 02/11/22 08:54 Pantoprazole Sodium (Protonix) 40 mg DAILYAC PO 01/23/22 07:30 02/11/22 08:54 Atorvastatin Calcium (Lipitor) 80 mg QHS PO 01/22/22 21:00 02/11/22 19:54 Acetaminophen (Tylenol) 650 mg PRN Q6HRS PRN PO MILD PAIN / TEMP > 100.3'F 01/22/22 16:45 02/02/22 09:31 Multi-Ingredient Ointment (Analgesic [place]) 1 [place] PRN QID PRN TP MUSCLE PAIN 01/22/22 16:45 Al Hydroxide/Mg Hydroxide (Mylanta Plus Xs) 15 ml PRN AFTMEALHC PRN PO DYSPEPSIA 01/22/22 16:45 Magnesium Hydroxide (Milk Of Magnesia) 2,400 mg PRN QHS PRN PO CONSTIPATION 01/22/22 16:45 02/10/22 20:04 Olanzapine (ZyPREXA) 2.5 mg PRN Q2HR PRN PO AGITATION 01/22/22 17:00 01/22/22 17:06 DC Olanzapine (ZyPREXA ZYDIS) 2.5 mg PRN Q2HRS PRN PO PSYCHOSIS 01/22/22 17:15 02/07/22 20:27 Trazodone HCl (Desyrel) 50 mg PRN QHS PRN PO insomnia 01/22/22 21:45 02/11/22 19:59 Trazodone HCl (Desyrel) 25 mg DAILY PO 01/23/22 15:30 01/23/22 16:22 DC 01/23/22 15:30 Trazodone HCl (Desyrel) 25 mg 0900,1300,1700 PO 01/23/22 17:00 02/08/22 10:24 DC 02/07/22 17:28 Sodium Chloride 1,000 ml @ 1,000 mls/hr 1X ONCE IV 01/23/22 17:15 01/23/22 18:14 DC 01/23/22 17:15 Mirtazapine (Remeron) 7.5 mg QHS PO 01/30/22 21:00 02/11/22 19:54 Divalproex Sodium (Depakote Sprinkles) 125 mg 0900,1700 PO 01/30/22 17:00 02/03/22 18:27 DC 02/03/22 16:07 Divalproex Sodium (Depakote Sprinkles) 125 mg 0900 PO 02/04/22 09:00 02/11/22 20:41 DC 02/11/22 08:54 Divalproex Sodium (Depakote Sprinkles) 250 mg 1700 PO 02/04/22 17:00 02/11/22 20:41 DC 02/11/22 17:17 Trazodone HCl (Desyrel) 25 mg 1X ONCE PO 02/04/22 09:00 02/04/22 09:01 DC Melatonin (Melatonin) 3 mg QHS PO 02/06/22 21:00 02/11/22 19:54 Trazodone HCl (Desyrel) 25 mg 1700 PO 02/08/22 17:00 02/11/22 17:17 Sertraline HCl (Zoloft) 25 mg DAILY PO 02/09/22 09:00 02/11/22 23:50 02/11/22 08:54 Sertraline HCl (Zoloft) 50 mg DAILY PO 02/12/22 09:00 Magnesium Citrate (Citroma) 296 ml PRN 1X PRN PO CONSTIPATION 02/10/22 21:15 02/11/22 12:47 Docusate Sodium (Colace) 100 mg BID PO 02/11/22 09:00 02/11/22 07:44 DC Docusate Sodium (Colace Solution) 100 mg PRN BID PRN PO HARD STOOLS 02/11/22 07:45 02/11/22 08:50 DC Docusate Sodium (Colace Solution) 100 mg BID PO 02/12/22 09:00 Aspirin (Aspirin Chewable) 81 mg DAILYWBKFT PO 02/12/22 08:00 Divalproex Sodium (Depakote Sprinkles) 250 mg DAILY PO 02/12/22 09:00 Divalproex Sodium (Depakote Sprinkles) 375 mg DAILYWSUP PO 02/12/22 17:00 I have reviewed the current psychotropics carefully including drug interactions. Risk benefit ratio favors no change other than as noted in my dictated progress note. Diagnosis: Problems: (1) Impulse control disorder, unspecified (2) Anxiety disorder, unspecified (3) Dementia, vascular, with depression (4) Dementia, vascular, with delusions (5) Dementia in Alzheimer's disease with depression (6) Dementia in Alzheimer's disease with delusions (7) Dementia of the Alzheimer's type with early onset with behavioral disturbance (8) Major neurocognitive disorder SANCHEZ JEAN MD Feb 11, 2022 21:56
[2022-02-12 06:30] VITALS: BP 110/56
[2022-02-12] MEDS: PANTOPRAZOLE 40 MG TABLET. PO SCH (07:30)
[2022-02-12] MEDS: ASPIRIN CHEWABLE 81 MG TABLET. PO SCH (08:00)
[2022-02-12] MEDS: DIVALPROEX 125 MG CAP.SPRINK PO SCH ×2 (09:00→17:06)
[2022-02-12] MEDS: METOPROLOL TART IMMED RELEASE 25 MG TABLET. PO SCH ×2 (09:00→19:52)
[2022-02-12] MEDS: CETIRIZINE HCL 10 MG TABLET PO SCH (09:00)
[2022-02-12] MEDS: LISINOPRIL 10 MG TABLET PO SCH (09:00)
[2022-02-12] MEDS: DOCUSATE 100 MG/10 ML SOLUTION. PO SCH ×2 (09:00→19:50)
[2022-02-12] MEDS: MIRABEGRON 25 MG TAB.ER.24H PO SCH (09:00)
[2022-02-12] MEDS: SERTRALINE 25 MG TABLET. PO SCH (09:00)
[2022-02-12 15:58] VITALS: BP 107/68
[2022-02-12] MEDS: traZODone 50 MG TABLET. PO SCH (17:06)
[2022-02-12] MEDS: MELATONIN 3 MG TABLET PO SCH (19:51)
[2022-02-12] MEDS: MIRTAZAPINE 7.5 MG TABLET. PO SCH (19:51)
[2022-02-12] MEDS: ATORVASTATIN CALCIUM 20 MG TABLET PO SCH (19:51)
[2022-02-12] MEDS: traZODone 50 MG TABLET. PO PRN (19:53)
--- NOTE | 2022-02-12 21:55 | PDOC ---
Exam Note: Bernard Note: Please also refer to the separate dictated note~for this date of service dictated separately.~Patient seen individually. Discussed the patient with Nursing staff reviewed the chart.~Reviewed interim history and current functioning. Reviewed vital signs,~Labs/ Radiology~and current medications noted below. Continue current treatment with the changes noted in the dictated addendum note Assessment: Vital Signs/I&O: Vital Signs Date Time Temp Pulse Resp B/P (MAP) Pulse Ox O2 Delivery O2 Flow Rate FiO2 02/12/22 19:52 119 131/55 02/12/22 15:58 97.2 18 94 Room Air I & O 02/11/22 02/11/22 02/12/22 15:00 23:00 07:00 Intake Total 240 ml 480 ml Balance 240 ml 480 ml Current Medications: Meds: Current Medications Medications (Trade) Dose Ordered Sig/Leoncio Route PRN Reason Start Time Stop Time Status Last Admin Dose Admin Alprazolam (Xanax) 0.25 mg PRN QHS PRN PO ANXIETY / AGITATION 01/22/22 16:30 02/06/22 20:43 Aspirin (Aspirin Enteric Coated) 81 mg DAILY PO 01/23/22 09:00 02/11/22 14:16 DC 02/11/22 08:54 Donepezil HCl (Aricept) 10 mg QHS PO 01/22/22 21:00 01/24/22 16:39 DC 01/23/22 21:36 Haloperidol (Haldol) 0.5 mg PRN TID PRN PO AGITATION 01/22/22 16:30 01/22/22 16:57 DC 01/22/22 16:29 Memantine (Namenda) 10 mg BID PO 01/22/22 21:00 01/24/22 16:38 DC 01/24/22 09:00 Metoprolol Tartrate (Lopressor) 25 mg BID PO 01/22/22 21:00 02/12/22 19:52 Lisinopril (Prinivil) 10 mg DAILY PO 01/23/22 09:00 02/12/22 09:00 Cetirizine HCl (ZyrTEC) 10 mg DAILY PO 01/23/22 09:00 02/12/22 09:00 Mirabegron (Myrbetriq) 50 mg DAILY PO 01/23/22 09:00 02/12/22 09:00 Pantoprazole Sodium (Protonix) 40 mg DAILYAC PO 01/23/22 07:30 02/12/22 07:30 Atorvastatin Calcium (Lipitor) 80 mg QHS PO 01/22/22 21:00 02/12/22 19:51 Acetaminophen (Tylenol) 650 mg PRN Q6HRS PRN PO MILD PAIN / TEMP > 100.3'F 01/22/22 16:45 02/02/22 09:31 Multi-Ingredient Ointment (Analgesic [place]) 1 [place] PRN QID PRN TP MUSCLE PAIN 01/22/22 16:45 Al Hydroxide/Mg Hydroxide (Mylanta Plus Xs) 15 ml PRN AFTMEALHC PRN PO DYSPEPSIA 01/22/22 16:45 Magnesium Hydroxide (Milk Of Magnesia) 2,400 mg PRN QHS PRN PO 1ST CHOICE CONSTIPATION 01/22/22 16:45 02/10/22 20:04 Olanzapine (ZyPREXA) 2.5 mg PRN Q2HR PRN PO AGITATION 01/22/22 17:00 01/22/22 17:06 DC Olanzapine (ZyPREXA ZYDIS) 2.5 mg PRN Q2HRS PRN PO PSYCHOSIS 01/22/22 17:15 02/07/22 20:27 Trazodone HCl (Desyrel) 50 mg PRN QHS PRN PO insomnia 01/22/22 21:45 02/12/22 19:53 Trazodone HCl (Desyrel) 25 mg DAILY PO 01/23/22 15:30 01/23/22 16:22 DC 01/23/22 15:30 Trazodone HCl (Desyrel) 25 mg 0900,1300,1700 PO 01/23/22 17:00 02/08/22 10:24 DC 02/07/22 17:28 Sodium Chloride 1,000 ml @ 1,000 mls/hr 1X ONCE IV 01/23/22 17:15 01/23/22 18:14 DC 01/23/22 17:15 Mirtazapine (Remeron) 7.5 mg QHS PO 01/30/22 21:00 02/12/22 19:51 Divalproex Sodium (Depakote Sprinkles) 125 mg 0900,1700 PO 01/30/22 17:00 02/03/22 18:27 DC 02/03/22 16:07 Divalproex Sodium (Depakote Sprinkles) 125 mg 0900 PO 02/04/22 09:00 02/11/22 20:41 DC 02/11/22 08:54 Divalproex Sodium (Depakote Sprinkles) 250 mg 1700 PO 02/04/22 17:00 02/11/22 20:41 DC 02/11/22 17:17 Trazodone HCl (Desyrel) 25 mg 1X ONCE PO 02/04/22 09:00 02/04/22 09:01 DC Melatonin (Melatonin) 3 mg QHS PO 02/06/22 21:00 02/12/22 19:51 Trazodone HCl (Desyrel) 25 mg 1700 PO 02/08/22 17:00 02/12/22 17:06 Sertraline HCl (Zoloft) 25 mg DAILY PO 02/09/22 09:00 02/11/22 23:50 DC 02/11/22 08:54 Sertraline HCl (Zoloft) 50 mg DAILY PO 02/12/22 09:00 02/12/22 09:00 Magnesium Citrate (Citroma) 296 ml PRN 1X PRN PO 2ND CHOICE CONSTIPATION 02/10/22 21:15 02/11/22 12:47 Docusate Sodium (Colace) 100 mg BID PO 02/11/22 09:00 02/11/22 07:44 DC Docusate Sodium (Colace Solution) 100 mg PRN BID PRN PO HARD STOOLS 02/11/22 07:45 02/11/22 08:50 DC Docusate Sodium (Colace Solution) 100 mg BID PO 02/12/22 09:00 Aspirin (Aspirin Chewable) 81 mg DAILYWBKFT PO 02/12/22 08:00 02/12/22 08:00 Divalproex Sodium (Depakote Sprinkles) 250 mg DAILY PO 02/12/22 09:00 02/12/22 09:00 Divalproex Sodium (Depakote Sprinkles) 375 mg DAILYWSUP PO 02/12/22 17:00 02/12/22 17:06 Current Medications Medications (Trade) Dose Ordered Sig/Leoncio Route PRN Reason Start Time Stop Time Status Last Admin Dose Admin Sertraline HCl (Zoloft) 50 mg DAILY PO 02/12/22 09:00 02/12/22 09:00 Aspirin (Aspirin Chewable) 81 mg DAILYWBKFT PO 02/12/22 08:00 02/12/22 08:00 Divalproex Sodium (Depakote Sprinkles) 250 mg DAILY PO 02/12/22 09:00 02/12/22 09:00 Divalproex Sodium (Depakote Sprinkles) 375 mg DAILYWSUP PO 02/12/22 17:00 02/12/22 17:06 I have reviewed the current psychotropics carefully including drug interactions. Risk benefit ratio favors no change other than as noted in my dictated progress note. Diagnosis: Problems: (1) Impulse control disorder, unspecified (2) Anxiety disorder, unspecified (3) Dementia, vascular, with depression (4) Dementia, vascular, with delusions (5) Dementia in Alzheimer's disease with depression (6) Dementia in Alzheimer's disease with delusions (7) Dementia of the Alzheimer's type with early onset with behavioral disturbance (8) Major neurocognitive disorder SANCHEZ JEAN MD Feb 12, 2022 21:55
[2022-02-13 06:00] VITALS: BP 166/72
[2022-02-13] MEDS: METOPROLOL TART IMMED RELEASE 25 MG TABLET. PO SCH ×2 (08:03→19:53)
[2022-02-13] MEDS: MIRABEGRON 25 MG TAB.ER.24H PO SCH (08:03)
[2022-02-13] MEDS: LISINOPRIL 10 MG TABLET PO SCH (08:03)
[2022-02-13] MEDS: ASPIRIN CHEWABLE 81 MG TABLET. PO SCH (08:04)
[2022-02-13] MEDS: CETIRIZINE HCL 10 MG TABLET PO SCH (08:04)
[2022-02-13] MEDS: SERTRALINE 25 MG TABLET. PO SCH (08:04)
[2022-02-13] MEDS: PANTOPRAZOLE 40 MG TABLET. PO SCH (08:04)
[2022-02-13] MEDS: DIVALPROEX 125 MG CAP.SPRINK PO SCH ×2 (08:04→17:13)
[2022-02-13] MEDS: DOCUSATE 100 MG/10 ML SOLUTION. PO SCH ×2 (08:14→19:53)
--- NOTE | 2022-02-13 09:09 | PDOC ---
Exam Note: Bernard Note: This note is a late entry for 02/10/2022 covers elements not covered in my initial note. Subjective: The patient was seen individually on 02/10/2022, discussed and reviewed the chart with Nneka MONTALVO. The patient slept 6-1/4 hours previous night. He remains confused, wandering in and out of the room of other patients. He has not had a bowel movement for a couple of days. We will start magnesium citrate p.r.n., and Colace 100 mg twice a day. UA has reflex to culture, results awaited. He does better if he is approached by one person at a time. At times he was shadow boxing but not aggressive. Review of Systems: No CV, , pulmonary, eye, ENT system symptoms on review. Reliability poor. Mental Status Exam: The patient is oriented to himself. Insight and judgment, recent and remote memory, attention and concentration, fund of knowledge is poor consistent with his diagnoses. Laboratory Data: Reviewed. Impression: Major neurocognitive disorder, early Alzheimer, vascular with delusion, depression, behavioral disturbance. Anxiety disorder unspecified. Im pulse control disorder unspecified. Plan: We will continue to adjust his psychotropics. Reviewed drug interactions, risk-benefit ratio which favors no further change today but we will continue to assess this. Assessment: Vital Signs/I&O: Vital Signs Date Time Temp Pulse Resp B/P (MAP) Pulse Ox O2 Delivery O2 Flow Rate FiO2 02/13/22 08:03 60 166/72 02/13/22 06:00 97.4 14 96 02/12/22 15:58 Room Air I & O 0 02/12/22 02/12/22 02/13/22 15:00 23:00 07:00 Intake Total 480 ml 480 ml Balance 480 ml 480 ml Current Medications: Meds: Current Medications Medications (Trade) Dose Ordered Sig/Leoncio Route PRN Reason Start Time Stop Time Status Last Admin Dose Admin Divalproex Sodium (Depakote Sprinkles) 375 mg DAILYWSUP PO 02/12/22 17:00 02/12/22 17:06 I have reviewed the current psychotropics carefully including drug interactions. Risk benefit ratio favors no change other than as noted in my dictated progress note. Diagnosis: Problems: (1) Impulse control disorder, unspecified (2) Anxiety disorder, unspecified (3) Dementia, vascular, with depression (4) Dementia, vascular, with delusions (5) Dementia in Alzheimer's disease with depression (6) Dementia in Alzheimer's disease with delusions (7) Dementia of the Alzheimer's type with early onset with behavioral disturbance (8) Major neurocognitive disorder SANCHEZ JEAN MD Feb 13, 2022 09:09
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
[2022-02-13 15:54] VITALS: BP 129/79
[2022-02-13] MEDS: traZODone 50 MG TABLET. PO SCH (17:10)
[2022-02-13] MEDS: MELATONIN 3 MG TABLET PO SCH (19:52)
[2022-02-13] MEDS: ATORVASTATIN CALCIUM 20 MG TABLET PO SCH (19:52)
[2022-02-13] MEDS: MIRTAZAPINE 7.5 MG TABLET. PO SCH (19:52)
[2022-02-13] MEDS: traZODone 50 MG TABLET. PO PRN (19:52)
--- NOTE | 2022-02-13 21:51 | PDOC ---
Exam Note: Bernard Note: Please also refer to the separate dictated note~for this date of service dictated separately.~Patient seen individually. Discussed the patient with Nursing staff reviewed the chart.~Reviewed interim history and current functioning. Reviewed vital signs,~Labs/ Radiology~and current medications noted below. Continue current treatment with the changes noted in the dictated addendum note Assessment: Vital Signs/I&O: Vital Signs Date Time Temp Pulse Resp B/P (MAP) Pulse Ox O2 Delivery O2 Flow Rate FiO2 02/13/22 19:53 78 129/79 02/13/22 15:54 98.6 18 96 Room Air I & O 02/12/22 02/12/22 02/13/22 15:00 23:00 07:00 Intake Total 480 ml 480 ml Balance 480 ml 480 ml Labs: Laboratory Tests Test 02/13/22 09:13 POC SARS CoV-2 Antigen Negative (NEGATIVE) Current Medications: Meds: Laboratory Tests Test 02/13/22 09:13 POC SARS CoV-2 Antigen Negative Current Medications Medications (Trade) Dose Ordered Sig/Leoncio Route PRN Reason Start Time Stop Time Status Last Admin Dose Admin Alprazolam (Xanax) 0.25 mg PRN QHS PRN PO ANXIETY / AGITATION 01/22/22 16:30 02/06/22 20:43 Aspirin (Aspirin Enteric Coated) 81 mg DAILY PO 01/23/22 09:00 02/11/22 14:16 DC 02/11/22 08:54 Donepezil HCl (Aricept) 10 mg QHS PO 01/22/22 21:00 01/24/22 16:39 DC 01/23/22 21:36 Haloperidol (Haldol) 0.5 mg PRN TID PRN PO AGITATION 01/22/22 16:30 01/22/22 16:57 DC 01/22/22 16:29 Memantine (Namenda) 10 mg BID PO 01/22/22 21:00 01/24/22 16:38 DC 01/24/22 09:00 Metoprolol Tartrate (Lopressor) 25 mg BID PO 01/22/22 21:00 02/13/22 19:53 Lisinopril (Prinivil) 10 mg DAILY PO 01/23/22 09:00 02/13/22 08:03 Cetirizine HCl (ZyrTEC) 10 mg DAILY PO 01/23/22 09:00 02/13/22 08:04 Mirabegron (Myrbetriq) 50 mg DAILY PO 01/23/22 09:00 02/13/22 08:03 Pantoprazole Sodium (Protonix) 40 mg DAILYAC PO 01/23/22 07:30 02/13/22 08:04 Atorvastatin Calcium (Lipitor) 80 mg QHS PO 01/22/22 21:00 02/13/22 19:52 Acetaminophen (Tylenol) 650 mg PRN Q6HRS PRN PO MILD PAIN / TEMP > 100.3'F 01/22/22 16:45 02/02/22 09:31 Multi-Ingredient Ointment (Analgesic [place]) 1 dalton PRN QID PRN TP MUSCLE PAIN 01/22/22 16:45 Al Hydroxide/Mg Hydroxide (Mylanta Plus Xs) 15 ml PRN AFTMEALHC PRN PO DYSPEPSIA 01/22/22 16:45 Magnesium Hydroxide (Milk Of Magnesia) 2,400 mg PRN QHS PRN PO 1ST CHOICE CONSTIPATION 01/22/22 16:45 02/10/22 20:04 Olanzapine (ZyPREXA) 2.5 mg PRN Q2HR PRN PO AGITATION 01/22/22 17:00 01/22/22 17:06 DC Olanzapine (ZyPREXA ZYDIS) 2.5 mg PRN Q2HRS PRN PO PSYCHOSIS 01/22/22 17:15 02/07/22 20:27 Trazodone HCl (Desyrel) 50 mg PRN QHS PRN PO insomnia 01/22/22 21:45 02/13/22 19:52 Trazodone HCl (Desyrel) 25 mg DAILY PO 01/23/22 15:30 01/23/22 16:22 DC 01/23/22 15:30 Trazodone HCl (Desyrel) 25 mg 0900,1300,1700 PO 01/23/22 17:00 02/08/22 10:24 DC 02/07/22 17:28 Sodium Chloride 1,000 ml @ 1,000 mls/hr 1X ONCE IV 01/23/22 17:15 01/23/22 18:14 DC 01/23/22 17:15 Mirtazapine (Remeron) 7.5 mg QHS PO 01/30/22 21:00 02/13/22 19:52 Divalproex Sodium (Depakote Sprinkles) 125 mg 0900,1700 PO 01/30/22 17:00 02/03/22 18:27 DC 02/03/22 16:07 Divalproex Sodium (Depakote Sprinkles) 125 mg 0900 PO 02/04/22 09:00 02/11/22 20:41 DC 02/11/22 08:54 Divalproex Sodium (Depakote Sprinkles) 250 mg 1700 PO 02/04/22 17:00 02/11/22 20:41 DC 02/11/22 17:17 Trazodone HCl (Desyrel) 25 mg 1X ONCE PO 02/04/22 09:00 02/04/22 09:01 DC Melatonin (Melatonin) 3 mg QHS PO 02/06/22 21:00 02/13/22 19:52 Trazodone HCl (Desyrel) 25 mg 1700 PO 02/08/22 17:00 02/13/22 17:10 Sertraline HCl (Zoloft) 25 mg DAILY PO 02/09/22 09:00 02/11/22 23:50 DC 02/11/22 08:54 Sertraline HCl (Zoloft) 50 mg DAILY PO 02/12/22 09:00 02/13/22 08:04 Magnesium Citrate (Citroma) 296 ml PRN 1X PRN PO 2ND CHOICE CONSTIPATION 02/10/22 21:15 02/11/22 12:47 Docusate Sodium (Colace) 100 mg BID PO 02/11/22 09:00 02/11/22 07:44 DC Docusate Sodium (Colace Solution) 100 mg PRN BID PRN PO HARD STOOLS 02/11/22 07:45 02/11/22 08:50 DC Docusate Sodium (Colace Solution) 100 mg BID PO 02/12/22 09:00 Aspirin (Aspirin Chewable) 81 mg DAILYWBKFT PO 02/12/22 08:00 02/13/22 08:04 Divalproex Sodium (Depakote Sprinkles) 250 mg DAILY PO 02/12/22 09:00 02/13/22 08:04 Divalproex Sodium (Depakote Sprinkles) 375 mg DAILYWSUP PO 02/12/22 17:00 02/13/22 17:13 I have reviewed the current psychotropics carefully including drug interactions. Risk benefit ratio favors no change other than as noted in my dictated progress note. Diagnosis: Problems: (1) Impulse control disorder, unspecified (2) Anxiety disorder, unspecified (3) Dementia, vascular, with depression (4) Dementia, vascular, with delusions (5) Dementia in Alzheimer's disease with depression (6) Dementia in Alzheimer's disease with delusions (7) Dementia of the Alzheimer's type with early onset with behavioral dist urbance (8) Major neurocognitive disorder SANCHEZ JEAN MD Feb 13, 2022 21:51
[2022-02-14 06:28] VITALS: BP 172/77
[2022-02-14] MEDS: PANTOPRAZOLE 40 MG TABLET. PO SCH (07:30)
[2022-02-14] MEDS: ASPIRIN CHEWABLE 81 MG TABLET. PO SCH (08:00)
[2022-02-14] MEDS: LISINOPRIL 10 MG TABLET PO SCH (09:00)
[2022-02-14] MEDS: METOPROLOL TART IMMED RELEASE 25 MG TABLET. PO SCH ×2 (09:00→20:36)
[2022-02-14] MEDS: SERTRALINE 25 MG TABLET. PO SCH (09:00)
[2022-02-14] MEDS: CETIRIZINE HCL 10 MG TABLET PO SCH (09:00)
[2022-02-14] MEDS: DIVALPROEX 125 MG CAP.SPRINK PO SCH ×2 (09:00→17:00)
[2022-02-14] MEDS: MIRABEGRON 25 MG TAB.ER.24H PO SCH (09:00)
[2022-02-14] MEDS: DOCUSATE 100 MG/10 ML SOLUTION. PO SCH ×2 (09:00→20:31)
--- NOTE | 2022-02-14 09:40 | PDOC ---
Exam Note: Bernard Note: This note is a late entry for 02/12/2022 covers elements not covered in my initial note. Subjective: The patient was seen individually on 02/12/2022, discussed and reviewed the chart with Isabell MONTALVO. The patient slept 7-3/4 hours previous night. He remains confused, needs redirection. He slept through breakfast. Urine has reflex to culture. We will defer to Dr. العراقي/Dr. South for this. He has not been aggressive, more redirectable but confused. Review of Systems: No CV, , pulmonary, eye, ENT system symptoms on review. Reliability poor. Mental Status Exam: The patient is oriented to himself. Insight and judgment, recent and remote memory, attention and concentration, fund of knowledge is poor consistent with his diagnoses. Laboratory Data: Reviewed. Impression: Major neurocognitive disorder, early Alzheimer, vascular with delusion, depression, behavioral disturbance. Anxiety disorder unspecified. Impulse control disorder unspecified. Plan: We will continue to adjust his psychotropics. Reviewed drug interactions, risk-benefit ratio which favors no further change today but we will continue to assess this. Assessment: Vital Signs/I&O: Vital Signs Date Time Temp Pulse Resp B/P (MAP) Pulse Ox O2 Delivery O2 Flow Rate FiO2 02/14/22 06:28 97.0 52 14 172/77 (108) 94 02/13/22 15:54 Room Air I & O 02/13/22 02/13/22 02/14/22 14:59 22:59 06:59 Intake Total 480 ml 600 ml Balance 480 ml 600 ml Current Medications: I have reviewed the current psychotropics carefully including drug interactions. Risk benefit ratio favors no change other than as noted in my dictated progress note. Diagnosis: Problems: (1) Impulse control disorder, unspecified (2) Anxiety disorder, unspecified (3) Dementia, vascular, with depression (4) Dementia, vascular, with delusions (5) Dementia in Alzheimer's disease with depression (6) Dementia in Alzheimer's disease with delusions (7) Dementia of the Alzheimer's type with early onset with behavioral disturbance (8) Major neurocognitive disorder SANCHEZ JEAN MD Feb 14, 2022 09:40
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
[2022-02-14 15:24] VITALS: BP 121/81
[2022-02-14] MEDS: traZODone 50 MG TABLET. PO SCH (17:00)
[2022-02-14] MEDS: ALPRAZolam 0.25 MG TABLET PO PRN (18:28)
[2022-02-14] MEDS: traZODone 50 MG TABLET. PO PRN (20:29)
[2022-02-14] MEDS: LACTOBACILLUS RHAMNOSUS GG 1 CAPSULE. PO SCH (20:31)
[2022-02-14] MEDS: ATORVASTATIN CALCIUM 20 MG TABLET PO SCH (20:31)
[2022-02-14] MEDS: MELATONIN 3 MG TABLET PO SCH (20:31)
[2022-02-14] MEDS: AMOXICILLIN 250 MG CAPSULE PO SCH (20:31)
[2022-02-14] MEDS: MIRTAZAPINE 7.5 MG TABLET. PO SCH (20:31)
--- NOTE | 2022-02-14 22:02 | PDOC ---
Exam Note: Bernard Note: Please also refer to the separate dictated note~for this date of service dictated separately.~Patient seen individually. Discussed the patient with Nursing staff reviewed the chart.~Reviewed interim history and current functioning. Reviewed vital signs,~Labs/ Radiology~and current medications noted below. Continue current treatment with the changes noted in the dictated addendum note Assessment: Vital Signs/I&O: Vital Signs Date Time Temp Pulse Resp B/P (MAP) Pulse Ox O2 Delivery O2 Flow Rate FiO2 02/14/22 20:36 62 133/61 02/14/22 15:24 97.2 02/14/22 06:28 14 94 02/13/22 15:54 Room Air I & O 02/13/22 02/13/22 02/14/22 15:00 23:00 07:00 Intake Total 480 ml 600 ml Balance 480 ml 600 ml Current Medications: Meds: Current Medications Medications (Trade) Dose Ordered Sig/Leoncio Route PRN Reason Start Time Stop Time Status Last Admin Dose Admin Alprazolam (Xanax) 0.25 mg PRN QHS PRN PO ANXIETY / AGITATION 01/22/22 16:30 02/14/22 18:28 Aspirin (Aspirin Enteric Coated) 81 mg DAILY PO 01/23/22 09:00 02/11/22 14:16 DC 02/11/22 08:54 Donepezil HCl (Aricept) 10 mg QHS PO 01/22/22 21:00 01/24/22 16:39 DC 01/23/22 21:36 Haloperidol (Haldol) 0.5 mg PRN TID PRN PO AGITATION 01/22/22 16:30 01/22/22 16:57 DC 01/22/22 16:29 Memantine (Namenda) 10 mg BID PO 01/22/22 21:00 01/24/22 16:38 DC 01/24/22 09:00 Metoprolol Tartrate (Lopressor) 25 mg BID PO 01/22/22 21:00 02/14/22 20:36 Lisinopril (Prinivil) 10 mg DAILY PO 01/23/22 09:00 02/14/22 09:00 Cetirizine HCl (ZyrTEC) 10 mg DAILY PO 01/23/22 09:00 02/14/22 09:00 Mirabegron (Myrbetriq) 50 mg DAILY PO 01/23/22 09:00 02/14/22 09:00 Pantoprazole Sodium (Protonix) 40 mg DAILYAC PO 01/23/22 07:30 02/14/22 07:30 Atorvastatin Calcium (Lipitor) 80 mg QHS PO 01/22/22 21:00 02/14/22 20:31 Acetaminophen (Tylenol) 650 mg PRN Q6HRS PRN PO MILD PAIN / TEMP > 100.3'F 01/22/22 16:45 02/02/22 09:31 Multi-Ingredient Ointment (Analgesic [place]) 1 dalton PRN QID PRN TP MUSCLE PAIN 01/22/22 16:45 Al Hydroxide/Mg Hydroxide (Mylanta Plus Xs) 15 ml PRN AFTMEALHC PRN PO DYSPEPSIA 01/22/22 16:45 Magnesium Hydroxide (Milk Of Magnesia) 2,400 mg PRN QHS PRN PO 1ST CHOICE CONSTIPATION 01/22/22 16:45 02/10/22 20:04 Olanzapine (ZyPREXA) 2.5 mg PRN Q2HR PRN PO AGITATION 01/22/22 17:00 01/22/22 17:06 DC Olanzapine (ZyPREXA ZYDIS) 2.5 mg PRN Q2HRS PRN PO PSYCHOSIS 01/22/22 17:15 02/14/22 20:31 Trazodone HCl (Desyrel) 50 mg PRN QHS PRN PO insomnia 01/22/22 21:45 02/14/22 20:29 Trazodone HCl (Desyrel) 25 mg DAILY PO 01/23/22 15:30 01/23/22 16:22 DC 01/23/22 15:30 Trazodone HCl (Desyrel) 25 mg 0900,1300,1700 PO 01/23/22 17:00 02/08/22 10:24 DC 02/07/22 17:28 Sodium Chloride 1,000 ml @ 1,000 mls/hr 1X ONCE IV 01/23/22 17:15 01/23/22 18:14 DC 01/23/22 17:15 Mirtazapine (Remeron) 7.5 mg QHS PO 01/30/22 21:00 02/14/22 20:31 Divalproex Sodium (Depakote Sprinkles) 125 mg 0900,1700 PO 01/30/22 17:00 02/03/22 18:27 DC 02/03/22 16:07 Divalproex Sodium (Depakote Sprinkles) 125 mg 0900 PO 02/04/22 09:00 02/11/22 20:41 DC 02/11/22 08:54 Divalproex Sodium (Depakote Sprinkles) 250 mg 1700 PO 02/04/22 17:00 02/11/22 20:41 DC 02/11/22 17:17 Trazodone HCl (Desyrel) 25 mg 1X ONCE PO 02/04/22 09:00 02/04/22 09:01 DC Melatonin (Melatonin) 3 mg QHS PO 02/06/22 21:00 02/14/22 20:31 Trazodone HCl (Desyrel) 25 mg 1700 PO 02/08/22 17:00 02/14/22 17:00 Sertraline HCl (Zoloft) 25 mg DAILY PO 02/09/22 09:00 02/11/22 23:50 DC 02/11/22 08:54 Sertraline HCl (Zoloft) 50 mg DAILY PO 02/12/22 09:00 02/14/22 09:00 Magnesium Citrate (Citroma) 296 ml PRN 1X PRN PO 2ND CHOICE CONSTIPATION 02/10/22 21:15 02/11/22 12:47 Docusate Sodium (Colace) 100 mg BID PO 02/11/22 09:00 02/11/22 07:44 DC Docusate Sodium (Colace Solution) 100 mg PRN BID PRN PO HARD STOOLS 02/11/22 07:45 02/11/22 08:50 DC Docusate Sodium (Colace Solution) 100 mg BID PO 02/12/22 09:00 02/14/22 20:31 Aspirin (Aspirin Chewable) 81 mg DAILYWBKFT PO 02/12/22 08:00 02/14/22 08:00 Divalproex Sodium (Depakote Sprinkles) 250 mg DAILY PO 02/12/22 09:00 02/14/22 09:00 Divalproex Sodium (Depakote Sprinkles) 375 mg DAILYWSUP PO 02/12/22 17:00 02/14/22 17:00 Amoxicillin (Amoxil) 500 mg [id number] PO 02/14/22 21:00 02/21/22 21:00 02/14/22 20:31 Lactobacillus Rhamnosus (Culturelle) 1 cap BID PO 02/14/22 21:00 02/14/22 20:31 Current Medications Medications (Trade) Dose Ordered Sig/Leoncio Route PRN Reason Start Time Stop Time Status Last Admin Dose Admin Amoxicillin (Amoxil) 500 mg [id number] PO 02/14/22 21:00 02/21/22 21:00 02/14/22 20:31 Lactobacillus Rhamnosus (Culturelle) 1 cap BID PO 02/14/22 21:00 02/14/22 20:31 I have reviewed the current psychotropics carefully including drug interactions. Risk benefit ratio favors no change other than as noted in my dictated progress note. Diagnosis: Problems: (1) Impulse control disorder, unspecified (2) Anxiety disorder, unspecified (3) Dementia, vascular, with depression (4) Dementia, vascular, with delusions (5) Dementia in Alzheimer's disease with depression (6) Dementia in Alzheimer's disease with delusions (7) Dementia of the Alzheimer's type with early onset with behavioral disturbance (8) Major neurocognitive disorder SANCHEZ JEAN MD Feb 14, 2022 22:02
[2022-02-15 06:27] VITALS: BP 168/81
[2022-02-15 07:41] LABS: BASO % 1 % (0-3); EOS # 0.2 x10^3/uL (0.0-0.7); EOS % 4 % (0-3); HEMOGLOBIN 13.4 g/dL (13.0-17.5); LYMPH # 1.5 x10^3/uL (1.0-4.8); LYMPH % 41 % (24-48); MEAN CORPUSCULAR HEMOGLOBIN 29 pg (25-35); MEAN CORPUSCULAR HGB CONC 33 g/dL (31-37); MEAN CORPUSCULAR VOLUME 89 fL (79-100); MONO # 0.3 x10^3/uL (0.0-1.1); MONO % 9 % (0-9); NEUT # 1.6 x10^3uL (1.8-7.7); NEUT % 45 % (31-73); PLATELET COUNT 112 x10^3/uL (140-400); RED BLOOD COUNT 4.61 x10^6/uL (4.30-5.70); RED CELL DISTRIBUTION WIDTH 14.4 % (11.5-14.5); WHITE BLOOD COUNT 3.7 x10^3/uL (4.0-11.0)
[2022-02-15 08:01] LABS: ALBUMIN 3.1 g/dL (3.4-5.0); ALBUMIN/GLOBULIN RATIO 1.1 (1.0-1.7); ALK PHOS 58 U/L (46-116); ALT (SGPT) 26 U/L (16-63); ANION GAP 3 (6-14); AST (SGOT) 25 U/L (15-37); BLOOD UREA NITROGEN 26 mg/dL (8-26); BUN/CREATININE RATIO 20 (6-20); CALCIUM 8.9 mg/dL (8.5-10.1); CARBON DIOXIDE 35 mmol/L (21-32); CHLORIDE 111 mmol/L (98-107); CREATININE 1.3 mg/dL (0.7-1.3); GFR 53.5; GLUCOSE 97 mg/dL (70-99); POTASSIUM 4.2 mmol/L (3.5-5.1); SODIUM 149 mmol/L (136-145); TOTAL BILIRUBIN 0.4 mg/dL (0.2-1.0); TOTAL PROTEIN 5.8 g/dL (6.4-8.2)
[2022-02-15 08:06] LABS: VAL ACID 52 mcg/mL (50-100)
[2022-02-15] MEDS: AMOXICILLIN 250 MG CAPSULE PO SCH ×3 (08:48→20:43)
[2022-02-15] MEDS: METOPROLOL TART IMMED RELEASE 25 MG TABLET. PO SCH ×2 (08:49→20:44)
[2022-02-15] MEDS: CETIRIZINE HCL 10 MG TABLET PO SCH (08:49)
[2022-02-15] MEDS: ASPIRIN CHEWABLE 81 MG TABLET. PO SCH (08:49)
[2022-02-15] MEDS: DIVALPROEX 125 MG CAP.SPRINK PO SCH ×2 (08:49→17:27)
[2022-02-15] MEDS: MIRABEGRON 25 MG TAB.ER.24H PO SCH (08:49)
[2022-02-15] MEDS: DOCUSATE 100 MG/10 ML SOLUTION. PO SCH ×2 (08:50→20:44)
[2022-02-15] MEDS: LISINOPRIL 10 MG TABLET PO SCH (08:50)
[2022-02-15] MEDS: LACTOBACILLUS RHAMNOSUS GG 1 CAPSULE. PO SCH ×2 (08:50→20:44)
[2022-02-15] MEDS: SERTRALINE 25 MG TABLET. PO SCH (08:50)
[2022-02-15] MEDS: PANTOPRAZOLE 40 MG TABLET. PO SCH (08:50)
--- NOTE | 2022-02-15 13:53 | TX PLAN ---
Interdisciplinary Tx Plan Admission Information Jan 22, 2022 at 15:15 Legal Status (on Admission): Voluntary DPOA/Guardian Name: Elena Fry Contact Other Contact Name: Elena Fry Other Contact Verified Code Status: DNR Allergies: Coded Allergies: No Known Drug Allergies (Unverified , 12/18/21) Diagnoses Primary Diagnosis: Dementia with BD Reasons for Admission: Sig. Change Appetite, Sig. Change Sleep, Combative, Poor impulse control Problem in Patient's Words: Continued dementia decline and needs help. Additional Admission Comments: According to the intake, pt is combative towards spouse during times of cares and meds, agitated, sundowning, insomnia (hasn't slept in the last 48 hours), word salad Problems Active Problems: Resistive to cares insomnia word salad Inactive Problems: non-compliant with meds Pt Strengths/Limitations Ability for [place]: Poor Cognitive Functioning/Ability: Fair Communication Skills/Ability: Poor Financial Resources: Fair Insight/Judgement: Poor Intellectual Ability: Fair Physical Health: Poor Social Skills: Fair Stability in Family: Excellent Stability in School/Work: Poor Verbal Skills: Poor Discharge Criteria Discharge Criteria: Adequate arrangements @DC, Improved behavior, Improved mood/thought Preliminary Discharge Plan Preliminary DC Plan: Current Living Arrange. Special Precautions Fall Risk: Low Initial D/C Plan Pt will return home with at the time of discharge. Identified Discharge Needs: Will consider placement if necessary. Currently Utilized Resources Currently Utilized Resources/P: Primary Care Physician Referrals Community Resources: Neurology Psychiatry Identified Problems/Hx/Goals Objectives/Short-Term Goals Short Term Goals: Dec. Outbursts, Improved Social Skills, Promote Coping Skill Short Term Goals in Patient's: N/A Interventions/Frequency Staff Interventions/Frequency&: Psychiatrist to assess pt at least 3x per week for continual medication management. Social Work to assss pt at least 2x per week to identify barriers to care and finalize discharge plans. Nursing to assess medication effects, behavior modifications and completion of 15 minute checks daily. Encourage participation in group activities (if applicable) or 1:1 engagement based off activity dept goals. History Vocational History: Worked for [employer] for 42 years and retired from there. 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 Pt continues to wander and be intrusive with peers but never combative towards peers. Pt is highly restive towards cares but not combative with those either; he is mostly redirectable but does need consistent direction as he remains restless and unable to fully follow directions. Pt did participate in five groups with minimal to moderate participation; it appears that he really likes the music groups and was even able to participate in a karaoke group. Pt Elena participated in treatment team and was very thankful for everything staff have done. YON informed all parties that an insurance update was due for today; based off the information noted, pt would at the earliest discharge tomorrow; the latest being Saturday. YON will aid in getting all appointments set up and wo rk with Elena on final discharge plans. KAREN BAEZA Feb 15, 2022 13:53
[2022-02-15 16:04] VITALS: BP 125/84
[2022-02-15] MEDS: ALPRAZolam 0.25 MG TABLET PO PRN (16:17)
[2022-02-15] MEDS: traZODone 50 MG TABLET. PO SCH (17:27)
[2022-02-15] MEDS ORDERED: hydrOXYzine HCL 25 MG TABLET PO PRN (18:15)
[2022-02-15] MEDS: ATORVASTATIN CALCIUM 20 MG TABLET PO SCH (20:43)
[2022-02-15] MEDS: MELATONIN 3 MG TABLET PO SCH (20:44)
[2022-02-15] MEDS: MIRTAZAPINE 7.5 MG TABLET. PO SCH (20:44)
[2022-02-15] MEDS: traZODone 50 MG TABLET. PO PRN (20:44)
--- NOTE | 2022-02-15 22:06 | PDOC ---
Exam Note: Bernard Note: Please also refer to the separate dictated note~for this date of service dictated separately.~Patient seen individually. Discussed the patient with Nursing staff reviewed the chart.~Reviewed interim history and current functioning. Reviewed vital signs,~Labs/ Radiology~and current medications noted below. Continue current treatment with the changes noted in the dictated addendum note Assessment: Vital Signs/I&O: Vital Signs Date Time Temp Pulse Resp B/P (MAP) Pulse Ox O2 Delivery O2 Flow Rate FiO2 02/15/22 20:44 86 125/84 02/15/22 16:04 97.4 20 97 02/13/22 15:54 Room Air I & O 02/14/22 02/14/22 02/15/22 15:00 23:00 07:00 Intake Total 80 ml 480 ml Balance 80 ml 480 ml Labs: Laboratory Tests Test 02/15/22 07:32 White Blood Count 3.7 x10^3/uL (4.0-11.0) L Red Blood Count 4.61 x10^6/uL (4.30-5.70) Hemoglobin 13.4 g/dL (13.0-17.5) Hematocrit 41.0 % (39.0-53.0) Mean Corpuscular Volume 89 fL (79-100) Mean Corpuscular Hemoglobin 29 pg (25-35) Mean Corpuscular Hemoglobin Concent 33 g/dL (31-37) Red Cell Distribution Width 14.4 % (11.5-14.5) Platelet Count 112 x10^3/uL (140-400) L Neutrophils (%) (Auto) 45 % (31-73) Lymphocytes (%) (Auto) 41 % (24-48) Monocytes (%) (Auto) 9 % (0-9) Eosinophils (%) (Auto) 4 % (0-3) H Basophils (%) (Auto) 1 % (0-3) Neutrophils # (Auto) 1.6 x10^3uL (1.8-7.7) L Lymphocytes # (Auto) 1.5 x10^3/uL (1.0-4.8) Monocytes # (Auto) 0.3 x10^3/uL (0.0-1.1) Eosinophils # (Auto) 0.2 x10^3/uL (0.0-0.7) Basophils # (Auto) 0.0 x10^3/uL (0.0-0.2) Sodium Level 149 mmol/L (136-145) H Potassium Level 4.2 mmol/L (3.5-5.1) Chloride Level 111 mmol/L (98-107) H Carbon Dioxide Level 35 mmol/L (21-32) H Anion Gap 3 (6-14) L Blood Urea Nitrogen 26 mg/dL (8-26) Creatinine 1.3 mg/dL (0.7-1.3) Estimated GFR (Cockcroft-Gault) 53.5 BUN/Creatinine Ratio 20 (6-20) Glucose Level 97 mg/dL (70-99) Calcium Level 8.9 mg/dL (8.5-10.1) Total Bilirubin 0.4 mg/dL (0.2-1.0) Aspartate Amino Transferase (AST) 25 U/L (15-37) Alanine Aminotransferase (ALT) 26 U/L (16-63) Alkaline Phosphatase 58 U/L (46-116) Ammonia < 10 mcmol/L (11-34) L Total Protein 5.8 g/dL (6.4-8.2) L Albumin 3.1 g/dL (3.4-5.0) L Albumin/Globulin Ratio 1.1 (1.0-1.7) Valproic Acid Level 52 mcg/mL (50-100) Valproic Acid Last Dose Date 02/14/22 Valproic Acid Last Dose Time 1700 Current Medications: Meds: Laboratory Tests Test 02/15/22 07:32 White Blood Count 3.7 x10^3/uL Red Blood Count 4.61 x10^6/uL Hemoglobin 13.4 g/dL Hematocrit 41.0 % Mean Corpuscular Volume 89 fL Mean Corpuscular Hemoglobin 29 pg Mean Corpuscular Hemoglobin Concent 33 g/dL Red Cell Distribution Width 14.4 % Platelet Count 112 x10^3/uL Neutrophils (%) (Auto) 45 % Lymphocytes (%) (Auto) 41 % Monocytes (%) (Auto) 9 % Eosinophils (%) (Auto) 4 % Basophils (%) (Auto) 1 % Neutrophils # (Auto) 1.6 x10^3uL Lymphocytes # (Auto) 1.5 x10^3/uL Monocytes # (Auto) 0.3 x10^3/uL Eosinophils # (Auto) 0.2 x10^3/uL Basophils # (Auto) 0.0 x10^3/uL Sodium Level 149 mmol/L Potassium Level 4.2 mmol/L Chloride Level 111 mmol/L Carbon Dioxide Level 35 mmol/L Anion Gap 3 Blood Urea Nitrogen 26 mg/dL Creatinine 1.3 mg/dL Estimated GFR (Cockcroft-Gault) 53.5 BUN/Creatinine Ratio 20 Glucose Level 97 mg/dL Calcium Level 8.9 mg/dL Total Bilirubin 0.4 mg/dL Aspartate Amino Transf (AST/SGOT) 25 U/L Alanine Aminotransferase (ALT/SGPT) 26 U/L Alkaline Phosphatase 58 U/L Ammonia < 10 mcmol/L Total Protein 5.8 g/dL Albumin 3.1 g/dL Albumin/Globulin Ratio 1.1 Valproic Acid (Depakene) Level 52 mcg/mL Valproic Acid Last Dose Date 02/14/22 Valproic Acid Last Dose Time 1700 Current Medications Medications (Trade) Dose Ordered Sig/Leoncio Route PRN Reason Start Time Stop Time Status Last Admin Dose Admin Alprazolam (Xanax) 0.25 mg PRN QHS PRN PO ANXIETY / AGITATION 01/22/22 16:30 02/15/22 16:17 Aspirin (Aspirin Enteric Coated) 81 mg DAILY PO 01/23/22 09:00 02/11/22 14:16 DC 02/11/22 08:54 Donepezil HCl (Aricept) 10 mg QHS PO 01/22/22 21:00 01/24/22 16:39 DC 01/23/22 21:36 Haloperidol (Haldol) 0.5 mg PRN TID PRN PO AGITATION 01/22/22 16:30 01/22/22 16:57 DC 01/22/22 16:29 Memantine (Namenda) 10 mg BID PO 01/22/22 21:00 01/24/22 16:38 DC 01/24/22 09:00 Metoprolol Tartrate (Lopressor) 25 mg BID PO 01/22/22 21:00 02/15/22 20:44 Lisinopril (Prinivil) 10 mg DAILY PO 01/23/22 09:00 02/15/22 08:50 Cetirizine HCl (ZyrTEC) 10 mg DAILY PO 01/23/22 09:00 02/15/22 08:49 Mirabegron (Myrbetriq) 50 mg DAILY PO 01/23/22 09:00 02/15/22 08:49 Pantoprazole Sodium (Protonix) 40 mg DAILYAC PO 01/23/22 07:30 02/15/22 08:50 Atorvastatin Calcium (Lipitor) 80 mg QHS PO 01/22/22 21:00 02/15/22 20:43 Acetaminophen (Tylenol) 650 mg PRN Q6HRS PRN PO MILD PAIN / TEMP > 100.3'F 01/22/22 16:45 02/02/22 09:31 Multi-Ingredient Ointment (Analgesic [place]) 1 [place] PRN QID PRN TP MUSCLE PAIN 01/22/22 16:45 Al Hydroxide/Mg Hydroxide (Mylanta Plus Xs) 15 ml PRN AFTMEALHC PRN PO DYSPEPSIA 01/22/22 16:45 Magnesium Hydroxide (Milk Of Magnesia) 2,400 mg PRN QHS PRN PO 1ST CHOICE CONSTIPATION 01/22/22 16:45 02/10/22 20:04 Olanzapine (ZyPREXA) 2.5 mg PRN Q2HR PRN PO AGITATION 01/22/22 17:00 01/22/22 17:06 DC Olanzapine (ZyPREXA ZYDIS) 2.5 mg PRN Q2HRS PRN PO PSYCHOSIS 01/22/22 17:15 02/14/22 20:31 Trazodone HCl (Desyrel) 50 mg PRN QHS PRN PO insomnia 01/22/22 21:45 02/15/22 20:44 Trazodone HCl (Desyrel) 25 mg DAILY PO 01/23/22 15:30 01/23/22 16:22 DC 01/23/22 15:30 Trazodone HCl (Desyrel) 25 mg 0900,1300,1700 PO 01/23/22 17:00 02/08/22 10:24 DC 02/07/22 17:28 Sodium Chloride 1,000 ml @ 1,000 mls/hr 1X ONCE IV 01/23/22 17:15 01/23/22 18:14 DC 01/23/22 17:15 Mirtazapine (Remeron) 7.5 mg QHS PO 01/30/22 21:00 02/15/22 20:44 Divalproex Sodium (Depakote Sprinkles) 125 mg 0900,1700 PO 01/30/22 17:00 02/03/22 18:27 DC 02/03/22 16:07 Divalproex Sodium (Depakote Sprinkles) 125 mg 0900 PO 02/04/22 09:00 02/11/22 20:41 DC 02/11/22 08:54 Divalproex Sodium (Depakote Sprinkles) 250 mg 1700 PO 02/04/22 17:00 02/11/22 20:41 DC 02/11/22 17:17 Trazodone HCl (Desyrel) 25 mg 1X ONCE PO 02/04/22 09:00 02/04/22 09:01 DC Melatonin (Melatonin) 3 mg QHS PO 02/06/22 21:00 02/15/22 20:44 Trazodone HCl (Desyrel) 25 mg 1700 PO 02/08/22 17:00 02/15/22 17:27 Sertraline HCl (Zoloft) 25 mg DAILY PO 02/09/22 09:00 02/11/22 23:50 DC 02/11/22 08:54 Sertraline HCl (Zoloft) 50 mg DAILY PO 02/12/22 09:00 02/15/22 08:50 Magnesium Citrate (Citroma) 296 ml PRN 1X PRN PO 2ND CHOICE CONSTIPATION 02/10/22 21:15 02/11/22 12:47 Docusate Sodium (Colace) 100 mg BID PO 02/11/22 09:00 02/11/22 07:44 DC Docusate Sodium (Colace Solution) 100 mg PRN BID PRN PO HARD STOOLS 02/11/22 07:45 02/11/22 08:50 DC Docusate Sodium (Colace Solution) 100 mg BID PO 02/12/22 09:00 02/15/22 20:44 Aspirin (Aspirin Chewable) 81 mg DAILYWBKFT PO 02/12/22 08:00 02/15/22 08:49 Divalproex Sodium (Depakote Sprinkles) 250 mg DAILY PO 02/12/22 09:00 02/15/22 11:06 DC 3/24/22 08:49 Divalproex Sodium (Depakote Sprinkles) 375 mg DAILYWSUP PO 02/12/22 17:00 02/15/22 11:06 DC 02/14/22 17:00 Amoxicillin (Amoxil) 500 mg [id number] PO 02/14/22 21:00 02/21/22 21:00 02/15/22 20:43 Lactobacillus Rhamnosus (Culturelle) 1 cap BID PO 02/14/22 21:00 02/15/22 20:44 Divalproex Sodium (Depakote Sprinkles) 375 mg 0900,1700 PO 02/15/22 17:00 02/15/22 17:27 Hydroxyzine HCl (Atarax) 25 mg TID PRN PRN PO Anxiety 02/15/22 18:15 Current Medications Medications (Trade) Dose Ordered Sig/Leoncio Route PRN Reason Start Time Stop Time Status Last Admin Dose Admin Divalproex Sodium (Depakote Sprinkles) 375 mg 0900,1700 PO 02/15/22 17:00 02/15/22 17:27 I have reviewed the current psychotropics carefully including drug interactions. Risk benefit ratio favors no change other than as noted in my dictated progress note. Diagnosis: Problems: (1) Impulse control disorder, unspecified (2) Anxiety disorder, unspecified (3) Dementia, vascular, with depression (4) Dementia, vascular, with delusions (5) Dementia in Alzheimer's disease with depression (6) Dementia in Alzheimer's disease with delusions (7) Dementia of the Alzheimer's type with early onset with behavioral disturbance (8) Major neurocognitive disorder SANCHEZ JEAN MD Feb 15, 2022 22:06
[2022-02-16 06:38] VITALS: BP 112/67
[2022-02-16] MEDS: PANTOPRAZOLE 40 MG TABLET. PO SCH (07:30)
[2022-02-16] MEDS: ASPIRIN CHEWABLE 81 MG TABLET. PO SCH (08:00)
[2022-02-16] MEDS: DOCUSATE 100 MG/10 ML SOLUTION. PO SCH ×2 (09:00→19:58)
[2022-02-16] MEDS: METOPROLOL TART IMMED RELEASE 25 MG TABLET. PO SCH ×2 (09:00→20:29)
[2022-02-16] MEDS: AMOXICILLIN 250 MG CAPSULE PO SCH ×3 (09:00→19:57)
[2022-02-16] MEDS: LISINOPRIL 10 MG TABLET PO SCH (09:00)
[2022-02-16] MEDS: MIRABEGRON 25 MG TAB.ER.24H PO SCH (09:00)
[2022-02-16] MEDS: LACTOBACILLUS RHAMNOSUS GG 1 CAPSULE. PO SCH ×2 (09:00→19:57)
[2022-02-16] MEDS: DIVALPROEX 125 MG CAP.SPRINK PO SCH ×2 (09:00→17:00)
[2022-02-16] MEDS: SERTRALINE 25 MG TABLET. PO SCH (09:00)
[2022-02-16] MEDS: CETIRIZINE HCL 10 MG TABLET PO SCH (09:00)
--- NOTE | 2022-02-16 11:00 | PDOC ---
Exam Note: Bernard Note: This note is a late entry for 02/14/2022 covers elements not covered in my initial note. Subjective: The patient was seen individually on 02/14/2022, discussed and reviewed the chart with Evelyne MONTALVO. The patient slept 5 hours previous night. He has done better in all periods of time but then was urinating on the floor in his room. We might need to repeat UA which was initially contaminated. Review of Systems: No CV, , pulmonary, eye, ENT system symptoms on review. Reliability poor. Mental Status Exam: The patient is oriented to himself. Insight and judgment, recent and remote memory, attention and concentration, fund of knowledge is poor consistent with his diagnoses. Laboratory Data: Reviewed. Impression: Major neurocognitive disorder, early Alzheimer, vascular with delusion, depression, behavioral disturbance. Anxiety disorder unspecified. Impulse control disorder unspecified. Plan: We will continue to adjust his psychotropics. Reviewed drug interactions, risk-benefit ratio. Assessment: Vital Signs/I&O: Vital Signs Date Time Temp Pulse Resp B/P (MAP) Pulse Ox O2 Delivery O2 Flow Rate FiO2 02/16/22 06:38 97.9 79 18 112/67 (82) 95 02/13/22 15:54 Room Air I & O 02/15/22 02/15/22 02/16/22 15:00 23:00 07:00 Intake Total 0 ml 240 ml Balance 0 ml 240 ml Current Medications: Meds: Current Medications Medications (Trade) Dose Ordered Sig/Leoncio Route PRN Reason Start Time Stop Time Status Last Admin Dose Admin Divalproex Sodium (Depakote Sprinkles) 375 mg 0900,1700 PO 02/15/22 17:00 02/15/22 17:27 I have reviewed the current psychotropics carefully including drug interactions. Risk benefit ratio favors no change other than as noted in my dictated progress note. Diagnosis: Problems: (1) Impulse control disorder, unspecified (2) Anxiety disorder, unspecified (3) Dementia, vascular, with depression (4) Dementia, vascular, with delusions (5) Dementia in Alzheimer's disease with depression (6) Dementia in Alzheimer's disease with delusions (7) Dementia of the Alzheimer's type with early onset with behavioral disturbance (8) Major neurocognitive disorder SANCHEZ JEAN MD Feb 16, 2022 10:42
[2022-02-16 15:34] VITALS: BP 105/63
[2022-02-16] MEDS: traZODone 50 MG TABLET. PO SCH (17:00)
[2022-02-16] MEDS: traZODone 50 MG TABLET. PO PRN (19:57)
[2022-02-16] MEDS: MIRTAZAPINE 7.5 MG TABLET. PO SCH (19:57)
[2022-02-16] MEDS: MELATONIN 3 MG TABLET PO SCH (19:57)
[2022-02-16] MEDS: ATORVASTATIN CALCIUM 20 MG TABLET PO SCH (19:58)
--- NOTE | 2022-02-16 21:45 | PDOC ---
Exam Note: Bernard Note: This note is a late entry for 02/15/2022 covers elements not covered in my initial note. Subjective: The patient was reviewed at treatment team meeting individually in the morning on 02/15/2022 with Shanon Rao, Deana Quintana, and Nicole Harris (community mental health social worker), Armida, activity therapy, and Evelyne MONTALVO, discussed and reviewed the chart. Discussed the patients progress, current psychotropics, discharge, after care plans at some length. The patient slept 6- 1/2 hours previous night. Elena stewart attended treatment team meeting. Appetite is 25%. Average 5 hours sleep. He takes medications crushed in food. He has been started on Amoxil for UTI. He is disorganized. He is dropping himself on the floor at times. At one point he picked up a chair and was trying to threaten the staff but seem to be doing it in a joke like he usually does. Review of Systems: No CV, , pulmonary, eye, ENT system symptoms on review. Reliability poor. Ambulation impaired. Mental Status Exam: The patient is oriented to himself. Insight and judgment, recent and remote memory, attention and concentration, fund of knowledge is poor consistent with his diagnoses. Laboratory Data: Reviewed. Impression: Major neurocognitive disorder, early Alzheimer, vascular with delusion, depression, behavioral disturbance. Anxiety disorder unspecified. Impulse control disorder unspecified. Plan: We will continue to adjust his psychotropics. Reviewed drug interactions, risk-benefit ratio. Given his ongoing marked mood lability, since valproic acid level is subtherapeutic at 40 we will increase Depakote Sprinkle to 375 mg twice a day. Check CBC, CMP, valproic acid level, ammonia level in 3 days. Platelet counts have dropped from 130 to 117. We will repeat it again in 2 days and we will keep an open mind whether Depakote needs to be stopped. Platelets continue to drop. Assessment: Vital Signs/I&O: Vital Signs Date Time Temp Pulse Resp B/P (MAP) Pulse Ox O2 Delivery O2 Flow Rate FiO2 02/16/22 20:29 84 105/63 02/16/22 15:34 98.0 16 95 02/13/22 15:54 Room Air I & O 02/15/22 02/15/22 02/16/22 15:00 23:00 07:00 Intake Total 0 ml 240 ml Balance 0 ml 240 ml Current Medications: I have reviewed the current psychotropics carefully including drug interactions. Risk benefit ratio favors no change other than as noted in my dictated progress note. Diagnosis: Problems: (1) Impulse control disorder, unspecified (2) Anxiety disorder, unspecified (3) Dementia, vascular, with depression (4) Dementia, vascular, with delusions (5) Dementia in Alzheimer's disease with depression (6) Dementia in Alzheimer's disease with delusions (7) Dementia of the Alzheimer's type with early onset with behavioral disturbance (8) Major neurocognitive disorder SANCHEZ JEAN MD Feb 16, 2022 21:45
--- NOTE | 2022-02-16 21:45 | PDOC ---
Exam Note: Bernard Note: Please also refer to the separate dictated note~for this date of service dictated separately.~Patient seen individually. Discussed the patient with Nursing staff reviewed the chart.~Reviewed interim history and current functioning. Reviewed vital signs,~Labs/ Radiology~and current medications noted below. Continue current treatment with the changes noted in the dictated addendum note Assessment: Vital Signs/I&O: Vital Signs Date Time Temp Pulse Resp B/P (MAP) Pulse Ox O2 Delivery O2 Flow Rate FiO2 02/16/22 20:29 84 105/63 02/16/22 15:34 98.0 16 95 02/13/22 15:54 Room Air I & O 02/15/22 02/15/22 02/16/22 15:00 23:00 07:00 Intake Total 0 ml 240 ml Balance 0 ml 240 ml Current Medications: Meds: Current Medications Medications (Trade) Dose Ordered Sig/Leoncio Route PRN Reason Start Time Stop Time Status Last Admin Dose Admin Alprazolam (Xanax) 0.25 mg PRN QHS PRN PO ANXIETY / AGITATION 01/22/22 16:30 02/15/22 16:17 Aspirin (Aspirin Enteric Coated) 81 mg DAILY PO 01/23/22 09:00 02/11/22 14:16 DC 02/11/22 08:54 Donepezil HCl (Aricept) 10 mg QHS PO 01/22/22 21:00 01/24/22 16:39 DC 01/23/22 21:36 Haloperidol (Haldol) 0.5 mg PRN TID PRN PO AGITATION 01/22/22 16:30 01/22/22 16:57 DC 01/22/22 16:29 Memantine (Namenda) 10 mg BID PO 01/22/22 21:00 01/24/22 16:38 DC 01/24/22 09:00 Metoprolol Tartrate (Lopressor) 25 mg BID PO 01/22/22 21:00 02/16/22 09:00 Lisinopril (Prinivil) 10 mg DAILY PO 01/23/22 09:00 02/16/22 09:00 Cetirizine HCl (ZyrTEC) 10 mg DAILY PO 01/23/22 09:00 02/16/22 09:00 Mirabegron (Myrbetriq) 50 mg DAILY PO 01/23/22 09:00 02/16/22 09:00 Pantoprazole Sodium (Protonix) 40 mg DAILYAC PO 01/23/22 07:30 02/16/22 07:30 Atorvastatin Calcium (Lipitor) 80 mg QHS PO 01/22/22 21:00 02/16/22 19:58 Acetaminophen (Tylenol) 650 mg PRN Q6HRS PRN PO MILD PAIN / TEMP > 100.3'F 01/22/22 16:45 02/02/22 09:31 Multi-Ingredient Ointment (Analgesic [place]) 1 [place] PRN QID PRN TP MUSCLE PAIN 01/22/22 16:45 Al Hydroxide/Mg Hydroxide (Mylanta Plus Xs) 15 ml PRN AFTMEALHC PRN PO DYSPEPSIA 01/22/22 16:45 Magnesium Hydroxide (Milk Of Magnesia) 2,400 mg PRN QHS PRN PO 1ST CHOICE CONSTIPATION 01/22/22 16:45 02/10/22 20:04 Olanzapine (ZyPREXA) 2.5 mg PRN Q2HR PRN PO AGITATION 01/22/22 17:00 01/22/22 17:06 DC Olanzapine (ZyPREXA ZYDIS) 2.5 mg PRN Q2HRS PRN PO PSYCHOSIS 01/22/22 17:15 02/16/22 17:32 Trazodone HCl (Desyrel) 50 mg PRN QHS PRN PO insomnia 01/22/22 21:45 02/16/22 19:57 Trazodone HCl (Desyrel) 25 mg DAILY PO 01/23/22 15:30 01/23/22 16:22 DC 01/23/22 15:30 Trazodone HCl (Desyrel) 25 mg 0900,1300,1700 PO 01/23/22 17:00 02/08/22 10:24 DC 02/07/22 17:28 Sodium Chloride 1,000 ml @ 1,000 mls/hr 1X ONCE IV 01/23/22 17:15 01/23/22 18:14 DC 01/23/22 17:15 Mirtazapine (Remeron) 7.5 mg QHS PO 01/30/22 21:00 02/16/22 19:57 Divalproex Sodium (Depakote Sprinkles) 125 mg 0900,1700 PO 01/30/22 17:00 02/03/22 18:27 DC 02/03/22 16:07 Divalproex Sodium (Depakote Sprinkles) 125 mg 0900 PO 02/04/22 09:00 02/11/22 20:41 DC 02/11/22 08:54 Divalproex Sodium (Depakote Sprinkles) 250 mg 1700 PO 02/04/22 17:00 02/11/22 20:41 DC 02/11/22 17:17 Trazodone HCl (Desyrel) 25 mg 1X ONCE PO 02/04/22 09:00 02/04/22 09:01 DC Melatonin (Melatonin) 3 mg QHS PO 02/06/22 21:00 02/16/22 19:57 Trazodone HCl (Desyrel) 25 mg 1700 PO 02/08/22 17:00 02/16/22 17:00 Sertraline HCl (Zoloft) 25 mg DAILY PO 02/09/22 09:00 02/11/22 23:50 DC 02/11/22 08:54 Sertraline HCl (Zoloft) 50 mg DAILY PO 02/12/22 09:00 02/16/22 09:00 Magnesium Citrate (Citroma) 296 ml PRN 1X PRN PO 2ND CHOICE CONSTIPATION 02/10/22 21:15 02/11/22 12:47 Docusate Sodium (Colace) 100 mg BID PO 02/11/22 09:00 02/11/22 07:44 DC Docusate Sodium (Colace Solution) 100 mg PRN BID PRN PO HARD STOOLS 02/11/22 07:45 02/11/22 08:50 DC Docusate Sodium (Colace Solution) 100 mg BID PO 02/12/22 09:00 02/16/22 19:58 Aspirin (Aspirin Chewable) 81 mg DAILYWBKFT PO 02/12/22 08:00 02/16/22 08:00 Divalproex Sodium (Depakote Sprinkles) 250 mg DAILY PO 02/12/22 09:00 02/15/22 11:06 DC 02/15/22 08:49 Divalproex Sodium (Depakote Sprinkles) 375 mg DAILYWSUP PO 02/12/22 17:00 02/15/22 11:06 DC 02/14/22 17:00 Amoxicillin (Amoxil) 500 mg [id number] PO 02/14/22 21:00 02/21/22 21:00 02/16/22 19:57 Lactobacillus Rhamnosus (Culturelle) 1 cap BID PO 02/14/22 21:00 02/16/22 19:57 Divalproex Sodium (Depakote Sprinkles) 375 mg 0900,1700 PO 02/15/22 17:00 02/16/22 17:00 Hydroxyzine HCl (Atarax) 25 mg TID PRN PRN PO Anxiety 02/15/22 18:15 I have reviewed the current psychotropics carefully including drug interactions. Risk benefit ratio favors no change other than as noted in my dictated progress note. Diagnosis: Problems: (1) Impulse control disorder, unspecified (2) Anxiety disorder, unspecified (3) Dementia, vascular, with depression (4) Dementia, vascular, with delusions (5) Dementia in Alzheimer's disease with depression (6) Dementia in Alzheimer's disease with delusions (7) Dementia of the Alzheimer's type with early onset with behavioral disturbance (8) Major neurocognitive disorder SANCHEZ JEAN MD Feb 16, 2022 21:45
[2022-02-17 05:45] VITALS: BP 138/67
[2022-02-17 07:18] LABS: HEMATOCRIT 38.6 % (39.0-53.0); HEMOGLOBIN 12.4 g/dL (13.0-17.5); RED BLOOD COUNT 4.33 x10^6/uL (4.30-5.70); RED CELL DISTRIBUTION WIDTH 14.1 % (11.5-14.5); WHITE BLOOD COUNT 3.7 x10^3/uL (4.0-11.0)
[2022-02-17] MEDS: SERTRALINE 25 MG TABLET. PO SCH (08:10)
[2022-02-17] MEDS: ASPIRIN CHEWABLE 81 MG TABLET. PO SCH (08:10)
[2022-02-17] MEDS: DIVALPROEX 125 MG CAP.SPRINK PO SCH ×2 (08:10→17:18)
[2022-02-17] MEDS: PANTOPRAZOLE 40 MG TABLET. PO SCH (08:10)
[2022-02-17] MEDS: METOPROLOL TART IMMED RELEASE 25 MG TABLET. PO SCH ×2 (08:11→20:39)
[2022-02-17] MEDS: DOCUSATE 100 MG/10 ML SOLUTION. PO SCH ×2 (08:11→20:38)
[2022-02-17] MEDS: CETIRIZINE HCL 10 MG TABLET PO SCH (08:11)
[2022-02-17] MEDS: LISINOPRIL 10 MG TABLET PO SCH (08:11)
[2022-02-17] MEDS: AMOXICILLIN 250 MG CAPSULE PO SCH ×3 (08:11→20:40)
[2022-02-17] MEDS: LACTOBACILLUS RHAMNOSUS GG 1 CAPSULE. PO SCH ×2 (08:11→20:40)
[2022-02-17] MEDS: MIRABEGRON 25 MG TAB.ER.24H PO SCH (08:12)
[2022-02-17 15:39] VITALS: BP 102/60
[2022-02-17] MEDS: traZODone 50 MG TABLET. PO SCH (17:18)
[2022-02-17] MEDS: MAGNESIUM HYDROXIDE 2,400 MG/30 ML ORAL.SUSP. PO PRN (20:38)
[2022-02-17] MEDS: traZODone 50 MG TABLET. PO PRN (20:39)
[2022-02-17] MEDS: ATORVASTATIN CALCIUM 20 MG TABLET PO SCH (20:39)
[2022-02-17] MEDS: MIRTAZAPINE 7.5 MG TABLET. PO SCH (20:41)
[2022-02-17] MEDS: MELATONIN 3 MG TABLET PO SCH (20:41)
[2022-02-18 06:00] VITALS: BP 151/70
--- NOTE | 2022-02-18 07:13 | PDOC ---
Exam Note: Bernard Note: Late entry for 02/17/2022. Please also refer to the separate dictated note~for this date of service dictated separately.~Patient seen individually. Discussed the patient with Nursing staff reviewed the chart.~Reviewed interim history and current functioning. Reviewed vital signs,~Labs/ Radiology~and current medic ations noted below. Continue current treatment with the changes noted in the dictated addendum note Assessment: Vital Signs/I&O: Vital Signs Date Time Temp Pulse Resp B/P (MAP) Pulse Ox O2 Delivery O2 Flow Rate FiO2 02/18/22 06:00 97.1 60 18 151/70 (97) 93 Room Air I & O 02/17/22 02/17/22 02/18/22 15:00 23:00 07:00 Intake Total 240 ml 840 ml Balance 240 ml 840 ml Current Medications: Meds: Current Medications Medications (Trade) Dose Ordered Sig/Leoncio Route PRN Reason Start Time Stop Time Status Last Admin Dose Admin Alprazolam (Xanax) 0.25 mg PRN QHS PRN PO ANXIETY / AGITATION 01/22/22 16:30 02/15/22 16:17 Aspirin (Aspirin Enteric Coated) 81 mg DAILY PO 01/23/22 09:00 02/11/22 14:16 DC 02/11/22 08:54 Donepezil HCl (Aricept) 10 mg QHS PO 01/22/22 21:00 01/24/22 16:39 DC 01/23/22 21:36 Haloperidol (Haldol) 0.5 mg PRN TID PRN PO AGITATION 01/22/22 16:30 01/22/22 16:57 DC 01/22/22 16:29 Memantine (Namenda) 10 mg BID PO 01/22/22 21:00 01/24/22 16:38 DC 01/24/22 09:00 Metoprolol Tartrate (Lopressor) 25 mg BID PO 01/22/22 21:00 02/17/22 20:39 Lisinopril (Prinivil) 10 mg DAILY PO 01/23/22 09:00 02/17/22 08:11 Cetirizine HCl (ZyrTEC) 10 mg DAILY PO 01/23/22 09:00 02/17/22 08:11 Mirabegron (Myrbetriq) 50 mg DAILY PO 01/23/22 09:00 02/17/22 08:12 Pantoprazole Sodium (Protonix) 40 mg DAILYAC PO 01/23/22 07:30 02/17/22 08:10 Atorvastatin Calcium (Lipitor) 80 mg QHS PO 01/22/22 21:00 02/17/22 20:39 Acetaminophen (Tylenol) 650 mg PRN Q6HRS PRN PO MILD PAIN / TEMP > 100.3'F 01/22/22 16:45 02/02/22 09:31 Multi-Ingredient Ointment (Analgesic [place]) 1 [place] PRN QID PRN TP MUSCLE PAIN 01/22/22 16:45 Al Hydroxide/Mg Hydroxide (Mylanta Plus Xs) 15 ml PRN AFTMEALHC PRN PO DYSPEPSIA 01/22/22 16:45 Magnesium Hydroxide (Milk Of Magnesia) 2,400 mg PRN QHS PRN PO 1ST CHOICE CONSTIPATION 01/22/22 16:45 02/17/22 20:38 Olanzapine (ZyPREXA) 2.5 mg PRN Q2HR PRN PO AGITATION 01/22/22 17:00 01/22/22 17:06 DC Olanzapine (ZyPREXA ZYDIS) 2.5 mg PRN Q2HRS PRN PO PSYCHOSIS 01/22/22 17:15 02/16/22 17:32 Trazodone HCl (Desyrel) 50 mg PRN QHS PRN PO insomnia 01/22/22 21:45 02/17/22 20:39 Trazodone HCl (Desyrel) 25 mg DAILY PO 01/23/22 15:30 01/23/22 16:22 DC 01/23/22 15:30 Trazodone HCl (Desyrel) 25 mg 0900,1300,1700 PO 01/23/22 17:00 02/08/22 10:24 DC 02/07/22 17:28 Sodium Chloride 1,000 ml @ 1,000 mls/hr 1X ONCE IV 01/23/22 17:15 01/23/22 18:14 DC 01/23/22 17:15 Mirtazapine (Remeron) 7.5 mg QHS PO 01/30/22 21:00 02/17/22 20:41 Divalproex Sodium (Depakote Sprinkles) 125 mg 0900,1700 PO 01/30/22 17:00 02/03/22 18:27 DC 02/03/22 16:07 Divalproex Sodium (Depakote Sprinkles) 125 mg 0900 PO 02/04/22 09:00 02/11/22 20:41 DC 02/11/22 08:54 Divalproex Sodium (Depakote Sprinkles) 250 mg 1700 PO 02/04/22 17:00 02/11/22 20:41 DC 02/11/22 17:17 Trazodone HCl (Desyrel) 25 mg 1X ONCE PO 02/04/22 09:00 02/04/22 09:01 DC Melatonin (Melatonin) 3 mg QHS PO 02/06/22 21:00 02/17/22 20:41 Trazodone HCl (Desyrel) 25 mg 1700 PO 02/08/22 17:00 02/17/22 17:18 Sertraline HCl (Zoloft) 25 mg DAILY PO 02/09/22 09:00 02/11/22 23:50 DC 02/11/22 08:54 Sertraline HCl (Zoloft) 50 mg DAILY PO 02/12/22 09:00 02/17/22 08:10 Magnesium Citrate (Citroma) 296 ml PRN 1X PRN PO 2ND CHOICE CONSTIPATION 02/10/22 21:15 02/11/22 12:47 Docusate Sodium (Colace) 100 mg BID PO 02/11/22 09:00 02/11/22 07:44 DC Docusate Sodium (Colace Solution) 100 mg PRN BID PRN PO HARD STOOLS 02/11/22 07:45 02/11/22 08:50 DC Docusate Sodium (Colace Solution) 100 mg BID PO 02/12/22 09:00 02/17/22 20:38 Aspirin (Aspirin Chewable) 81 mg DAILYWBKFT PO 02/12/22 08:00 02/17/22 08:10 Divalproex Sodium (Depakote Sprinkles) 250 mg DAILY PO 02/12/22 09:00 02/15/22 11:06 DC 02/15/22 08:49 Divalproex Sodium (Depakote Sprinkles) 375 mg DAILYWSUP PO 02/12/22 17:00 02/15/22 11:06 DC 02/14/22 17:00 Amoxicillin (Amoxil) 500 mg [id number] PO 02/14/22 21:00 02/21/22 21:00 02/17/22 20:40 Lactobacillus Rhamnosus (Culturelle) 1 cap BID PO 02/14/22 21:00 02/17/22 20:40 Divalproex Sodium (Depakote Sprinkles) 375 mg 0900,1700 PO 02/15/22 17:00 02/17/22 17:18 Hydroxyzine HCl (Atarax) 25 mg TID PRN PRN PO Anxiety 02/15/22 18:15 I have reviewed the current psychotropics carefully including drug interactions. Risk benefit ratio favors no change other than as noted in my dictated progress note. Diagnosis: Problems: (1) Impulse control disorder, unspecified (2) Anxiety disorder, unspecified (3) Dementia, vascular, with depression (4) Dementia, vascular, with delusions (5) Dementia in Alzheimer's disease with depression (6) Dementia in Alzheimer's disease with delusions (7) Dementia of the Alzheimer's type with early onset with behavioral disturbance (8) Major neurocognitive disorder SANCHEZ JEAN MD Feb 18, 2022 07:13
[2022-02-18] MEDS: PANTOPRAZOLE 40 MG TABLET. PO SCH (07:51)
[2022-02-18] MEDS: DIVALPROEX 125 MG CAP.SPRINK PO SCH (07:51)
[2022-02-18] MEDS: MIRABEGRON 25 MG TAB.ER.24H PO SCH (07:51)
[2022-02-18] MEDS: CETIRIZINE HCL 10 MG TABLET PO SCH (07:52)
[2022-02-18] MEDS: SERTRALINE 25 MG TABLET. PO SCH (07:52)
[2022-02-18] MEDS: ASPIRIN CHEWABLE 81 MG TABLET. PO SCH (07:52)
[2022-02-18] MEDS: LISINOPRIL 10 MG TABLET PO SCH (07:52)
[2022-02-18] MEDS: LACTOBACILLUS RHAMNOSUS GG 1 CAPSULE. PO SCH ×2 (07:52→20:28)
[2022-02-18] MEDS: METOPROLOL TART IMMED RELEASE 25 MG TABLET. PO SCH ×2 (07:52→20:29)
[2022-02-18] MEDS: AMOXICILLIN 250 MG CAPSULE PO SCH ×3 (07:53→20:31)
[2022-02-18] MEDS: DOCUSATE 100 MG/10 ML SOLUTION. PO SCH ×2 (07:53→20:30)
[2022-02-18 08:42] LABS: BASO % 1 % (0-3); EOS # 0.2 x10^3/uL (0.0-0.7); EOS % 6 % (0-3); HEMATOCRIT 39.7 % (39.0-53.0); HEMOGLOBIN 12.8 g/dL (13.0-17.5); LYMPH # 1.3 x10^3/uL (1.0-4.8); LYMPH % 37 % (24-48); MEAN CORPUSCULAR HEMOGLOBIN 29 pg (25-35); MEAN CORPUSCULAR HGB CONC 32 g/dL (31-37); MEAN CORPUSCULAR VOLUME 89 fL (79-100); MONO # 0.4 x10^3/uL (0.0-1.1); MONO % 12 % (0-9); NEUT # 1.6 x10^3uL (1.8-7.7); NEUT % 43 % (31-73); PLATELET COUNT 93 x10^3/uL (140-400); RED BLOOD COUNT 4.45 x10^6/uL (4.30-5.70); RED CELL DISTRIBUTION WIDTH 14.4 % (11.5-14.5); WHITE BLOOD COUNT 3.6 x10^3/uL (4.0-11.0)
[2022-02-18 08:52] LABS: VAL ACID 55 mcg/mL (50-100)
[2022-02-18 09:16] LABS: ALBUMIN 2.8 g/dL (3.4-5.0); ALBUMIN/GLOBULIN RATIO 0.9 (1.0-1.7); CALCIUM 8.9 mg/dL (8.5-10.1); CREATININE 1.2 mg/dL (0.7-1.3); GFR 58.7; POTASSIUM 4.1 mmol/L (3.5-5.1); TOTAL BILIRUBIN 0.4 mg/dL (0.2-1.0); TOTAL PROTEIN 5.9 g/dL (6.4-8.2)
[2022-02-18 15:43] VITALS: BP 118/71
[2022-02-18] MEDS: traZODone 50 MG TABLET. PO SCH (16:56)
[2022-02-18] MEDS: ATORVASTATIN CALCIUM 20 MG TABLET PO SCH (20:27)
[2022-02-18] MEDS: MIRTAZAPINE 7.5 MG TABLET. PO SCH (20:28)
[2022-02-18] MEDS: traZODone 50 MG TABLET. PO PRN (20:28)
[2022-02-18] MEDS: MELATONIN 3 MG TABLET PO SCH (20:29)
[2022-02-18] MEDS: MAGNESIUM HYDROXIDE 2,400 MG/30 ML ORAL.SUSP. PO PRN (20:31)
--- NOTE | 2022-02-18 21:57 | PDOC ---
Exam Note: Bernard Note: Please also refer to the separate dictated note~for this date of service dictated separately.~Patient seen individually. Discussed the patient with Nursing staff reviewed the chart.~Reviewed interim history and current functioning. Reviewed vital signs,~Labs/ Radiology~and current medications noted below. Continue current treatment with the changes noted in the dictated addendum note Assessment: Vital Signs/I&O: Vital Signs Date Time Temp Pulse Resp B/P (MAP) Pulse Ox O2 Delivery O2 Flow Rate FiO2 02/18/22 20:29 77 118/71 02/18/22 15:43 97.6 22 98 Room Air I & O 02/17/22 02/17/22 02/18/22 14:59 22:59 06:59 Intake Total 240 ml 840 ml Balance 240 ml 840 ml Labs: Laboratory Tests Test 02/18/22 08:10 White Blood Count 3.6 x10^3/uL (4.0-11.0) L Red Blood Count 4.45 x10^6/uL (4.30-5.70) Hemoglobin 12.8 g/dL (13.0-17.5) L Hematocrit 39.7 % (39.0-53.0) Mean Corpuscular Volume 89 fL (79-100) Mean Corpuscular Hemoglobin 29 pg (25-35) Mean Corpuscular Hemoglobin Concent 32 g/dL (31-37) Red Cell Distribution Width 14.4 % (11.5-14.5) Platelet Count 93 x10^3/uL (140-400) L Neutrophils (%) (Auto) 43 % (31-73) Lymphocytes (%) (Auto) 37 % (24-48) Monocytes (%) (Auto) 12 % (0-9) H Eosinophils (%) (Auto) 6 % (0-3) H Basophils (%) (Auto) 1 % (0-3) Neutrophils # (Auto) 1.6 x10^3uL (1.8-7.7) L Lymphocytes # (Auto) 1.3 x10^3/uL (1.0-4.8) Monocytes # (Auto) 0.4 x10^3/uL (0.0-1.1) Eosinophils # (Auto) 0.2 x10^3/uL (0.0-0.7) Basophils # (Auto) 0.0 x10^3/uL (0.0-0.2) Sodium Level 148 mmol/L (136-145) H Potassium Level 4.1 mmol/L (3.5-5.1) Chloride Level 110 mmol/L (98-107) H Carbon Dioxide Level 34 mmol/L (21-32) H Anion Gap 4 (6-14) L Blood Urea Nitrogen 26 mg/dL (8-26) Creatinine 1.2 mg/dL (0.7-1.3) Estimated GFR (Cockcroft-Gault) 58.7 BUN/Creatinine Ratio 22 (6-20) H Glucose Level 87 mg/dL (70-99) Calcium Level 8.9 mg/dL (8.5-10.1) Total Bilirubin 0.4 mg/dL (0.2-1.0) Aspartate Amino Transferase (AST) 27 U/L (15-37) Alanine Aminotransferase (ALT) 24 U/L (16-63) Alkaline Phosphatase 57 U/L (46-116) Ammonia 10 mcmol/L (11-34) L Total Protein 5.9 g/dL (6.4-8.2) L Albumin 2.8 g/dL (3.4-5.0) L Albumin/Globulin Ratio 0.9 (1.0-1.7) L Valproic Acid Level 55 mcg/mL (50-100) Valproic Acid Last Dose Date 02/17/22 Valproic Acid Last Dose Time 1700 Current Medications: Meds: Laboratory Tests Test 02/18/22 08:10 White Blood Count 3.6 x10^3/uL Red Blood Count 4.45 x10^6/uL Hemoglobin 12.8 g/dL Hematocrit 39.7 % Mean Corpuscular Volume 89 fL Mean Corpuscular Hemoglobin 29 pg Mean Corpuscular Hemoglobin Concent 32 g/dL Red Cell Distribution Width 14.4 % Platelet Count 93 x10^3/uL Neutrophils (%) (Auto) 43 % Lymphocytes (%) (Auto) 37 % Monocytes (%) (Auto) 12 % Eosinophils (%) (Auto) 6 % Basophils (%) (Auto) 1 % Neutrophils # (Auto) 1.6 x10^3uL Lymphocytes # (Auto) 1.3 x10^3/uL Monocytes # (Auto) 0.4 x10^3/uL Eosinophils # (Auto) 0.2 x10^3/uL Basophils # (Auto) 0.0 x10^3/uL Sodium Level 148 mmol/L Potassium Level 4.1 mmol/L Chloride Level 110 mmol/L Carbon Dioxide Level 34 mmol/L Anion Gap 4 Blood Urea Nitrogen 26 mg/dL Creatinine 1.2 mg/dL Estimated GFR (Cockcroft-Gault) 58.7 BUN/Creatinine Ratio 22 Glucose Level 87 mg/dL Calcium Level 8.9 mg/dL Total Bilirubin 0.4 mg/dL Aspartate Amino Transf (AST/SGOT) 27 U/L Alanine Aminotransferase (ALT/SGPT) 24 U/L Alkaline Phosphatase 57 U/L Ammonia 10 mcmol/L Total Protein 5.9 g/dL Albumin 2.8 g/dL Albumin/Globulin Ratio 0.9 Valproic Acid (Depakene) Level 55 mcg/mL Valproic Acid Last Dose Date 02/17/22 Valproic Acid Last Dose Time 1700 Current Medications Medications (Trade) Dose Ordered Sig/Leoncio Route PRN Reason Start Time Stop Time Status Last Admin Dose Admin Alprazolam (Xanax) 0.25 mg PRN QHS PRN PO ANXIETY / AGITATION 01/22/22 16:30 02/15/22 16:17 Aspirin (Aspirin Enteric Coated) 81 mg DAILY PO 01/23/22 09:00 02/11/22 14:16 DC 02/11/22 08:54 Donepezil HCl (Aricept) 10 mg QHS PO 01/22/22 21:00 01/24/22 16:39 DC 01/23/22 21:36 Haloperidol (Haldol) 0.5 mg PRN TID PRN PO AGITATION 01/22/22 16:30 01/22/22 16:57 DC 01/22/22 16:29 Memantine (Namenda) 10 mg BID PO 01/22/22 21:00 01/24/22 16:38 DC 01/24/22 09:00 Metoprolol Tartrate (Lopressor) 25 mg BID PO 01/22/22 21:00 02/18/22 20:29 Lisinopril (Prinivil) 10 mg DAILY PO 01/23/22 09:00 02/18/22 07:52 Cetirizine HCl (ZyrTEC) 10 mg DAILY PO 01/23/22 09:00 02/18/22 07:52 Mirabegron (Myrbetriq) 50 mg DAILY PO 01/23/22 09:00 02/18/22 07:51 Pantoprazole Sodium (Protonix) 40 mg DAILYAC PO 01/23/22 07:30 02/18/22 07:51 Atorvastatin Calcium (Lipitor) 80 mg QHS PO 01/22/22 21:00 02/18/22 20:27 Acetaminophen (Tylenol) 650 mg PRN Q6HRS PRN PO MILD PAIN / TEMP > 100.3'F 01/22/22 16:45 02/02/22 09:31 Multi-Ingredient Ointment (Analgesic Guffey) 1 dalton PRN QID PRN TP MUSCLE PAIN 01/22/22 16:45 Al Hydroxide/Mg Hydroxide (Mylanta Plus Xs) 15 ml PRN AFTMEALHC PRN PO DYSPEPSIA 01/22/22 16:45 Magnesium Hydroxide (Milk Of Magnesia) 2,400 mg PRN QHS PRN PO 1ST CHOICE CONSTIPATION 01/22/22 16:45 02/18/22 20:31 Olanzapine (ZyPREXA) 2.5 mg PRN Q2HR PRN PO AGITATION 01/22/22 17:00 01/22/22 17:06 DC Olanzapine (ZyPREXA ZYDIS) 2.5 mg PRN Q2HRS PRN PO PSYCHOSIS 01/22/22 17:15 02/16/22 17:32 Trazodone HCl (Desyrel) 50 mg PRN QHS PRN PO insomnia 01/22/22 21:45 02/18/22 20:28 Trazodone HCl (Desyrel) 25 mg DAILY PO 01/23/22 15:30 01/23/22 16:22 DC 01/23/22 15:30 Trazodone HCl (Desyrel) 25 mg 0900,1300,1700 PO 01/23/22 17:00 02/08/22 10:24 DC 02/07/22 17:28 Sodium Chloride 1,000 ml @ 1,000 mls/hr 1X ONCE IV 01/23/22 17:15 01/23/22 18:14 DC 01/23/22 17:15 Mirtazapine (Remeron) 7.5 mg QHS PO 01/30/22 21:00 02/18/22 20:28 Divalproex Sodium (Depakote Sprinkles) 125 mg 0900,1700 PO 01/30/22 17:00 02/03/22 18:27 DC 02/03/22 16:07 Divalproex Sodium (Depakote Sprinkles) 125 mg 0900 PO 02/04/22 09:00 02/11/22 20:41 DC 02/11/22 08:54 Divalproex Sodium (Depakote Sprinkles) 250 mg 1700 PO 02/04/22 17:00 02/11/22 20:41 DC 02/11/22 17:17 Trazodone HCl (Desyrel) 25 mg 1X ONCE PO 02/04/22 09:00 02/04/22 09:01 DC Melatonin (Melatonin) 3 mg QHS PO 02/06/22 21:00 02/18/22 20:29 Trazodone HCl (Desyrel) 25 mg 1700 PO 02/08/22 17:00 02/18/22 16:56 Sertraline HCl (Zoloft) 25 mg DAILY PO 02/09/22 09:00 02/11/22 23:50 DC 02/11/22 08:54 Sertraline HCl (Zoloft) 50 mg DAILY PO 02/12/22 09:00 02/18/22 07:52 Magnesium Citrate (Citroma) 296 ml PRN 1X PRN PO 2ND CHOICE CONSTIPATION 02/10/22 21:15 02/11/22 12:47 Docusate Sodium (Colace) 100 mg BID PO 02/11/22 09:00 02/11/22 07:44 DC Docusate Sodium (Colace Solution) 100 mg PRN BID PRN PO HARD STOOLS 02/11/22 07:45 02/11/22 08:50 DC Docusate Sodium (Colace Solution) 100 mg BID PO 02/12/22 09:00 02/18/22 20:30 Aspirin (Aspirin Chewable) 81 mg DAILYWBKFT PO 02/12/22 08:00 02/18/22 07:52 Divalproex Sodium (Depakote Sprinkles) 250 mg DAILY PO 02/12/22 09:00 02/15/22 11:06 DC 02/15/22 08:49 Divalproex Sodium (Depakote Sprinkles) 375 mg DAILYWSUP PO 02/12/22 17:00 02/15/22 11:06 DC 02/14/22 17:00 Amoxicillin (Amoxil) 500 mg [id number] PO 02/14/22 21:00 02/21/22 21:00 02/18/22 20:31 Lactobacillus Rhamnosus (Culturelle) 1 cap BID PO 02/14/22 21:00 02/18/22 20:28 Divalproex Sodium (Depakote Sprinkles) 375 mg 0900,1700 PO 02/15/22 17:00 02/18/22 09:43 DC 02/18/22 07:51 Hydroxyzine HCl (Atarax) 25 mg TID PRN PRN PO Anxiety 02/15/22 18:15 I have reviewed the current psychotropics carefully including drug interactions. Risk benefit ratio favors no change other than as noted in my dictated progress note. Diagnosis: Problems: (1) Impulse control disorder, unspecified (2) Anxiety disorder, unspecified (3) Dementia, vascular, with depression (4) Dementia, vascular, with delusions (5) Dementia in Alzheimer's disease with depression (6) Dementia in Alzheimer's disease with delusions (7) Dementia of the Alzheimer's type with early onset with behavioral disturbance (8) Major neurocognitive disorder SANCHEZ JEAN MD Feb 18, 2022 21:57
--- NOTE | 2022-02-18 23:03 | PN ---
DATE: 01/24/2022 SUBJECTIVE: The patient has not had any recurrent seizure-like activities since yesterday. There are no new medical or neurological complaints. OBJECTIVE: GENERAL: A well-developed, well-nourished male, in no acute distress. He weighs 90.7 kilos. VITAL SIGNS: Blood pressure 154/69, respiratory rate is 16, pulse is 66 and regular, temperature 97.3, oxygen saturation 95% on room air. HEENT: Normocephalic, atraumatic. otherwise unremarkable. NECK: Supple, negative for carotid bruit, lymphadenopathy or thyromegaly. LUNGS: Clear to A and P. CARDIOVASCULAR: Regular rate and rhythm, normal S1, S2. There is no S3, no S4, murmur. ABDOMEN: Soft. Bowel sounds positive. EXTREMITIES: Negative for cyanosis, clubbing or pedal edema. NEUROLOGICAL EXAMINATION: Mental status: The patient is awake, alert, but disoriented to x3. Speech is slow and sometimes noncoherent. Memory, judgment and abstracting thinking are poor. There is no hallucination. Cranial nerves are grossly intact. Motor examination: No focal muscle bulk wasting. The strength was 5/5 throughout. Sensory examination revealed normal pinprick and light touch senses. Deep tendon reflexes were symmetric and hypoactive with absent Achilles responses. Gait: The patient walked without assistance. IMPRESSION: 1. Seizure-like activities at home described by patient's as tremor and sometimes jerking movement with loss of consciousness, but the patient has not had any events since admission. 2. Multiple medical problems include coronary artery disease, diabetes mellitus, hypertension, benign prostate hypertrophy and Flowers's esophagus. 3. Dementia, intermittent behavior disturbances, anxiety and impulse control. RECOMMENDATIONS: 1. Continue with current medical and psychiatric care. 2. Await for electroencephalogram which was ordered yesterday. KYLAH/GARCÍA DR: Mariama TID: [id number]
--- NOTE | 2022-02-18 23:03 | PN ---
DATE: 01/26/2022 SUBJECTIVE: The patient continued to be disoriented and unable to provide any information. No seizure-like activity has been reported since admission. Otherwise, not reported any falls or head injuries. OBJECTIVE: GENERAL: A well-developed, well-nourished male, not in acute distress. VITAL SIGNS: Blood pressure 137/66, respiratory rate 18, temperature 97.3, pulse is 73, and oxygen saturation 94% on room air. HEENT: Normocephalic, atraumatic. otherwise unremarkable. NECK: Supple, negative for carotid bruit, lymphadenopathy or thyromegaly. LUNGS: Clear to A and P. CARDIOVASCULAR: Regular rate and rhythm, normal S1, S2. ABDOMEN: Soft. Bowel sounds positive. EXTREMITIES: Negative for cyanosis, clubbing or pedal edema. NEUROLOGIC: The patient continued to be disoriented. He has difficulty to communicate probably due to underlying dementia. Cranial nerves are intact. No focal motor or sensory deficits. Deep tendon reflexes were symmetric and hypoactive with absent Achilles responses. Gait is normal without assistance. IMPRESSION: 1. Seizure-like activities reported by patient's ; however, the patient has not had any recurrent seizures since admission. Tremor versus nonepileptic seizure is a possibility. 2. Multiple medical problems include hypertension, hyperlipidemia, diabetes mellitus, coronary artery disease, benign prostate hypertrophy. 3. Multiple psychiatric problems including behavior disturbances and anxiety disorders. RECOMMENDATIONS: 1. Continue with current medical and psychiatric care. 2. Await for electroencephalogram. KYLAH/EKT DR: Mariama TID: [id number]
--- NOTE | 2022-02-18 23:09 | PN ---
SUBJECTIVE: The patient has not had any recurrent seizure since admission. He has been somewhat restless throughout the day. The patient continued to be disoriented and unable to provide any information. OBJECTIVE: GENERAL: Well-developed, well-nourished male in no acute distress. VITAL SIGNS: Blood pressure 175/92, respiratory rate 18, pulse is 80, temperature is 97.1, oxygen saturation 95% on room air. HEENT: Normocephalic, atraumatic, otherwise unremarkable. NECK: Supple, negative for carotid bruit, no lymphadenopathy or thyromegaly. LUNGS: Clear to A and P. CARDIOVASCULAR: Regular rate and rhythm, normal S1, S2. There is no S3, S4 or murmur. ABDOMEN: Soft. Bowel sounds positive. EXTREMITIES: Negative for cyanosis, clubbing or pedal edema. NEUROLOGIC: The patient is awake, but disoriented x 3. Cranial nerves are intact. No focal motor or sensory deficit. Deep tendon reflexes were asymmetric and hypoactive with absent Achilles responses. Gait: The patient walks without assistance. IMPRESSION: 1. Reported seizure-like activities at home, but no recurrence of seizure-like activities since admission. 2. Multiple medical problems include, hypertension, coronary artery disease, diabetes mellitus, status post coronary artery bypass graft, and prostate hypertrophy. 3. Dementia. 4. Multiple psychiatric problems include behavior disturbances, anxiety, and depressions. RECOMMENDATIONS: 1. Continue with current medical and psychiatric care. 2. Await for electroencephalogram. RENEE DR: Mariama TID: [id number]
--- NOTE | 2022-02-18 23:35 | PN ---
DATE: 02/07/2022 SUBJECTIVE: The patient denies any new medical or neurological complaints. According to the nursing staff, the patient has not had any recurrent seizure-like activities since admission. However, on occasions, he would have intermittent tremor of the upper extremities lasted few seconds. There is no history of recent falls or head injuries. OBJECTIVE: GENERAL: A well-developed, well-nourished male in no acute distress. VITAL SIGNS: Blood pressure 116/54, respiratory rate 18, pulse is 80 and regular, temperature 98.4, oxygen saturation 95% on room air. HEENT: Normocephalic, atraumatic. otherwise unremarkable. NECK: Supple, negative for carotid bruit, lymphadenopathy or thyromegaly. LUNGS: Clear to A and P. CARDIOVASCULAR: Regular rate and rhythm, normal S1, S2. ABDOMEN: Soft. Bowel sounds positive. EXTREMITIES: Negative for cyanosis, clubbing or pedal edema. NEUROLOGIC: Mental status: The patient is alert, but disoriented x3. Speech is slow, but incoherent, judgment and abstracting thinking are poor due to underlying dementia. The patient has been somewhat restless and agitated throughout the day. Cranial nerves are intact. No focal motor or sensory deficit. Deep tendon reflexes were symmetric and hypoactive with absent Achilles responses. Gait: The patient walks without assistance. Depakote level today is 40, which is still low. IMPRESSION: 1. History of seizure-like activities of unknown etiology, describes sometimes has intermittent tremor, but he has not had any seizure activities since admission, the patient may have intermittent tremor versus psychogenic seizure. 2. Multiple medical problems include diabetes mellitus, hypertension, coronary artery disease, benign prostate hypertrophy. 3. Multiple psychiatric problems including depressions, anxiety and behavior disturbances. 4. Dementia of probably Alzheimer type. RECOMMENDATIONS: 1. We will continue with current medical and psychiatric care. 2. Discussed the electroencephalogram with the nursing staff and they stated they will call [facility] for response. RODOLFO DR: Mariama TID: [id number]
[2022-02-19 06:05] VITALS: BP 162/84
--- NOTE | 2022-02-19 07:26 | PDOC ---
Exam Note: Bernard Note: This note is a late entry for 02/16/2022 covers elements not covered in my initial note. Subjective: The patient was seen individually on 02/16/2022, discussed and reviewed the chart with Evelyne MONTALVO. The patient slept 7 hours previous night. He has had a difficult day. He did well in the morning but more confused in the evening. Speech is word salad. Review of Systems: No CV, , pulmonary, eye, ENT system symptoms on review. Reliability poor. Mental Status Exam: The patient is oriented to himself. Insight and judgment, recent and remote memory, attention and concentration, fund of knowledge is poor consistent with his diagnoses. Laboratory Data: Reviewed. Impression: Major neurocognitive disorder, early Alzheimer, vascular with delusion, depression, behavioral disturbance. Anxiety disorder unspecified. Impulse control disorder unspecified. Plan: We will continue to adjust his psychotropics. Patients platelet count has dropped somewhat possibly due to Amoxil for his UTI, perhaps due to Depakote as well which we have recently increased. We will repeat platelets in the morning and keep a close watch on this and defer also to Dr. South. If platelets continue to drop, we may have to stop the Depakote. Assessment: Vital Signs/I&O: Vital Signs Date Time Temp Pulse Resp B/P (MAP) Pulse Ox O2 Delivery O2 Flow Rate FiO2 02/19/22 06:05 97.7 62 16 162/84 (110) 95 02/18/22 15:43 Room Air I & O 02/18/22 02/18/22 02/19/22 15:00 23:00 07:00 Intake Total 360 ml 120 ml Balance 360 ml 120 ml Labs: Laboratory Tests Test 02/18/22 08:10 White Blood Count 3.6 x10^3/uL (4.0-11.0) L Red Blood Count 4.45 x10^6/uL (4.30-5.70) Hemoglobin 12.8 g/dL (13.0-17.5) L Hematocrit 39.7 % (39.0-53.0) Mean Corpuscular Volume 89 fL (79-100) Mean Corpuscular Hemoglobin 29 pg (25-35) Mean Corpuscular Hemoglobin Concent 32 g/dL (31-37) Red Cell Distribution Width 14.4 % (11.5-14.5) Platelet Count 93 x10^3/uL (140-400) L Neutrophils (%) (Auto) 43 % (31-73) Lymphocytes (%) (Auto) 37 % (24-48) Monocytes (%) (Auto) 12 % (0-9) H Eosinophils (%) (Auto) 6 % (0-3) H Basophils (%) (Auto) 1 % (0-3) Neutrophils # (Auto) 1.6 x10^3uL (1.8-7.7) L Lymphocytes # (Auto) 1.3 x10^3/uL (1.0-4.8) Monocytes # (Auto) 0.4 x10^3/uL (0.0-1.1) Eosinophils # (Auto) 0.2 x10^3/uL (0.0-0.7) Basophils # (Auto) 0.0 x10^3/uL (0.0-0.2) Sodium Level 148 mmol/L (136-145) H Potassium Level 4.1 mmol/L (3.5-5.1) Chloride Level 110 mmol/L (98-107) H Carbon Dioxide Level 34 mmol/L (21-32) H Anion Gap 4 (6-14) L Blood Urea Nitrogen 26 mg/dL (8-26) Creatinine 1.2 mg/dL (0.7-1.3) Estimated GFR (Cockcroft-Gault) 58.7 BUN/Creatinine Ratio 22 (6-20) H Glucose Level 87 mg/dL (70-99) Calcium Level 8.9 mg/dL (8.5-10.1) Total Bilirubin 0.4 mg/dL (0.2-1.0) Aspartate Amino Transferase (AST) 27 U/L (15-37) Alanine Aminotransferase (ALT) 24 U/L (16-63) Alkaline Phosphatase 57 U/L (46-116) Ammonia 10 mcmol/L (11-34) L Total Protein 5.9 g/dL (6.4-8.2) L Albumin 2.8 g/dL (3.4-5.0) L Albumin/Globulin Ratio 0.9 (1.0-1.7) L Valproic Acid Level 55 mcg/mL (50-100) Valproic Acid Last Dose Date 02/17/22 Valproic Acid Last Dose Time 1700 Current Medications: I have reviewed the current psychotropics carefully including drug interactions. Risk benefit ratio favors no change other than as noted in my dictated progress note. Diagnosis: Problems: (1) Impulse control disorder, unspecified (2) Anxiety disorder, unspecified (3) Dementia, vascular, with depression (4) Dementia, vascular, with delusions (5) Dementia in Alzheimer's disease with depression (6) Dementia in Alzheimer's disease with delusions (7) Dementia of the Alzheimer's type with early onset with behavioral disturbance (8) Major neurocognitive disorder SANCHEZ JEAN MD Feb 19, 2022 07:26
[2022-02-19] MEDS: AMOXICILLIN 250 MG CAPSULE PO SCH ×3 (07:45→19:50)
[2022-02-19] MEDS: LISINOPRIL 10 MG TABLET PO SCH (07:45)
[2022-02-19] MEDS: PANTOPRAZOLE 40 MG TABLET. PO SCH (07:45)
[2022-02-19] MEDS: SERTRALINE 25 MG TABLET. PO SCH (07:45)
--- NOTE | 2022-02-19 07:45 | PDOC ---
Exam Note: Bernard Note: This note is a late entry for 02/17/2022 covers elements not covered in my initial note. Subjective: The patient was seen individually on 02/17/2022, discussed and reviewed the chart with Nneka MONTALVO. The patient slept 7 hours previous night. Platelets are 100. We will repeat it in the morning. He playfully touches others around him, oblivious of how others might feel but this is part of his dementia. Review of Systems: No CV, , pulmonary, eye, ENT system symptoms on review. Reliability poor. Mental Status Exam: The patient is oriented to himself. Insight and judgment, recent and remote memory, attention and concentration, fund of knowledge is poor consistent with his diagnoses. Laboratory Data: Reviewed. Impression: Major neurocognitive disorder, early Alzheimer, vascular with delusion, depression, behavioral disturbance. Anxiety disorder unspecified. Impulse control disorder unspecified. Plan: We will continue to adjust his psychotropics. Assessment: Vital Signs/I&O: Vital Signs Date Time Temp Pulse Resp B/P (MAP) Pulse Ox O2 Delivery O2 Flow Rate FiO2 02/19/22 06:05 97.7 62 16 162/84 (110) 95 02/18/22 15:43 Room Air I & O 02/18/22 02/18/22 02/19/22 15:00 23:00 07:00 Intake Total 360 ml 120 ml Balance 360 ml 120 ml Labs: Laboratory Tests Test 02/18/22 08:10 White Blood Count 3.6 x10^3/uL (4.0-11.0) L Red Blood Count 4.45 x10^6/uL (4.30-5.70) Hemoglobin 12.8 g/dL (13.0-17.5) L Hematocrit 39.7 % (39.0-53.0) Mean Corpuscular Volume 89 fL (79-100) Mean Corpuscular Hemoglobin 29 pg (25-35) Mean Corpuscular Hemoglobin Concent 32 g/dL (31-37) Red Cell Distribution Width 14.4 % (11.5-14.5) Platelet Count 93 x10^3/uL (140-400) L Neutrophils (%) (Auto) 43 % (31-73) Lymphocytes (%) (Auto) 37 % (24-48) Monocytes (%) (Auto) 12 % (0-9) H Eosinophils (%) (Auto) 6 % (0-3) H Basophils (%) (Auto) 1 % (0-3) Neutrophils # (Auto) 1.6 x10^3uL (1.8-7.7) L Lymphocytes # (Auto) 1.3 x10^3/uL (1.0-4.8) Monocytes # (Auto) 0.4 x10^3/uL (0.0-1.1) Eosinophils # (Auto) 0.2 x10^3/uL (0.0-0.7) Basophils # (Auto) 0.0 x10^3/uL (0.0-0.2) Sodium Level 148 mmol/L (136-145) H Potassium Level 4.1 mmol/L (3.5-5.1) Chloride Level 110 mmol/L (98-107) H Carbon Dioxide Level 34 mmol/L (21-32) H Anion Gap 4 (6-14) L Blood Urea Nitrogen 26 mg/dL (8-26) Creatinine 1.2 mg/dL (0.7-1.3) Estimated GFR (Cockcroft-Gault) 58.7 BUN/Creatinine Ratio 22 (6-20) H Glucose Level 87 mg/dL (70-99) Calcium Level 8.9 mg/dL (8.5-10.1) Total Bilirubin 0.4 mg/dL (0.2-1.0) Aspartate Amino Transferase (AST) 27 U/L (15-37) Alanine Aminotransferase (ALT) 24 U/L (16-63) Alkaline Phosphatase 57 U/L (46-116) Ammonia 10 mcmol/L (11-34) L Total Protein 5.9 g/dL (6.4-8.2) L Albumin 2.8 g/dL (3.4-5.0) L Albumin/Globulin Ratio 0.9 (1.0-1.7) L Valproic Acid Level 55 mcg/mL (50-100) Valproic Acid Last Dose Date 02/17/22 Valproic Acid Last Dose Time 1700 Current Medications: I have reviewed the current psychotropics carefully including drug interactions. Risk benefit ratio favors no change other than as noted in my dictated progress note. Diagnosis: Problems: (1) Impulse control disorder, unspecified (2) Anxiety disorder, unspecified (3) Dementia, vascular, with depression (4) Dementia, vascular, with delusions (5) Dementia in Alzheimer's disease with depression (6) Dementia in Alzheimer's disease with delusions (7) Dementia of the Alzheimer's type with early onset with behavioral disturbance (8) Major neurocognitive disorder SANCHEZ JEAN MD Feb 19, 2022 07:45
[2022-02-19] MEDS: CETIRIZINE HCL 10 MG TABLET PO SCH (07:46)
[2022-02-19] MEDS: MIRABEGRON 25 MG TAB.ER.24H PO SCH (07:46)
[2022-02-19] MEDS: LACTOBACILLUS RHAMNOSUS GG 1 CAPSULE. PO SCH ×2 (07:46→19:50)
[2022-02-19] MEDS: METOPROLOL TART IMMED RELEASE 25 MG TABLET. PO SCH ×2 (07:46→19:51)
[2022-02-19] MEDS: DOCUSATE 100 MG/10 ML SOLUTION. PO SCH ×2 (07:46→19:51)
[2022-02-19] MEDS: ASPIRIN CHEWABLE 81 MG TABLET. PO SCH (07:46)
--- NOTE | 2022-02-19 08:27 | PDOC ---
Exam Note: Bernard Note: This note is a late entry for 02/18/2022 covers elements not covered in my initial note. Subjective: The patient was seen on telehealth rounds with herrera Nunez on 02/18/2022, discussed and reviewed the chart with Nneka MONTALVO. Per nursing report the patient slept well last night. I had a call from Agnes MONTALVO this morning. Platelets have dropped further over the last couple of days and Depakote will be contributing to this. We will go ahead and stop the Depakote. Discharge plan was scheduled for Saturday but we will postpone discharge to make sure he is stable without the Depakote and monitor the platelets as well. He has not been aggressive. Review of Systems: No CV, , pulmonary, eye, ENT system symptoms on review. Reliability poor. Mental Status Exam: The patient is oriented to himself. Insight and judgment, recent and remote memory, attention and concentration, fund of knowledge is poor consistent with his diagnoses. Laboratory Data: Reviewed. Impression: Major neurocognitive disorder, early Alzheimer, vascular with delusion, depression, behavioral disturbance. Anxiety disorder unspecified. Impulse control disorder unspecified. Plan: Continue rest of the psychotropics except Depakote. He is still on Amoxil for his UTI. Adjust further as clinically indicated. Assessment: Vital Signs/I&O: Vital Signs Date Time Temp Pulse Resp B/P (MAP) Pulse Ox O2 Delivery O2 Flow Rate FiO2 02/19/22 07:46 62 162/84 02/19/22 06:05 97.7 16 95 02/18/22 15:43 Room Air I & O 02/18/22 02/18/22 02/19/22 15:00 23:00 07:00 Intake Total 360 ml 120 ml Balance 360 ml 120 ml Current Medications: I have reviewed the current psychotropics carefully including drug interactions. Risk benefit ratio favors no change other than as noted in my dictated progress note. Diagnosis: Problems: (1) Impulse control disorder, unspecified (2) Anxiety disorder, unspecified (3) Dementia, vascular, with depression (4) Dementia, vascular, with delusions (5) Dementia in Alzheimer's disease with depression (6) Dementia in Alzheimer's disease with delusions (7) Dementia of the Alzheimer's type with early onset with behavioral disturbance (8) Major neurocognitive disorder SANCHEZ JEAN MD Feb 19, 2022 08:27
--- NOTE | 2022-02-19 09:54 | PN ---
DATE: 02/02/2022 SUBJECTIVE: The patient has not had any seizure activity since admission or change in his neurological status. The patient reported being restless, but he eats and drinks well. OBJECTIVE: GENERAL: Well-developed, well-nourished male, not in acute distress. VITAL SIGNS: Blood pressure 128/68, respiratory rate 16, pulse is 59 and regular, temperature 98.1, oxygen saturation 94% on room air. HEENT: Normocephalic, atraumatic, otherwise unremarkable. NECK: Supple, negative for carotid bruit, lymphadenopathy or thyromegaly. LUNGS: Clear to A and P. CARDIOVASCULAR: Regular rate and rhythm, normal S1, S2. There is no S3, S4 or murmur. ABDOMEN: Soft. Bowel sounds positive. There is no palpable mass, organomegaly or tenderness. EXTREMITIES: Negative for cyanosis, clubbing or pedal edema. NEUROLOGIC: Mental status: The patient is awake, but disoriented x3. He was wandering on the floor due to restlessness. He does not provide any information or answer any questions. He has difficulty to communicate probably due to underlying dementia. Memory, judgment and abstracting thinking are poor. Cranial nerves are intact. No focal motor or sensory deficit. Deep tendon reflexes were symmetric and hypoactive with absent Achilles responses. Gait: The patient walks without assistance. LABORATORY DATA: CBC revealed blood cells of 4.3 thousand, hemoglobin 12.4, hematocrit 38, platelet count is 132. Chemistry revealed sodium of 149, potassium 4.6, chloride 110, CO2 of 34, BUN 22, creatinine 1.4, glucose 94. Liver enzymes are normal. Valproic acid is low at 18. IMPRESSION: 1. 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 2. Multiple medical problems include coronary artery disease, benign prostate hypertrophy, hypertension, diabetes mellitus. 3. Dementia and multiple psychiatric problems include anxiety and depression disorders. RECOMMENDATIONS: 1. Continue with current medical and psychiatric care. 2. Await for electroencephalogram - EEG. I spoke with the nurse to recheck on the order for electroencephalogram ____service and [facility]. KYLAH/VY/SHAMAR DR: KYLAH/navid TID: [id number]
--- NOTE | 2022-02-19 09:55 | PN ---
DATE: 02/15/2022 SUBJECTIVE: The patient has not had any seizure-like activity. Per nursing staff, there is no change in his neurological status. However, the patient has been intermittently agitated and restless. He is not able to provide any information. OBJECTIVE: GENERAL: Well-developed, well-nourished male, not in acute distress. VITAL SIGNS: Blood pressure 125/84, respiratory rate 20, pulse is 86, temperature 97.1, oxygen saturation 97% on room air. HEENT: Normocephalic, atraumatic. otherwise unremarkable. NECK: Supple, negative for carotid bruit, lymphadenopathy or thyromegaly. LUNGS: Clear to A and P. CARDIOVASCULAR: Regular rate and rhythm, normal S1, S2. ABDOMEN: Soft. Bowel sounds positive. EXTREMITIES: Negative for cyanosis, clubbing or pedal edema. NEUROLOGIC: Mental status: The patient is awake, alert, but disoriented x 3. Speech is somewhat ____. There is no language dysfunction. Memory, judgment and abstracting thinking are poor. The patient denies hallucination or delusion. Cranial nerves are grossly intact. No focal motor or sensory deficit. Deep tendon reflexes were symmetric and hypoactive with absent Achilles responses. Gait is normal. LABORATORY DATA: Today revealed Depakote level is 52. IMPRESSION: 1. History of seizure-like activities, but no recurrence since admission; however, I have requested to check with the [facility] to obtain an EEG, but there is no response from [facility] about this request so far. 2. Multiple medical problems include diabetes mellitus, hypertension, coronary artery disease, benign prostatic hypertrophy, ____ esophagus. 3. Dementia, probably of Alzheimer's type. 4. Depressions and anxiety disorders. RECOMMENDATIONS: We will continue with current management. We will continue with current psychiatric and medical care. KYLAH/VIKI/SHAMAR DR: KYLAH/navid TID: [id number]
[2022-02-19 12:37] LABS: BASO % 1 % (0-3); EOS # 0.2 x10^3/uL (0.0-0.7); EOS % 4 % (0-3); HEMATOCRIT 41.4 % (39.0-53.0); HEMOGLOBIN 13.3 g/dL (13.0-17.5); LYMPH # 1.5 x10^3/uL (1.0-4.8); LYMPH % 31 % (24-48); MEAN CORPUSCULAR HEMOGLOBIN 29 pg (25-35); MEAN CORPUSCULAR HGB CONC 32 g/dL (31-37); MEAN CORPUSCULAR VOLUME 89 fL (79-100); MONO # 0.5 x10^3/uL (0.0-1.1); MONO % 10 % (0-9); NEUT # 2.7 x10^3uL (1.8-7.7); NEUT % 55 % (31-73); PLATELET COUNT 110 x10^3/uL (140-400); RED BLOOD COUNT 4.63 x10^6/uL (4.30-5.70); RED CELL DISTRIBUTION WIDTH 14.3 % (11.5-14.5); WHITE BLOOD COUNT 4.9 x10^3/uL (4.0-11.0)
[2022-02-19 15:37] VITALS: BP 134/89
[2022-02-19] MEDS: traZODone 50 MG TABLET. PO SCH (17:15)
[2022-02-19] MEDS: ATORVASTATIN CALCIUM 20 MG TABLET PO SCH (19:50)
[2022-02-19] MEDS: MIRTAZAPINE 7.5 MG TABLET. PO SCH (19:51)
[2022-02-19] MEDS: MELATONIN 3 MG TABLET PO SCH (19:51)
--- NOTE | 2022-02-19 22:01 | PDOC ---
Exam Note: Bernard Note: Please also refer to the separate dictated note~for this date of service dictated separately.~Patient seen individually. Discussed the patient with Nursing staff reviewed the chart.~Reviewed interim history and current functioning. Reviewed vital signs,~Labs/ Radiology~and current medications noted below. Continue current treatment with the changes noted in the dictated addendum note Assessment: Vital Signs/I&O: Vital Signs Date Time Temp Pulse Resp B/P (MAP) Pulse Ox O2 Delivery O2 Flow Rate FiO2 02/19/22 19:51 107 134/89 02/19/22 15:37 97.0 20 96 02/18/22 15:43 Room Air I & O 02/18/22 02/18/22 02/19/22 15:00 23:00 07:00 Intake Total 360 ml 120 ml Balance 360 ml 120 ml Labs: Laboratory Tests Test 02/19/22 12:18 White Blood Count 4.9 x10^3/uL (4.0-11.0) Red Blood Count 4.63 x10^6/uL (4.30-5.70) Hemoglobin 13.3 g/dL (13.0-17.5) Hematocrit 41.4 % (39.0-53.0) Mean Corpuscular Volume 89 fL (79-100) Mean Corpuscular Hemoglobin 29 pg (25-35) Mean Corpuscular Hemoglobin Concent 32 g/dL (31-37) Red Cell Distribution Width 14.3 % (11.5-14.5) Platelet Count 110 x10^3/uL (140-400) L Neutrophils (%) (Auto) 55 % (31-73) Lymphocytes (%) (Auto) 31 % (24-48) Monocytes (%) (Auto) 10 % (0-9) H Eosinophils (%) (Auto) 4 % (0-3) H Basophils (%) (Auto) 1 % (0-3) Neutrophils # (Auto) 2.7 x10^3uL (1.8-7.7) Lymphocytes # (Auto) 1.5 x10^3/uL (1.0-4.8) Monocytes # (Auto) 0.5 x10^3/uL (0.0-1.1) Eosinophils # (Auto) 0.2 x10^3/uL (0.0-0.7) Basophils # (Auto) 0.0 x10^3/uL (0.0-0.2) Current Medications: Meds: Laboratory Tests Test 02/19/22 12:18 White Blood Count 4.9 x10^3/uL Red Blood Count 4.63 x10^6/uL Hemoglobin 13.3 g/dL Hematocrit 41.4 % Mean Corpuscular Volume 89 fL Mean Corpuscular Hemoglobin 29 pg Mean Corpuscular Hemoglobin Concent 32 g/dL Red Cell Distribution Width 14.3 % Platelet Count 110 x10^3/uL Neutrophils (%) (Auto) 55 % Lymphocytes (%) (Auto) 31 % Monocytes (%) (Auto) 10 % Eosinophils (%) (Auto) 4 % Basophils (%) (Auto) 1 % Neutrophils # (Auto) 2.7 x10^3uL Lymphocytes # (Auto) 1.5 x10^3/uL Monocytes # (Auto) 0.5 x10^3/uL Eosinophils # (Auto) 0.2 x10^3/uL Basophils # (Auto) 0.0 x10^3/uL Current Medications Medications (Trade) Dose Ordered Sig/Leoncio Route PRN Reason Start Time Stop Time Status Last Admin Dose Admin Alprazolam (Xanax) 0.25 mg PRN QHS PRN PO 2nd choice ANXIETY / AGITATION 01/22/22 16:30 02/15/22 16:17 Aspirin (Aspirin Enteric Coated) 81 mg DAILY PO 01/23/22 09:00 02/11/22 14:16 DC 02/11/22 08:54 Donepezil HCl (Aricept) 10 mg QHS PO 01/22/22 21:00 01/24/22 16:39 DC 01/23/22 21:36 Haloperidol (Haldol) 0.5 mg PRN TID PRN PO AGITATION 01/22/22 16:30 01/22/22 16:57 DC 01/22/22 16:29 Memantine (Namenda) 10 mg BID PO 01/22/22 21:00 01/24/22 16:38 DC 01/24/22 09:00 Metoprolol Tartrate (Lopressor) 25 mg BID PO 01/22/22 21:00 02/19/22 19:51 Lisinopril (Prinivil) 10 mg DAILY PO 01/23/22 09:00 02/19/22 07:45 Cetirizine HCl (ZyrTEC) 10 mg DAILY PO 01/23/22 09:00 02/19/22 07:46 Mirabegron (Myrbetriq) 50 mg DAILY PO 01/23/22 09:00 02/19/22 07:46 Pantoprazole Sodium (Protonix) 40 mg DAILYAC PO 01/23/22 07:30 02/19/22 07:45 Atorvastatin Calcium (Lipitor) 80 mg QHS PO 01/22/22 21:00 02/19/22 19:50 Acetaminophen (Tylenol) 650 mg PRN Q6HRS PRN PO MILD PAIN / TEMP > 100.3'F 01/22/22 16:45 02/02/22 09:31 Multi-Ingredient Ointment (Analgesic [place]) 1 [place] PRN QID PRN TP MUSCLE PAIN 01/22/22 16:45 Al Hydroxide/Mg Hydroxide (Mylanta Plus Xs) 15 ml PRN AFTMEALHC PRN PO DYSPEPSIA 01/22/22 16:45 Magnesium Hydroxide (Milk Of Magnesia) 2,400 mg PRN QHS PRN PO 1ST CHOICE CONSTIPATION 01/22/22 16:45 02/18/22 20:31 Olanzapine (ZyPREXA) 2.5 mg PRN Q2HR PRN PO AGITATION 01/22/22 17:00 01/22/22 17:06 DC Olanzapine (ZyPREXA ZYDIS) 2.5 mg PRN Q2HRS PRN PO PSYCHOSIS 01/22/22 17:15 02/16/22 17:32 Trazodone HCl (Desyrel) 50 mg PRN QHS PRN PO insomnia 01/22/22 21:45 02/18/22 20:28 Trazodone HCl (Desyrel) 25 mg DAILY PO 01/23/22 15:30 01/23/22 16:22 DC 01/23/22 15:30 Trazodone HCl (Desyrel) 25 mg 0900,1300,1700 PO 01/23/22 17:00 02/08/22 10:24 DC 02/07/22 17:28 Sodium Chloride 1,000 ml @ 1,000 mls/hr 1X ONCE IV 01/23/22 17:15 01/23/22 18:14 DC 01/23/22 17:15 Mirtazapine (Remeron) 7.5 mg QHS PO 01/30/22 21:00 02/19/22 19:51 Divalproex Sodium (Depakote Sprinkles) 125 mg 0900,1700 PO 01/30/22 17:00 02/03/22 18:27 DC 02/03/22 16:07 Divalproex Sodium (Depakote Sprinkles) 125 mg 0900 PO 02/04/22 09:00 02/11/22 20:41 DC 02/11/22 08:54 Divalproex Sodium (Depakote Sprinkles) 250 mg 1700 PO 02/04/22 17:00 02/11/22 20:41 DC 02/11/22 17:17 Trazodone HCl (Desyrel) 25 mg 1X ONCE PO 02/04/22 09:00 02/04/22 09:01 DC Melatonin (Melatonin) 3 mg QHS PO 02/06/22 21:00 02/19/22 19:51 Trazodone HCl (Desyrel) 25 mg 1700 PO 02/08/22 17:00 02/19/22 17:15 Sertraline HCl (Zoloft) 25 mg DAILY PO 02/09/22 09:00 02/11/22 23:50 DC 02/11/22 08:54 Sertraline HCl (Zoloft) 50 mg DAILY PO 02/12/22 09:00 02/19/22 07:45 Magnesium Citrate (Citroma) 296 ml PRN 1X PRN PO 2ND CHOICE CONSTIPATION 02/10/22 21:15 02/11/22 12:47 Docusate Sodium (Colace) 100 mg BID PO 02/11/22 09:00 02/11/22 07:44 DC Docusate Sodium (Colace Solution) 100 mg PRN BID PRN PO HARD STOOLS 02/11/22 07:45 02/11/22 08:50 DC Docusate Sodium (Colace Solution) 100 mg BID PO 02/12/22 09:00 02/19/22 19:51 Aspirin (Aspirin Chewable) 81 mg DAILYWBKFT PO 02/12/22 08:00 02/19/22 07:46 Divalproex Sodium (Depakote Sprinkles) 250 mg DAILY PO 02/12/22 09:00 02/15/22 11:06 DC 02/15/22 08:49 Divalproex Sodium (Depakote Sprinkles) 375 mg DAILYWSUP PO 02/12/22 17:00 02/15/22 11:06 DC 02/14/22 17:00 Amoxicillin (Amoxil) 500 mg [id number] PO 02/14/22 21:00 02/21/22 21:00 02/19/22 19:50 Lactobacillus Rhamnosus (Culturelle) 1 cap BID PO 02/14/22 21:00 02/19/22 19:50 Divalproex Sodium (Depakote Sprinkles) 375 mg 0900,1700 PO 02/15/22 17:00 02/18/22 09:43 DC 02/18/22 07:51 Hydroxyzine HCl (Atarax) 25 mg TID PRN PRN PO 1st choice Anxiety 02/15/22 18:15 02/19/22 15:30 I have reviewed the current psychotropics carefully including drug interactions. Risk benefit ratio favors no change other than as noted in my dictated progress note. Diagnosis: Problems: (1) Impulse control disorder, unspecified (2) Anxiety disorder, unspecified (3) Dementia, vascular, with depression (4) Dementia, vascular, with delusions (5) Dementia in Alzheimer's disease with depression (6) Dementia in Alzheimer's disease with delusions (7) Dementia of the Alzheimer's type with early onset with behavioral disturbance (8) Major neurocognitive disorder SANCHEZ JEAN MD Feb 19, 2022 22:01
[2022-02-20] MEDS ORDERED: AMOX-260 PO (04:08)
[2022-02-20] MEDS ORDERED: ACET325T9 PO (04:10)
[2022-02-20] MEDS ORDERED: MIRT7.5T8 PO (04:11)
[2022-02-20] MEDS ORDERED: SERT50TA PO (04:11)
[2022-02-20] MEDS ORDERED: TRAZ-120 PO ×2 (04:12→04:13)
[2022-02-20] MEDS ORDERED: OLAN2.5T3 PO (04:15)
[2022-02-20] MEDS ORDERED: HYDR25TA PO (04:19)
[2022-02-20] MEDS ORDERED: MAG30ORA2 PO (04:20)
[2022-02-20] MEDS ORDERED: DOCU50LI12 PO (04:23)
[2022-02-20] MEDS ORDERED: MAGN296S68 PO (04:24)
[2022-02-20] MEDS ORDERED: MAGN400O7 PO (04:25)
[2022-02-20] MEDS ORDERED: LACT1CAP21 PO (04:26)
[2022-02-20] MEDS ORDERED: MELA3TAB4 PO (04:27)
[2022-02-20 06:31] VITALS: BP 150/81
[2022-02-20] MEDS: AMOXICILLIN 250 MG CAPSULE PO SCH ×3 (07:40→20:56)
[2022-02-20] MEDS: DOCUSATE 100 MG/10 ML SOLUTION. PO SCH ×2 (07:40→20:55)
[2022-02-20] MEDS: MIRABEGRON 25 MG TAB.ER.24H PO SCH (07:40)
[2022-02-20] MEDS: SERTRALINE 25 MG TABLET. PO SCH (07:41)
[2022-02-20] MEDS: METOPROLOL TART IMMED RELEASE 25 MG TABLET. PO SCH ×2 (07:41→20:56)
[2022-02-20] MEDS: LACTOBACILLUS RHAMNOSUS GG 1 CAPSULE. PO SCH ×2 (07:41→20:55)
[2022-02-20] MEDS: PANTOPRAZOLE 40 MG TABLET. PO SCH (07:41)
[2022-02-20] MEDS: LISINOPRIL 10 MG TABLET PO SCH (07:41)
[2022-02-20] MEDS: CETIRIZINE HCL 10 MG TABLET PO SCH (07:41)
[2022-02-20] MEDS: ASPIRIN CHEWABLE 81 MG TABLET. PO SCH (07:41)
[2022-02-20 07:58] LABS: BASO % 1 % (0-3); EOS # 0.2 x10^3/uL (0.0-0.7); EOS % 5 % (0-3); HEMATOCRIT 43.8 % (39.0-53.0); HEMOGLOBIN 14.1 g/dL (13.0-17.5); LYMPH # 1.6 x10^3/uL (1.0-4.8); LYMPH % 31 % (24-48); MEAN CORPUSCULAR HEMOGLOBIN 29 pg (25-35); MEAN CORPUSCULAR HGB CONC 32 g/dL (31-37); MEAN CORPUSCULAR VOLUME 90 fL (79-100); MONO # 0.5 x10^3/uL (0.0-1.1); MONO % 10 % (0-9); NEUT # 2.6 x10^3uL (1.8-7.7); NEUT % 53 % (31-73); PLATELET COUNT 99 x10^3/uL (140-400); RED BLOOD COUNT 4.86 x10^6/uL (4.30-5.70); RED CELL DISTRIBUTION WIDTH 14.3 % (11.5-14.5)
[2022-02-20 15:33] VITALS: BP 110/68
[2022-02-20] MEDS: traZODone 50 MG TABLET. PO SCH (17:07)
[2022-02-20] MEDS: MELATONIN 3 MG TABLET PO SCH (20:55)
[2022-02-20] MEDS: ATORVASTATIN CALCIUM 20 MG TABLET PO SCH (20:55)
[2022-02-20] MEDS: MIRTAZAPINE 7.5 MG TABLET. PO SCH (20:56)
[2022-02-20] MEDS: traZODone 50 MG TABLET. PO PRN (20:56)
--- NOTE | 2022-02-20 21:56 | PDOC ---
Exam Note: Bernard Note: Please also refer to the separate dictated note~for this date of service dictated separately.~Patient seen individually. Discussed the patient with Nursing staff reviewed the chart.~Reviewed interim history and current functioning. Reviewed vital signs,~Labs/ Radiology~and current medications noted below. Continue current treatment with the changes noted in the dictated addendum note Assessment: Vital Signs/I&O: Vital Signs Date Time Temp Pulse Resp B/P (MAP) Pulse Ox O2 Delivery O2 Flow Rate FiO2 02/20/22 20:56 84 110/68 02/20/22 15:33 98.1 18 97 02/18/22 15:43 Room Air I & O 02/19/22 02/19/22 02/20/22 15:00 23:00 07:00 Intake Total 840 ml 720 ml Balance 840 ml 720 ml Labs: Laboratory Tests Test 02/20/22 07:50 White Blood Count 5.0 x10^3/uL (4.0-11.0) Red Blood Count 4.86 x10^6/uL (4.30-5.70) Hemoglobin 14.1 g/dL (13.0-17.5) Hematocrit 43.8 % (39.0-53.0) Mean Corpuscular Volume 90 fL (79-100) Mean Corpuscular Hemoglobin 29 pg (25-35) Mean Corpuscular Hemoglobin Concent 32 g/dL (31-37) Red Cell Distribution Width 14.3 % (11.5-14.5) Platelet Count 99 x10^3/uL (140-400) L Neutrophils (%) (Auto) 53 % (31-73) Lymphocytes (%) (Auto) 31 % (24-48) Monocytes (%) (Auto) 10 % (0-9) H Eosinophils (%) (Auto) 5 % (0-3) H Basophils (%) (Auto) 1 % (0-3) Neutrophils # (Auto) 2.6 x10^3uL (1.8-7.7) Lymphocytes # (Auto) 1.6 x10^3/uL (1.0-4.8) Monocytes # (Auto) 0.5 x10^3/uL (0.0-1.1) Eosinophils # (Auto) 0.2 x10^3/uL (0.0-0.7) Basophils # (Auto) 0.0 x10^3/uL (0.0-0.2) Current Medications: Meds: Laboratory Tests Test 02/20/22 07:50 White Blood Count 5.0 x10^3/uL Red Blood Count 4.86 x10^6/uL Hemoglobin 14.1 g/dL Hematocrit 43.8 % Mean Corpuscular Volume 90 fL Mean Corpuscular Hemoglobin 29 pg Mean Corpuscular Hemoglobin Concent 32 g/dL Red Cell Distribution Width 14.3 % Platelet Count 99 x10^3/uL Neutrophils (%) (Auto) 53 % Lymphocytes (%) (Auto) 31 % Monocytes (%) (Auto) 10 % Eosinophils (%) (Auto) 5 % Basophils (%) (Auto) 1 % Neutrophils # (Auto) 2.6 x10^3uL Lymphocytes # (Auto) 1.6 x10^3/uL Monocytes # (Auto) 0.5 x10^3/uL Eosinophils # (Auto) 0.2 x10^3/uL Basophils # (Auto) 0.0 x10^3/uL Current Medications Medications (Trade) Dose Ordered Sig/Leoncio Route PRN Reason Start Time Stop Time Status Last Admin Dose Admin Alprazolam (Xanax) 0.25 mg PRN QHS PRN PO 2nd choice ANXIETY / AGITATION 01/22/22 16:30 02/15/22 16:17 Aspirin (Aspirin Enteric Coated) 81 mg DAILY PO 01/23/22 09:00 02/11/22 14:16 DC 02/11/22 08:54 Donepezil HCl (Aricept) 10 mg QHS PO 01/22/22 21:00 01/24/22 16:39 DC 01/23/22 21:36 Haloperidol (Haldol) 0.5 mg PRN TID PRN PO AGITATION 01/22/22 16:30 01/22/22 16:57 DC 01/22/22 16:29 Memantine (Namenda) 10 mg BID PO 01/22/22 21:00 01/24/22 16:38 DC 01/24/22 09:00 Metoprolol Tartrate (Lopressor) 25 mg BID PO 01/22/22 21:00 02/20/22 20:56 Lisinopril (Prinivil) 10 mg DAILY PO 01/23/22 09:00 02/20/22 07:41 Cetirizine HCl (ZyrTEC) 10 mg DAILY PO 01/23/22 09:00 02/20/22 07:41 Mirabegron (Myrbetriq) 50 mg DAILY PO 01/23/22 09:00 02/20/22 07:40 Pantoprazole Sodium (Protonix) 40 mg DAILYAC PO 01/23/22 07:30 02/20/22 07:41 Atorvastatin Calcium (Lipitor) 80 mg QHS PO 01/22/22 21:00 02/20/22 20:55 Acetaminophen (Tylenol) 650 mg PRN Q6HRS PRN PO MILD PAIN / TEMP > 100.3'F 01/22/22 16:45 02/02/22 09:31 Multi-Ingredient Ointment (Analgesic [place]) 1 [place] PRN QID PRN TP MUSCLE PAIN 01/22/22 16:45 Al Hydroxide/Mg Hydroxide (Mylanta Plus Xs) 15 ml PRN AFTMEALHC PRN PO DYSPEPSIA 01/22/22 16:45 Magnesium Hydroxide (Milk Of Magnesia) 2,400 mg PRN QHS PRN PO 1ST CHOICE CONSTIPATION 01/22/22 16:45 02/18/22 20:31 Olanzapine (ZyPREXA) 2.5 mg PRN Q2HR PRN PO AGITATION 01/22/22 17:00 01/22/22 17:06 DC Olanzapine (ZyPREXA ZYDIS) 2.5 mg PRN Q2HRS PRN PO PSYCHOSIS 01/22/22 17:15 02/16/22 17:32 Trazodone HCl (Desyrel) 50 mg PRN QHS PRN PO insomnia 01/22/22 21:45 02/20/22 20:56 Trazodone HCl (Desyrel) 25 mg DAILY PO 01/23/22 15:30 01/23/22 16:22 DC 01/23/22 15:30 Trazodone HCl (Desyrel) 25 mg 0900,1300,1700 PO 01/23/22 17:00 02/08/22 10:24 DC 02/07/22 17:28 Sodium Chloride 1,000 ml @ 1,000 mls/hr 1X ONCE IV 01/23/22 17:15 01/23/22 18:14 DC 01/23/22 17:15 Mirtazapine (Remeron) 7.5 mg QHS PO 01/30/22 21:00 02/20/22 20:56 Divalproex Sodium (Depakote Sprinkles) 125 mg 0900,1700 PO 01/30/22 17:00 02/03/22 18:27 DC 02/03/22 16:07 Divalproex Sodium (Depakote Sprinkles) 125 mg 0900 PO 02/04/22 09:00 02/11/22 20:41 DC 02/11/22 08:54 Divalproex Sodium (Depakote Sprinkles) 250 mg 1700 PO 02/04/22 17:00 02/11/22 20:41 DC 02/11/22 17:17 Trazodone HCl (Desyrel) 25 mg 1X ONCE PO 02/04/22 09:00 02/04/22 09:01 DC Melatonin (Melatonin) 3 mg QHS PO 02/06/22 21:00 02/20/22 20:55 Trazodone HCl (Desyrel) 25 mg 1700 PO 02/08/22 17:00 02/20/22 17:07 Sertraline HCl (Zoloft) 25 mg DAILY PO 02/09/22 09:00 02/11/22 23:50 DC 02/11/22 08:54 Sertraline HCl (Zoloft) 50 mg DAILY PO 02/12/22 09:00 02/20/22 07:41 Magnesium Citrate (Citroma) 296 ml PRN 1X PRN PO 2ND CHOICE CONSTIPATION 02/10/22 21:15 02/11/22 12:47 Docusate Sodium (Colace) 100 mg BID PO 02/11/22 09:00 02/11/22 07:44 DC Docusate Sodium (Colace Solution) 100 mg PRN BID PRN PO HARD STOOLS 02/11/22 07:45 02/11/22 08:50 DC Docusate Sodium (Colace Solution) 100 mg BID PO 02/12/22 09:00 02/20/22 20:55 Aspirin (Aspirin Chewable) 81 mg DAILYWBKFT PO 02/12/22 08:00 02/20/22 07:41 Divalproex Sodium (Depakote Sprinkles) 250 mg DAILY PO 02/12/22 09:00 02/15/22 11:06 DC 02/15/22 08:49 Divalproex Sodium (Depakote Sprinkles) 375 mg DAILYWSUP PO 02/12/22 17:00 02/15/22 11:06 DC 02/14/22 17:00 Amoxicillin (Amoxil) 500 mg [id number] PO 02/14/22 21:00 02/21/22 21:00 02/20/22 20:56 Lactobacillus Rhamnosus (Culturelle) 1 cap BID PO 02/14/22 21:00 02/20/22 20:55 Divalproex Sodium (Depakote Sprinkles) 375 mg 0900,1700 PO 02/15/22 17:00 02/18/22 09:43 DC 02/18/22 07:51 Hydroxyzine HCl (Atarax) 25 mg TID PRN PRN PO 1st choice Anxiety 02/15/22 18:15 02/19/22 15:30 I have reviewed the current psychotropics carefully including drug interactions. Risk benefit ratio favors no change other than as noted in my dictated progress note. Diagnosis: Problems: (1) Impulse control disorder, unspecified (2) Anxiety disorder, unspecified (3) Dementia, vascular, with depression (4) Dementia, vascular, with delusions (5) Dementia in Alzheimer's disease with depression (6) Dementia in Alzheimer's disease with delusions (7) Dementia of the Alzheimer's type with early onset with behavioral disturbance (8) Major neurocognitive disorder SANCHEZ JEAN MD Feb 20, 2022 21:56
[2022-02-21 06:22] VITALS: BP 136/61
[2022-02-21] MEDS: CETIRIZINE HCL 10 MG TABLET PO SCH (07:53)
[2022-02-21] MEDS: MIRABEGRON 25 MG TAB.ER.24H PO SCH (07:53)
[2022-02-21] MEDS: AMOXICILLIN 250 MG CAPSULE PO SCH (07:53)
[2022-02-21] MEDS: PANTOPRAZOLE 40 MG TABLET. PO SCH (07:53)
[2022-02-21] MEDS: ASPIRIN CHEWABLE 81 MG TABLET. PO SCH (07:53)
[2022-02-21 07:54] VITALS: BP 136/61
[2022-02-21] MEDS: DOCUSATE 100 MG/10 ML SOLUTION. PO SCH (07:54)
[2022-02-21] MEDS: LISINOPRIL 10 MG TABLET PO SCH (07:54)
[2022-02-21] MEDS: METOPROLOL TART IMMED RELEASE 25 MG TABLET. PO SCH (07:54)
[2022-02-21] MEDS: LACTOBACILLUS RHAMNOSUS GG 1 CAPSULE. PO SCH (07:54)
[2022-02-21] MEDS: SERTRALINE 25 MG TABLET. PO SCH (07:54)
--- NOTE | 2022-02-21 09:31 | PDOC ---
Exam Note: Bernard Note: This note is a late entry for 02/19/2022 covers elements not covered in my initial note. Subjective: The patient was seen individually on 02/19/2022, discussed and reviewed the chart with Keily MONTALVO. The patient slept 7-1/2 hours previous night. He remains confused, seemed more settled, less anxious, less intrusive. Received Atarax in the afternoon. Platelets have improved from 93 to 110 since she stopped the Depakene yesterday. WBC is 4.9. Review of Systems: No CV, , pulmonary, eye, ENT system symptoms on review. Reliability poor. Mental Status Exam: The patient is oriented to himself. Insight and judgment, recent and remote memory, attention and concentration, fund of knowledge is poor consistent with his diagnoses. Laboratory Data: Reviewed. Impression: Major neurocognitive disorder, early Alzheimer, vascular with delusion, depression, behavioral disturbance. Anxiety disorder unspecified. Impulse control disorder unspecified. Plan: Continue rest of the psychotropics except Depakote. We will continue to assess how the patient is doing without Depakote but if no aggression or disruptive behaviors resurfaces we will transition home with outpatient medical follow up with his primary care physician for the low platelets which are gradually improving. Adjust further as clinically indicated. Assessment: Vital Signs/I&O: Vital Signs Date Time Temp Pulse Resp B/P (MAP) Pulse Ox O2 Delivery O2 Flow Rate FiO2 02/21/22 07:54 69 136/61 02/21/22 06:22 97.4 18 93 02/18/22 15:43 Room Air I & O 02/20/22 02/20/22 02/21/22 15:00 23:00 07:00 Intake Total 720 ml 720 ml Balance 720 ml 720 ml Labs: Laboratory Tests Test 02/20/22 14:45 POC SARS CoV-2 Antigen Negative (NEGATIVE) Current Medications: I have reviewed the current psychotropics carefully including drug interactions. Risk benefit ratio favors no change other than as noted in my dictated progress note. Diagnosis: Problems: (1) Impulse control disorder, unspecified (2) Anxiety disorder, unspecified (3) Dementia, vascular, with depression (4) Dementia, vascular, with delusions (5) Dementia in Alzheimer's disease with depression (6) Dementia in Alzheimer's disease with delusions (7) Dementia of the Alzheimer's type with early onset with behavioral disturbance (8) Major neurocognitive disorder SANCHEZ JEAN MD Feb 21, 2022 09:31
--- NOTE | 2022-02-21 09:49 | PDOC ---
Exam Note: Bernard Note: This note is a late entry for 02/20/2022 covers elements not covered in my initial note. Subjective: The patient was seen individually on 02/20/2022, discussed and reviewed the chart with Keily MONTALVO. The patient slept 7-1/4 hours previous night. Platelet count today is 99. Overall he is doing reasonably well despite Depakote having been stopped. I met with him in the dayroom. Review of Systems: No CV, , pulmonary, eye, ENT system symptoms on review. Reliability poor. Mental Status Exam: The patient is oriented to himself. Insight and judgment, recent and remote memory, attention and concentration, fund of knowledge is poor consistent with his diagnoses. Laboratory Data: Reviewed. Impression: Major neurocognitive disorder, early Alzheimer, vascular with delusion, depression, behavioral disturbance. Anxiety disorder unspecified. Impulse control disorder unspecified. Plan: Transition plans home, possibly tomorrow. Assessment: Vital Signs/I&O: Vital Signs Date Time Temp Pulse Resp B/P (MAP) Pulse Ox O2 Delivery O2 Flow Rate FiO2 02/21/22 07:54 69 136/61 02/21/22 06:22 97.4 18 93 02/18/22 15:43 Room Air I & O 02/20/22 02/20/22 02/21/22 15:00 23:00 07:00 Intake Total 720 ml 720 ml Balance 720 ml 720 ml Labs: Laboratory Tests Test 02/20/22 14:45 POC SARS CoV-2 Antigen Negative (NEGATIVE) Current Medications: I have reviewed the current psychotropics carefully including drug interactions. Risk benefit ratio favors no change other than as noted in my dictated progress note. Diagnosis: Problems: (1) Impulse control disorder, unspecified (2) Anxiety disorder, unspecified (3) Dementia, vascular, with depression (4) Dementia, vascular, with delusions (5) Dementia in Alzheimer's disease with depression (6) Dementia in Alzheimer's disease with delusions (7) Dementia of the Alzheimer's type with early onset with behavioral disturbance (8) Major neurocognitive disorder SANCHEZ JEAN MD Feb 21, 2022 09:49
--- NOTE | 2022-02-23 22:07 | DS ---
DATE OF DISCHARGE: 02/21/2022 DISCHARGE SUMMARY/PSYCHIATRIC PROGRESS NOTE This is a late entry, date of service 02/21, covers elements not covered in my initial note, 02/21. REASON FOR ADMISSION: Please refer to the admission history for details. Briefly, the patient is a 76-year-old male referred by his primary care physician, admitted from home where he resides with his , Elena. He is referred for increasing agitation, being combative towards his spouse, resistive with cares and medications with worsening sundowning marked insomnia, had not slept for 48 hours prior to admission and worsening word salad. He has been cared at home by his , Elena for the past 5 years with progressive dementia progressing in him. He has been incontinent, became physically aggressive towards his when she tried to clean him up. He had previously been sent to the ER. Behavior is deemed dangerous, unmanageable resulting in this referral. SIGNIFICANT FINDINGS AND CLINICAL COURSE: Following admission, the patient was seen daily individually by myself from a psychiatric standpoint, medical followup, Dr. South/Dr. العراقي. The patient had a very challenging course during this admission. Changes were made in his psychotropics and he seemed to respond to a combination of Depakote as a mood stabilizer, trazodone for his insomnia and previous trazodone scheduled during the day for agitation was tapered and stopped because of marked sedation. He was also on Zoloft 50 mg a day and Remeron 7.5 mg p.o. at bedtime. At this stage, his platelets were dropping and we stopped the Depakote. He did have a UTI, was on Amoxil and this could have contributed to platelet drop as well. Nevertheless, he tolerated stopping the Depakote and once stable, he was transitioned home with his . We had recommended a higher level of care, but his , Elena wanted to try him at home. It is recommended that he followup outpatient with his primary care physician for his platelet counts as well. REVIEW OF SYSTEMS: Prior to discharge, no CV, , pulmonary, eye, ENT system symptoms on review. Reliability poor. MENTAL STATUS EXAMINATION: Oriented to himself. Insight, judgment, recent and remote memory, attention, concentration, fund of knowledge poor consistent with his diagnoses. FINAL DIAGNOSES: Major neurocognitive disorder, Alzheimer, vascular with delusion, depression, behavioral disturbance, anxiety disorder, unspecified; impulse control disorder, unspecified urinary tract infection. Rest is unchanged from admission. DISCHARGE MEDICATIONS: Please refer to the [facility]. DISCHARGE INSTRUCTIONS: Outpatient psychiatric and medical followup as arranged prior to discharge. Time for discharge day management greater than [address]: Kylah TID: [id number]
== END 2022-02-21 11:10 | disposition home health service (06) | DRG 57 ==
LOC: GEROPSY 15:15
PROVIDERS: ADMIT Psychiatry & Neurology Psychiatry; ATTEND Psychiatry & Neurology Psychiatry
DX: G30.9 Alzheimer's disease, unspecified (principal); F01.50 Vascular dementia, unspecified severity, without behavioral disturbance, psychotic disturbance, mood disturbance, and anxiety; E87.0 Hyperosmolality and hypernatremia; F02.81 Dementia in other diseases classified elsewhere, unspecified severity, with behavioral disturbance; N39.0 Urinary tract infection, site not specified; Z20.822 Contact with and (suspected) exposure to COVID-19; E11.9 Type 2 diabetes mellitus without complications; E78.5 Hyperlipidemia, unspecified; F32.9 Major depressive disorder, single episode, unspecified; F41.9 Anxiety disorder, unspecified; F63.9 Impulse disorder, unspecified; G40.909 Epilepsy, unspecified, not intractable, without status epilepticus; G47.00 Insomnia, unspecified; I10 Essential (primary) hypertension; I25.10 Atherosclerotic heart disease of native coronary artery without angina pectoris; K22.70 Barrett's esophagus without dysplasia; N40.0 Benign prostatic hyperplasia without lower urinary tract symptoms; W18.30XA Fall on same level, unspecified, initial encounter; Y93.89 Activity, other specified; Y92.239 Unspecified place in hospital as the place of occurrence of the external cause; Y99.8 Other external cause status; Z66 Do not resuscitate; Z95.1 Presence of aortocoronary bypass graft
CPT/HCPCS: 36415; 70450; 80048; 80053; 80061; 80164; 81001; 82140; 82306; 82607; 83036; 83540; 83550; 83735; 84436; 84443; 84480; 85025; 85027; 85379; 86592; 87077; 87086; 97530; 97535; J7030